=== PATIENT | female | born 1970 | race Caucasian/White ===

== ENCOUNTER → 2019-11-11 15:35 | Outpatient (CLI) | payer OTHER, SELFPAY ==
--- NOTE | ~2019-11-11 | MM_ITS ---
EXAMINATION: MM screening anisa BI w alex HISTORY: Screening mammogram TECHNIQUE: Craniocaudal and mediolateral oblique 3-D tomosynthesis images were obtained and synthetic 2-D images were generated. CAD analysis was submitted and interpreted. COMPARISON: 10/30/2018 Diagnostic right digital mammogram , 12/11/2016, 11/02/2015 bilateral digital screening mammogram examinations BREAST PARENCHYMAL COMPOSITION: The breasts are heterogeneously dense, which may obscure small masses . FINDINGS: There is no evidence of suspicious mass, calcification, or architectural distortion to sugg est malignancy in either breast. There has been no suspicious interval change. IMPRESSION: 1. No mammographic evidence of malignancy. 2. Recommend routine screening mammography in one year. BI-RADS Category 1: Negative Reviewed, dictated and finalized at location A. RANGE TENDER
== END ==
PROVIDERS: Visit Provider Obstetrics & Gynecology
DX: Z12.31 Encounter for screening mammogram for malignant neoplasm of breast (principal)
CPT/HCPCS: 77063; 77067

== ENCOUNTER → 2020-12-01 09:52 | Outpatient (CLI) | payer OTHER, SELFPAY ==
--- NOTE | ~2020-12-01 | MM_ITS ---
EXAMINATION: MM screening [facility] BI w alex HISTORY: Screening mammogram TECHNIQUE: Craniocaudal and mediolateral oblique 3-D tomosynthesis images were obtained and synthetic 2-D images were generated. CAD analysis was submitted and interpreted. COMPARISON: 11/21/2019, 10/30/2018, 10/15/2018, 12/11/2016 BREAST PARENCHYMAL COMPOSITION: The breasts are heterogeneously dense, which may obscure small masses . FINDINGS: There is no evidence of suspicious mass, calcification, or architectural distortion to sugg est malignancy in either breast. There has been no suspicious interval change. IMPRESSION: 1. No mammographic evidence of malignancy. 2. Recommend routine screening mammography in one year. BI-RADS Category 1: Negative Reviewed, dictated and finalized at location A.
== END ==
PROVIDERS: Visit Provider Obstetrics & Gynecology
DX: Z12.31 Encounter for screening mammogram for malignant neoplasm of breast (principal)
CPT/HCPCS: 77063; 77067

== ENCOUNTER → 2021-02-09 13:01 | Outpatient (CLI) | payer OTHER, SELFPAY ==
--- NOTE | ~2021-02-09 | CT_ITS ---
EXAMINATION:CT diagnostic chest wo con DATE: 02/09/2021 13:21 INDICATION: Shortness of breath. TECHNIQUE: Computed tomography (CT) of the chest was performed without intravenous contrast. Automate d exposure control and iterative reconstruction technique were employed. The dose-length product (DLP ) was 54.99 mGy-cm. COMPARISON: None. FINDINGS: There is no pneumonia or pleural effusion. The heart size is normal. No pericardial effusio n. There are coronary artery calcifications. Partially visualized is an 8.5 cm cyst in left kidney. T here is moderate thoracic spondylosis. There is mild chronic anterior wedging of T12 vertebral body. IMPRESSION: 1. Normal lungs. Reviewed, dictated and finalized at location A. IMPRESSION: 1. Normal lungs.
== END ==
DX: E78.2 Mixed hyperlipidemia (principal)
CPT/HCPCS: 71250

== ENCOUNTER → 2021-03-17 11:46 | Outpatient (CLI) | payer OTHER, SELFPAY ==
--- NOTE | ~2021-03-17 | US_ITS ---
Corrected Report Correction to Ordering Provider Order # Associated 03/17/2021 [facility] EXAMINATION: US renal BI EXAM DATE: 03/17/2021 12:05 INDICATION: Cyst of kidney, acquired. TECHNIQUE: Multiple grayscale and Doppler images of the kidneys were obtained (by a technologist who performed the scan) and subsequently reviewed. There is no prior study for comparison. FINDINGS: Right kidney: There is normal contour and echogenicity. It measures 10.1 x 4.0 x 4.4 centimeters. There are no focal renal lesions identified. There is no hydronephrosis. Left kidney: There is normal contour and echogenicity. It measures 12.8 x 5.2 x 5.1 centimeters. There is an anechoic lesion at the superior pole of the right kidney measuring up to 8.5 cm, appearance is consistent with a cyst. There is no hydronephrosis. Bladder unremarkable. IMPRESSION: Large left renal cyst. Reviewed, dictated and finalized at location B. MTDD IMPRESSION: Large left renal cyst.
== END ==
DX: N28.1 Cyst of kidney, acquired (principal)
CPT/HCPCS: 76775

== ENCOUNTER → 2021-11-08 18:07 | Outpatient (CLI) | payer OTHER, SELFPAY ==
--- NOTE | ~2021-11-08 | DEXA_ITS ---
Bone Density Report Name: BUTCH MCCORD Age: 51 Sex: Female Ethnicity: White Date of : 1970 Indication: screening for osteoporosis; prior fracture; Referring Provider: MIGUELITO, TANISHA Mon Study: Bone densitometry was performed. Exam Date: November 08, 2021 Accession number: [id number] Bone Density: Region BMD T-score Z-score Classification AP Spine (L1-L4) 0.956 -0.8 0.0 Normal Femoral Neck (Left) 0.726 -1.1 -0.3 Osteopenia Total Hip (Left) 0.824 -1.0 -0.5 Normal Femoral Neck (Right) 0.692 -1.4 -0.6 Osteopenia Total Hip (Right) 0.790 -1.2 -0.7 Osteopenia Total Hip Mean 0.807 -1.1 -0.6 Osteopenia World Health Organization criteria for BMD impression classify patients as: Normal (T-score at or above -1.0), Osteopenia (T-score between -1.0 and -2.5), or Osteoporosis (T-score at or below -2.5). 10-year Fracture Risk: FRAX not reported because: Premenopausal woman Prior hip or vertebral fracture Treated for osteoporosis Clinical Information Provided by Patient: Have had a previous hip or vertebral fracture Has had a low trauma fracture Is being treated for osteoporosis Has used the following medications: HRT (i.e. estrogen/hormone therapy), Vitamin D Patient maximum height was 63.5 No regular weight bearing exercise Does not regularly consume dairy products Drinks caffeinated beverages Onset of menses at age 15 Premenopausal Number of children 1 Impression: The patient's bone mass is within expected range for age, gender and ethnicity. The patient has risk factors, including: previous fracture. Discussion: It is important to ask patients whether they are taking their medications and to encourage continued and appropriate compliance with their osteoporosis therapies to reduce fracture risk. It is also important to review their risk factors and encourage appropriate calcium and vitamin D intakes, exercise, fall prevention and other lifestyle measures. Follow-Up: Consider a repeat BMD and Vertebral Fracture Assessment (VFA) exam in 2 years or sooner if medically necessary, to reassess this patient's status. Reported by: [facility] on 11/08/2021 6:33:00 PM. Reviewed, dictated and finalized at location Patty MARTINEZ
== END ==
PROVIDERS: PCP Internal Medicine; Visit Provider Internal Medicine
DX: Z78.0 Asymptomatic menopausal state (principal); M85.852 Other specified disorders of bone density and structure, left thigh; M85.851 Other specified disorders of bone density and structure, right thigh
CPT/HCPCS: 77080

== ENCOUNTER → 2021-12-01 14:28 | Outpatient (CLI) | payer OTHER, SELFPAY ==
--- NOTE | ~2021-12-01 | CT_ITS ---
EXAMINATION: CT abdomen wo/w con EXAM DATE: 12/01/2021 15:03 INDICATION: Cyst of kidney . TECHNIQUE: Spiral CT of the abdomen was performed without and then with intravenous injection of 100 mL Omnipaque 350. Axial, coronal and sagittal images of the abdomen were reviewed. The dose-length product (DLP) for this examination was 478.53 mGy-cm. The exposure was tailored according to patien t size (auto mA exposure control), and iterative reconstruction (ASIR) was used as additional dose re duction technique. Correlation is made to kidney ultrasound 03/17/2021. FINDINGS: The liver, spleen, adrenal glands and pancreas are unremarkable. There are gallstones with in an otherwise unremarkable gallbladder. No evidence of obstructive biliary disease. Portal and sp lenic veins are patent. Kidneys enhance symmetrically. There is no hydronephrosis. There is no neph rolithiasis on the noncontrast scan. There is a 9 cm cyst in the superior pole of the left kidney. There is no retroperitoneal lymphadenopathy. The appendix is normal. The stomach and small bowel are unremarkable. There is expected amount of c olonic stool. No free intraperitoneal gas. The heart is normal in size. There are no pericardial or pleural effusions. The lung bases are unremarkable. The bones are unremarkable. IMPRESSION: 1. Large left renal cyst. Reviewed, dictated and finalized at location G. IMPRESSION: 1. Large left renal cyst.
[2021-12-01 14:51] LABS: Estimated Glomerular Filt Rate > 60
== END ==
PROVIDERS: PCP Internal Medicine; Visit Provider Urology
DX: N28.1 Cyst of kidney, acquired (principal)
CPT/HCPCS: 74170; Q9967

== ENCOUNTER → 2022-03-23 14:59 | Outpatient (CLI) | payer OTHER, SELFPAY ==
--- NOTE | ~2022-03-23 | MR_ITS ---
EXAMINATION: MR IAC wo/w con DATE: 03/23/2022 16:04 INDICATION: Asymmetric sensorineural hearing loss, right greater than left TECHNIQUE: Magnetic resonance imaging (MRI) of the brain and brainstem was performed without and with 12 mL Multihance intravenous contrast. Sequences included sagittal and axial T1-weighted FSE, axial diffusion-weighted FS EPI, axial T2*-weighted GRE, axial T2-weighted FLAIR Propeller, axial T2-weight ed Propeller, small pxiwi-fe-ztqw coronal FIESTA, small fmcai-qt-klyq coronal T1-weighted FSE, and sm all nhjfp-zo-fcmb axial T1-weighted SPGR. Postcontrast sequences included axial T1-weighted FSE, smal l ufhcu-ze-evis coronal T1-weighted FSE, and small thsdd-kr-nkuj axial T1-weighted SPGR. Apparent dif fusion coefficient (ADC) maps were created. COMPARISON: None. FINDINGS: There are no areas of restricted diffusion to suggest acute infarction. Tiny T2 hyperintense old lacu selena infarct in the right mid brain in the region of the substantia nigra and zeny cerebri. No intracr anial hemorrhage or abnormal intracranial mass lesion. There are no intraparenchymal signal abnormali ties seen on the other pulse sequences. The ventricles are symmetric and normal in size. There are no abnormal extra-axial fluid collections. Normal seventh/eighth cranial nerve complexes. The cochlea a nd semicircular canals are normal on both the left and right. No cerebellopontine angles masses. No evidence of mastoid or middle ear fluid. Flow voids are seen in the cerebral arteries on the T2-marilynn ghted sequences consistent with their expected patency. Mild mucosal thickening the bilateral ethmoid sinuses. Visualized orbits and soft tissues are unremarkable. There are no areas of abnormal enhance ment on the post contrast images. IMPRESSION: 1. Tiny old lacunar infarct in the right midbrain. Otherwise normal brain. Reviewed, dictated and finalized at location B.
[2022-03-23 15:24] LABS: Estimated Glomerular Filt Rate > 60
== END ==
PROVIDERS: PCP Internal Medicine; Visit Provider Otolaryngology
DX: H90.5 Unspecified sensorineural hearing loss (principal); I63.81 Other cerebral infarction due to occlusion or stenosis of small artery
CPT/HCPCS: 70553; A9577

== ENCOUNTER → 2022-10-23 16:17 | Outpatient (CLI) | payer OTHER, SELFPAY ==
--- NOTE | ~2022-10-23 | MM_ITS ---
EXAMINATION: MM screening anisa BI w alex HISTORY: Screening TECHNIQUE: Craniocaudal and mediolateral oblique 3-D tomosynthesis images were obtained and synthetic 2-D images were generated. CAD analysis was submitted and interpreted. COMPARISON: Comparison to multiple prior studies sequentially, with oldest reviewed study dated 11/02. BREAST PARENCHYMAL COMPOSITION: The breasts are heterogeneously dense, which may obscure small masses FINDINGS: There is no evidence of suspicious mass, calcification, or architectural distortion to sugg est malignancy in either breast. There has been no suspicious interval change. IMPRESSION: 1. No mammographic evidence of malignancy. 2. Recommend routine screening mammography in one year. BI-RADS Category 1: Negative Reviewed, dictated and finalized at location A. PILOT ENGINEER
== END ==
PROVIDERS: PCP Obstetrics & Gynecology; Visit Provider Obstetrics & Gynecology
DX: Z12.31 Encounter for screening mammogram for malignant neoplasm of breast (principal)
CPT/HCPCS: 77063; 77067

== ENCOUNTER → 2022-11-03 09:11 | Outpatient (CLI) | payer OTHER, SELFPAY ==
--- NOTE | ~2022-11-03 | US_ITS ---
US renal BI 11/03/2022 09:52 Procedure: Realtime transabdominal ultrasound of the kidneys and bladder. Indication: Left renal cyst Comparison: 03/17/2021 Findings: Renal echotexture is normal bilaterally without hydronephrosis, contour deforming mass or r enal calculus. There is a 9 cm left renal cyst. The right kidney measures 10.9 cm and left kidney ryder sures 13.1 cm. Bladder within normal limits. Impression: 1: Left renal cyst measuring 9 cm. Reviewed, dictated and finalized at location B. E FERRY OPERATOR Impression: 1: Left renal cyst measuring 9 cm.
== END ==
PROVIDERS: PCP Internal Medicine; Visit Provider Internal Medicine
DX: N28.1 Cyst of kidney, acquired (principal)
CPT/HCPCS: 76775

== ENCOUNTER 2022-11-07 12:05 | Day surgery (SDC) | payer OTHER, SELFPAY ==
[2022-11-01 08:10] VITALS: BMI 25.0
--- NOTE | 2022-11-06 07:54 | SUR.PREOP ---
11/06/2022- contacted patient to confirm approved ride home- patient was planning on taking uber /public transportation home- informed patient of medical transport service [facility] contracts- the number to [facility] was given to patient
--- NOTE | 2022-11-06 15:18 | P.PNAN_ITS ---
Anes - Initial Pre Proc Eval Procedure: Operation Date: 11/07/22 14:00 Proposed Procedures p Esophagogastroduodenoscopy - Jordin Hernandez MD Date/Time: 11/06/22 15:18 Surgeon: Jordin Hernandez MD Pre Op Diagnosis: Other Diseases of Stomach and Duodenum Patient Data Age: 52 Gender: F Height: 1.6 m Weight: 64 kg Allergies Allergy/AdvReac Type Severity Reaction Status Date / Time No Known Allergies Allergy Mild Unverified 03/20/07 13:06 Home Medications Medication Instructions Recorded Confirmed Type sodium,potassium,mag sulfates 17.5 See Rx Instructions PO .COMPLEX 09/08/20 11/01/22 Rx gram-3.13 gram-1.6 gram oral soln #354 mL (Suprep Bowel Prep Kit) lumateperone 42 mg capsule 42 mg PO DAILY 11/01/22 11/01/22 History (Caplyta) pantoprazole 40 mg tablet,delayed 40 mg PO DAILY 11/01/22 11/01/22 History release viloxazine 200 mg capsule,extended 200 mg PO DAILY 11/01/22 11/01/22 History release 24 hr (Qelbree) Patient hx anesthesia problems: none Family hx anesthesia problems: none Results Review: All pre-operative results and documents have been reviewed as part of the pre- operative evaluation. [facility] Past Medical History Medical History (Updated 11/07/22 @ 14:33 by Rodrigo Caldwell DO) Anxiety Asthma Depression GERD (gastroesophageal reflux disease) History of CVA (cerebrovascular accident) seen on CT Social History Social History Smoking status: Never smoker Alcohol intake: current Alcohol use details: once a week Substance use: never Substance use type: does not use Living arrangements: alone Spiritual care concerns: No Anes - Eval Final PreProcedure Day of Procedure 11/06/22 15:18 Patient weight: normal Heart: regular rate and rhythm Lungs: clear to auscultation and normal air movement Airway: Mallampati scale class II Neurological: alert and oriented Last oral intake: >/= 8 hours ASA classification: III Emergent: no Anesthetic plan: proceed Anesthesia type and monitoring: general GIVS and standard monitoring Results Review: All pre-operative results and documents have been reviewed as part of the pre- operative evaluation. Informed Consent: The patient's anesthetic plan and its attendant risks and benefits were discussed with the patient/family/POA. Questions were solicited and answers provided to the satisfaction of the patient/family/POA.
--- NOTE | 2022-11-06 17:16 | PM.HPGS ---
History of Present Illness History of Present Illness Consent: Risks, benefits, and alternatives have been discussed and questions answered. Patient agrees to proceed with procedure. Chief complaint: Other Diseases of Stomach and Duodenum Narrative: Nicole Marina is a 52 year old female referred for endoscopy . She has a couple of issues. She has noticed near the bottom of her ribcage bilaterally protrusion from time to time that she wonders if it may be hernias. She also had a spell last April were for solid months she was unable to eat due to nausea. She lost about 20 lb. She denies dysphagia. She has no history of ulcers. Review of Systems Review of Systems: All systems reviewed & are unremarkable except as noted in HPI and below PMFSH Past Medical History Medical History Anxiety Asthma Depression GERD (gastroesophageal reflux disease) Social History Social History Smoking status: Never smoker Alcohol intake: current Alcohol use details: once a week Substance use: never Substance use type: does not use Living arrangements: alone Spiritual care concerns: No Meds Home Medications and Allergies Home Medications Medication Instructions Recorded Confirmed Type sodium,potassium,mag sulfates 17.5 See Rx Instructions PO .COMPLEX 09/08/20 11/01/22 Rx gram-3.13 gram-1.6 gram oral soln #354 mL (Suprep Bowel Prep Kit) lumateperone 42 mg capsule 42 mg PO DAILY 11/01/22 11/01/22 History (Caplyta) pantoprazole 40 mg tablet,delayed 40 mg PO DAILY 11/01/22 11/01/22 History release viloxazine 200 mg capsule,extended 200 mg PO DAILY 11/01/22 11/01/22 History release 24 hr (Qelbree) Allergies Allergy/AdvReac Type Severity Reaction Status Date / Time No Known Allergies Allergy Mild Unverified 03/20/07 13:06 Exam Const: General: alert Orientation/consciousness: patient oriented x3 Resp: Auscultation: clear to auscultation bilaterally Cardio: Rhythm: regular rhythm GI: GI Palp: Yes Soft to palpation and No Tenderness to palpation present (GI) Neuro: General: patient oriented x3 Assessment and Plan Assessment and plan (1) Dyspepsia: Code(s): R10.13 - Epigastric pain Status: Acute Assessment and Plan: EGD with possible biopsy or dilatation or cautery.
[2022-11-07 13:04] VITALS: BP 143/92; PULSE 75; RESP 18; TEMP 37.4; O2SAT 100; BMI 23.6
[2022-11-07] MEDS: LACTATED RINGERS 1,000 ML 150 ML IV CONT (13:32)
[2022-11-07 14:22] VITALS: BP 112/80; PULSE 81; RESP 14; O2SAT 98
[2022-11-07 14:32] VITALS: BP 130/86; PULSE 66; RESP 16; O2SAT 99
--- NOTE | 2022-11-07 14:33 | WPDANESPN ---
Anes - Prog Note Post-Op Date/Time: 11/07/22 14:33 Cardiovascular status: normal Respiratory status: normal Airway patency: baseline Mental status: baseline Post-Op hydration status: normal Vital Signs: Last Vital Signs Temp 37.4 C 11/07/22 13:04 Pulse 81 11/07/22 14:22 Resp 14 11/07/22 14:22 BP 112/80 11/07/22 14:22 Pulse Ox 98 11/07/22 14:22 O2 Del Method Room Air 11/07/22 14:22 Pain Score (VAS): 0 Post-procedural complaints: none Patient Feedback: Patient satisfied with anesthetic care. Other Findings: Patient vital signs back to baseline. Patient denies nausea and vomiting. Patient's pain under control. Patient OK for discharge.
[2022-11-07 14:42] VITALS: BP 128/80; PULSE 70; RESP 16; O2SAT 99
== END 2022-11-07 15:10 | disposition home or self-care (01) ==
PROVIDERS: PCP Internal Medicine; Visit Provider Internal Medicine Gastroenterology
PROC: 0DJ08ZZ Inspection of Upper Intestinal Tract, Via Natural or Artificial Opening Endoscopic (ICD-10-PCS; CPT 43235; principal; 2022-11-07 14:00)
DX: R10.13 Epigastric pain (principal)
CPT/HCPCS: 43239

== ENCOUNTER → 2023-09-03 15:32 | Outpatient (CLI) | payer OTHER, SELFPAY ==
--- NOTE | ~2023-09-03 | US_ITS ---
EXAMINATION: US carotid duplex BI DATE: 09/03/2023 15:53 INDICATION: Dizziness and giddiness TECHNIQUE: Grayscale, color Doppler, and pulsed Doppler images of the cervical carotid arteries were obtained. The degree of vessel stenosis is placed in one of the following categories: normal, <50%, 5 0-69%, >=70% but less than near-occlusion, near-occlusion, or total occlusion. Note that percent sten osis relative to normal distal artery lumen diameter is indirectly measured from velocity measurement s as described by Steve, et al. Radiology 2003; 229:340-346. COMPARISON: None. FINDINGS: RIGHT: The right common carotid artery (CCA) peak systolic velocity (PSV) is 89 cm/s. The right internal car otid artery (ICA) PSV is 67 cm/s. The right ICA end-diastolic velocity (EDV) is 23 cm/s. The right IC A/CCA PSV ratio is 1.3. Grayscale and color Doppler images yield an estimate of <50% diameter reducti on from plaque in the ICA. The external carotid artery (ECA) PSV is 60 cm/s. There is antegrade flow in the right vertebral artery. LEFT: The left CCA PSV is 77 cm/s. The left ICA PSV is 89 cm/s. The left ICA EDV is 35 cm/s. The left ICA/C CA PSV ratio is 1.2. Grayscale and color Doppler images yield an estimate of <50% diameter reduction from plaque in the ICA. The ECA PSV is 45 cm/s. There is antegrade flow in the left vertebral artery. IMPRESSION: 1. <50% stenosis from minimal plaque in the right internal carotid artery. 2. <50% stenosis from minimal plaque in the left internal carotid artery. Reviewed, dictated and finalized at location A. I CUTTER
== END ==
PROVIDERS: PCP Internal Medicine; Visit Provider Internal Medicine
DX: I65.23 Occlusion and stenosis of bilateral carotid arteries (principal)
CPT/HCPCS: 93880

== ENCOUNTER 2023-12-18 16:14 | Outpatient (CLI) | payer OTHER, SELFPAY ==
--- NOTE | ~2023-12-18 | MM_ITS ---
EXAMINATION: MM screening anisa BI w alex HISTORY: Screening mammogram TECHNIQUE: Craniocaudal and mediolateral oblique 3-D tomosynthesis images were obtained and synthetic 2-D images were generated. CAD analysis was submitted and interpreted. COMPARISON: October 23, 2022, December 01, 2020 bilateral screening mammogram examination BREAST PARENCHYMAL COMPOSITION: The breasts are heterogeneously dense, which may obscure small masses . FINDINGS: There is no evidence of suspicious mass, calcification, or architectural distortion to sugg est malignancy in either breast. There has been no suspicious interval change. IMPRESSION: 1. No mammographic evidence of malignancy. 2. Recommend routine screening mammography in one year. BI-RADS Category 1: Negative Reviewed, dictated and finalized at location A.
== END 2023-12-18 16:15 ==
LOC: MICIMG 16:15
PROVIDERS: PCP Obstetrics & Gynecology; Visit Provider Obstetrics & Gynecology
DX: Z12.31 Encounter for screening mammogram for malignant neoplasm of breast (principal)
CPT/HCPCS: 77063; 77067

== ENCOUNTER 2024-05-02 10:45 | Outpatient (CLI) | payer OTHER, SELFPAY ==
--- NOTE | ~2024-05-02 | DEXA_ITS ---
Bone Density Report Name: BUTCH ELLSWORTH Age: 53 Sex: Female Ethnicity: White Date of : 1970 Indication: postmenopausal; screening for osteoporosis; height loss; asthma or emphysema; Referring Provider: MIGUELITO, TANISHA Mon Study: Bone densitometry was performed. Exam Date: May 02, 2024 Accession number: [id number] Bone Density: Region BMD T-score Z-score Classification AP Spine(L1-L4) 0.938 -1.0 0.0 Normal Femoral Neck (Left) 0.742 -1.0 0.0 Normal Total Hip (Left) 0.908 -0.3 0.3 Normal Femoral Neck (Right) 0.682 -1.5 -0.5 Osteopenia Total Hip (Right) 0.876 -0.5 0.1 Normal Total Hip Mean 0.892 -0.4 0.2 Normal World Health Organization criteria for BMD impression classify patients as: Normal (T-score at or above -1.0), Osteopenia (T-score between -1.0 and -2.5), or Osteoporosis (T-score at or below -2.5). 10-year Fracture Risk(1): Major Osteoporotic Fracture 6.3% Hip Fracture 0.5% Reported Risk Factors: [place] (), Neck BMD=0.682, BMI=25.1 (1) FRAX(R) Version 3.08. Fracture probability calculated for an untreated patient. Fracture probability may be lower if the patient has received treatment. Clinical Information Provided by Patient: Has used the following medications: Calcium Has the following medical conditions: Asthma or Emphysema Patient maximum height was 63.5 No regular weight bearing exercise Drinks caffeinated beverages Onset of menses at age 16 Number of children 1 Impression: The patient has low bone mass, based on the Right Femoral Neck T-score. The patient has an estimated ten-year risk of hip fracture of 0.5% and an estimated ten-year risk of major fracture of 6.3%, based on the WHO FRAX algorithm. Discussion: BONE DENSITY IS LOW AT ONE OR MORE SKELETAL SITES. This patient's lowest T-score is low at one or more skeletal sites. It meets the World Health Organization's (WHO) criteria for ?low bone mass? (T-score between -1.0 and -2.5). The patient's 10-year risk of fracture as calculated by FRAX is less than the threshold where pharmacological therapy is recommended by the National Osteoporosis Foundation (NOF). However, all treatment decisions require clinical judgment and consideration of individual patient factors, including patient preferences, comorbidities, previous drug use, risk factors not captured in the FRAX model (e.g., frailty, falls, vitamin D deficiency, increased bone turnover, interval significant decline in bone density) and possible under or overestimation of fracture risk by FRAX. The patient should follow a healthful lifestyle (good nutrition with adequate calcium and vitamin D, and appropriate weight-bearing exercise). Follow-Up: Consider repeating this study in 2 to 3 years to reassess this patient's status, or soon
== END 2024-05-02 10:46 | disposition home or self-care (01) ==
LOC: ANHIMG 10:46
PROVIDERS: PCP Obstetrics & Gynecology; Visit Provider Internal Medicine
DX: Z78.0 Asymptomatic menopausal state (principal); M85.851 Other specified disorders of bone density and structure, right thigh
CPT/HCPCS: 77080

== ENCOUNTER 2024-06-05 10:52 | Emergency (ER) | payer OTHER, SELFPAY ==
--- NOTE | ~2024-06-05 | CT_ITS ---
EXAMINATION: CTA brain carotid DATE: 06/05/2024 15:51 INDICATION: left sided weakness TECHNIQUE: Computed tomographic angiography (CTA) of the head and neck was performed without and with 100 mL Omnipaque-350 intravenous contrast. Automated exposure control and iterative reconstruction t [employer] were employed. The dose-length product was 864.83 mGy-cm. Maximum intensity projection and volume rendered 3D-reconstructions were created by the technologist on a separate workstation. COMPARISON: CT brain, same date. FINDINGS: CTA HEAD: No large vessel occlusion, aneurysm, high flow vascular malformation, nidus or extravasation. Persist ent origin of the right [employer]BER. Symmetric parenchymal enhancement. Decreased enhancement in the le ft sigmoid sinus. No enhancement noted in the jugular bulb. Minimal enhancement in the left internal jugular vein. The remaining cerebral veins are patent. CTA NECK: Aortic arch and proximal great vessels: Normal arch anatomy. Mild arch calcification. Right common carotid, carotid bifurcation, and internal carotid artery: No plaque.There is 0% stenosi s of the proximal right internal carotid artery relative to normal distal artery lumen diameter (NASC ET criteria). Left common carotid, carotid bifurcation, and internal carotid artery: No plaque.There is 0% stenosis of the proximal left internal carotid artery relative to normal distal artery lumen diameter (NASCET criteria). Vertebral arteries: No significant plaque or stenosis. Other findings: Decreased enhancement in the left internal jugular vein relative to the right. Cervic al spondylosis. IMPRESSION: No large vessel intracranial occlusion, high-grade intracranial stenosis, or aneurysm. No carotid or vertebral artery occlusion, dissection, or significant stenosis. Possible left sigmoid sinus and jugular bulb venous thrombosis, versus artifact from mixing with unop acified venous blood. Consider MRV for further evaluation. Reviewed, dictated and finalized at location K. IMPRESSION: No large vessel intracranial occlusion, high-grade intracranial stenosis, or an eurysm. No carotid or vertebral artery occlusion, dissection, or significant stenosis. Possible left sigmoid sinus and jugular bulb venous thrombosis, versus artifact from mixing with unopacified venous blood. Consider MRV for further evaluation .
--- NOTE | ~2024-06-05 | XR_ITS ---
EXAMINATION: XR chest 1V portable 06/05/2024 11:50 INDICATION: Left arm weakness. Hypertension. PROCEDURE: PA view chest COMPARISON: 08/25/2013 FINDINGS: The lungs are clear. The cardiomediastinal silhouette is within normal limits. There are no pleural effusions. There is no pneumothorax suspected. IMPRESSION: 1: NO ACUTE CARDIOPULMONARY DISEASE. Reviewed, dictated and finalized at location B.
--- NOTE | ~2024-06-05 | CT_ITS ---
EXAMINATION: CT brain wo con DATE: 06/05/2024 11:41 INDICATION: Left arm weakness. TECHNIQUE: Computed tomography (CT) of the head was performed without intravenous contrast. Sagittal and coronal reconstructions were performed. The mA was adjusted according to patient size. Iterative reconstruction technique was employed. The dose-length product was 605.33 mGy-cm. COMPARISON: Brain MR dated 03/23/2022 FINDINGS: No acute intracranial hemorrhage, acute infarction or abnormal extra axial fluid collection. Ventricl es are normal and symmetric. No mass/mass effect. The orbits, paranasal sinuses and mastoid air cell s are normal. IMPRESSION: 1. Normal head CT. Reviewed, dictated and finalized at location A. IMPRESSION: 1. Normal head CT.
[2024-06-05 11:18] VITALS: BP 148/98; PULSE 78; RESP 16; TEMP 36.6; O2SAT 100
--- NOTE | 2024-06-05 11:24 | ECG_ITS ---
Test Date: 2024-06-05 11:28:46 Measurements Intervals [place] Rate: 70 P: 51 [place]: 133 QRS: 63 QRSD: 86 T: 61 QT: 366 QTc: 397 Interpretive Statements SINUS RHYTHM BASELINE ARTIFACT- I, II, III, AVR, AVL NORMAL ECG No previous ECG available for comparison Electronically Signed On 06-05-2024 11:51:46 CDT by Ephraim Dueñas D.O.
[2024-06-05 11:40] LABS: Basophils Percent Auto 0.5 % (0.2-1.2); Eosinophils Absolute Auto 0.1 K/mm3 (0-0.3); Eosinophils Percent Auto 1.2 % (0-4.4); Hematocrit 44.5 % (37.0-47.0); Hemoglobin 15.1 g/dL (12.0-15.0); Immature Granulocyte Absolute 0.02 K/mm3 (0.00-0.031); Immature Granulocyte Percent A 0.2 % (0-0.5); Lymphocytes Absolute Auto 1.46 K/mm3 (0.9-3.2); Lymphocytes Percent Auto 16.5 % (18.3-44.2); Mean Corpuscular HGB Conc 33.9 g/dl (32-36); Mean Corpuscular Hemoglobin 31.1 pg (26-34); Mean Corpuscular Volume 91.8 fl (80-100); Mean Platelet Volume 9.7 fl (7.4-10.4); Monocytes Absolute Auto 0.4 K/mm3 (0.1-0.6); Monocytes Percent Auto 4.6 % (2.6-8.5); Neutrophils Absolute Auto 6.8 K/mm3 (1.3-6.7); Platelet Count Result 166 k/mm3 (150-375); Red Blood Count 4.85 M/mm3 (4.2-5.4); Red Cell Distribution Width 12.7 % (11.5-14.5); White Blood Count 8.9 K/mm3 (4.5-10.0)
[2024-06-05 11:50] LABS: Prothrombin Time 13.4 Seconds (11.1-14.7)
[2024-06-05 11:51] LABS: Partial Thromboplastin Time 26.9 Seconds (22.3-36.8)
[2024-06-05 12:04] LABS: Alanine Aminotransferase 15 U/L (6-35); Albumin Level 4.6 g/dL (3.5-5.1); Alkaline Phosphatase 55 U/L (38-126); Anion Gap 8 mmol/L (4-12); Aspartate Amino Transferase 25 U/L (14-36); Bilirubin,Total 1.3 mg/dL (0.2-1.3); Blood Urea Nitrogen 11 mg/dL (7-17); Calcium 9.6 mg/dL (8.4-10.2); Carbon Dioxide 27 mmol/L (22-30); Chloride 104 mmol/L (98-107); Estimated CRCL calculation 50 ml/min; Estimated Glomerular Filt Rate > 60; Glucose 102 mg/dL (65-110); Potassium 3.8 mmol/L (3.4-5.0); Sodium 139 mmol/L (137-145)
[2024-06-05 12:14] LABS: Troponin I < 0.012 ng/mL (0.000-0.034)
[2024-06-05 13:43] VITALS: BP 140/82; PULSE 68; RESP 16; TEMP 36.6; O2SAT 100
--- NOTE | 2024-06-05 14:25 | ED.EXTPRO ---
HPI - Extremity Problem General Chief complaint: Extremity Problem,Nontraumatic Stated complaint: high blood pressure Time Seen by Provider: 06/05/24 14:04 History of Present Illness HPI Narrative: 53-year-old female presenting to the emergency department for evaluation of some left-sided weakness. Patient states that this morning at approximately 10:15 a.m. she was in class when she reached behind her back with her left arm to grab her phone and noticed that her left arm was not working as well. Patient states that the symptoms lasted approximately 3 minutes. Patient denies any speech issues or symptoms affecting her lower legs. Patient states that the left hand weakness has resolved. Patient reports that she does feel that her bilateral lower legs have been weaker over the course of the last week Patient reports in 2019 she does have prior history of a possible CVA that was incidental and found on imaging. Related Data Home Medications Medication Instructions Recorded Confirmed viloxazine 200 mg capsule,extended 200 mg PO DAILY 11/01/22 11/01/22 release 24 hr (Qelbree) ezetimibe 10 mg tablet 10 mg PO DAILY 05/27/24 Allergies Allergy/AdvReac Type Severity Reaction Status Date / Time No Known Allergies Allergy Mild Verified 06/05/24 14:26 Review of Systems Review of Systems: All systems reviewed & are unremarkable except as noted in HPI and below PMFSH Past Medical History Medical History Anxiety Asthma Depression GERD (gastroesophageal reflux disease) History of CVA (cerebrovascular accident) seen on CT Social History Social History Smoking status: Never smoker Alcohol intake: current Alcohol use details: once a week Substance use: never Substance use type: does not use Living arrangements: alone Spiritual care concerns: No Exam Narrative: APPEARANCE: Well appearing, no pain, no distress, well-nourished. HEAD: normocephalic, atraumatic. EYES: PERRLA/EOMI, conjunctivae clear. NOSE: Normal no drainage EARS:TMS clear with good light reflex. THROAT: Pharynx clear, no exudate. NECK: Supple. No adenopathy, no masses. RESPIRATORY: Airway patent, respirations nonlabored. Clear to auscultation bilaterally, no rales, rhonchi, wheezing. CARDIOVASCULAR: Regular rate and rhythm without murmurs rubs or gallops. ABDOMINAL: Soft, nontender, nondistended, normal bowel sounds MUSCULOSKELETAL: Moves all extremities. Strength/ROM intact, No edema, No calf tenderness. NEURO: Alert. Cranial nerves II through XII intact. Grossly intact. Possible increase in weakness on left arm and left leg but did improve with motivation during the neuro exam. Patient had negative Romberg, normal tandem gait, normal heel and toe stand. SKIN: Warm, dry. Normal Color Course Course Emergency Course: Patient was transferred to [facility] for further neurologic evaluation Vital Signs Vital signs: Vital Signs Temperature 97.8 F 06/05/24 11:18 Pulse Rate 78 06/05/24 11:18 Respiratory Rate 16 06/05/24 11:18 Blood Pressure 148/98 H 06/05/24 11:18 Pulse Oximetry 100 06/05/24 11:18 Oxygen Delivery Room Air 06/05/24 11:18 Temperature 97.8 F 06/05/24 13:43 Pulse Rate 76 06/05/24 19:28 Respiratory Rate 19 06/05/24 19:28 Blood Pressure 144/82 H 06/05/24 19:28 Pulse Oximetry 99 06/05/24 19:28 Oxygen Delivery Room Air 06/05/24 11:18 MDM - Extremity (Nontraumatic) MDM Narrative Medical decision making narrative: 53-year-old female presented emergency department for evaluation for possible CVA. Patient is afebrile with no leukocytosis and hemoglobin of 15.1. INR is 1.0. Patient has no acute abnormalities on her CMP, initial head CT showed no acute intracranial abnormality. Chest x-ray shows no acute cardiopulmonary abnormality. CTA was ordered to evaluate for possible thromb
[2024-06-05 18:37] VITALS: BP 139/93; PULSE 71; RESP 18; O2SAT 99
[2024-06-05] MEDS: ASPIRIN 81 MG CHEWABLE TABLET 324 MG (19:03)
[2024-06-05 19:28] VITALS: BP 144/82; PULSE 76; RESP 19; O2SAT 99
--- NOTE | 2024-06-05 19:52 | PC.NURSE ---
Attempted to call nurse report to JALYN Quezada @ [facility] stated she would call back shortly.
== END 2024-06-05 21:06 | disposition short-term general hospital (02) ==
PROVIDERS: Preventive Medicine Aerospace Medicine; Emergency Provider Emergency Medicine; PCP Internal Medicine
DX: R53.1 Weakness (principal); J45.909 Unspecified asthma, uncomplicated; K21.9 Gastro-esophageal reflux disease without esophagitis; R93.0 Abnormal findings on diagnostic imaging of skull and head, not elsewhere classified
CPT/HCPCS: 36415; 70450; 70496; 70498; 71045; 80053; 84484; 85025; 85610; 85730; 93005; 99285; A9270; Q9967

== ENCOUNTER 2024-06-12 23:14 | Emergency (ER) | payer OTHER, SELFPAY ==
--- NOTE | ~2024-06-12 | XR_ITS ---
EXAMINATION: XR ankle RT min 3V DATE: 06/12/2024 23:34 INDICATION: Right ankle pain. Fall. TECHNIQUE: 3 views of right ankle were obtained. COMPARISON: None. FINDINGS: Alignment is normal. No fracture. Joint spaces are normal. There is an enthesophyte at plan tar aspect of calcaneal tuberosity. Ankle soft tissue swelling is noted. IMPRESSION: 1. No fracture. Reviewed, dictated and finalized at location A. IMPRESSION: 1. No fracture.
[2024-06-12 23:16] VITALS: BP 135/84; PULSE 88; RESP 17; TEMP 36.8; O2SAT 99
--- NOTE | 2024-06-13 00:23 | ED.GENADULT ---
HPI - General Adult General Chief complaint: Extremity Injury, Lower Stated complaint: R ankle pain Time Seen by Provider: 06/12/24 23:54 History of Present Illness HPI narrative: Patient 54-year-old female who presents emergency department with chief complaint of right ankle injury. The patient states she was seen in the emergency department last weekend and was transferred to [facility] the patient had MRI that showed that she did not have a CVA patient was discharged point reports she had no weakness in her arms patient reports no slurred speech no facial droop Related Data Home Medications Medication Instructions Recorded Confirmed viloxazine 200 mg capsule,extended 200 mg PO DAILY 11/01/22 11/01/22 release 24 hr (Qelbree) ezetimibe 10 mg tablet 10 mg PO DAILY 05/27/24 Allergies Allergy/AdvReac Type Severity Reaction Status Date / Time No Known Allergies Allergy Mild Verified 06/12/24 23:15 Review of Systems Review of Systems: A 10 system review of systems was completed on the patient and is negative except for what is stated in the HPI. Nursing and ancillary documentation was reviewed. [facility] Past Medical History Medical History Anxiety Asthma Depression GERD (gastroesophageal reflux disease) History of CVA (cerebrovascular accident) seen on CT Social History Social History Smoking status: Never smoker Alcohol intake: current Alcohol use details: once a week Substance use: never Substance use type: does not use Living arrangements: alone Spiritual care concerns: No Exam Narrative: GENERAL: Well-appearing, well-nourished, and in no acute distress. HEAD: Normocephalic, atraumatic. EYES: PERRLA and EOMI. ENT: Nares clear, no rhinorrhea or epistaxis. Mucous membranes moist. NECK: Supple. CHEST: Clear to auscultation. No respiratory distress. HEART: Regular rate and rhythm. No murmur heard. Normal peripheral pulses. ABDOMEN: Soft, nontender, nondistended, normal active bowel sounds. EXTREMITIES: Normal range of motion tenderness to palpation on the lateral malleolus of the right ankle. No edema. SKIN: Warm, dry, no rash. NEURO: No focal deficits. Alert and oriented x3. PSYCH: Normal mood and affect. Course Vital Signs Vital signs: Vital Signs Temperature 36.8 C 06/12/24 23:16 Pulse Rate 88 06/12/24 23:16 Respiratory Rate 17 06/12/24 23:16 Blood Pressure 135/84 06/12/24 23:16 Pulse Oximetry 99 06/12/24 23:16 Oxygen Delivery Room Air 06/12/24 23:16 Temperature 36.8 C 06/12/24 23:16 Pulse Rate 88 06/12/24 23:16 Respiratory Rate 17 06/12/24 23:16 Blood Pressure 135/84 06/12/24 23:16 Pulse Oximetry 99 06/12/24 23:16 Oxygen Delivery Room Air 06/12/24 23:16 Medical Decision Making MDM Narrative Medical decision making narrative: Differential diagnosis includes ankle sprain, ankle fracture, Patient shows no focal neurological deficits this time Plain film x-ray of the right ankle showed no evidence of fracture The patient will be placed in Alvarez wrap and will be placed in crutches with weight-bearing as tolerated Vital Signs Vital Signs: Vital Signs Temperature 36.8 C 06/12/24 23:16 Pulse Rate 88 06/12/24 23:16 Respiratory Rate 17 06/12/24 23:16 Blood Pressure 135/84 06/12/24 23:16 Pulse Oximetry 99 06/12/24 23:16 Oxygen Delivery Room Air 06/12/24 23:16 Temperature 36.8 C 06/12/24 23:16 Pulse Rate 88 06/12/24 23:16 Respiratory Rate 17 06/12/24 23:16 Blood Pressure 135/84 06/12/24 23:16 Pulse Oximetry 99 06/12/24 23:16 Oxygen Delivery Room Air 06/12/24 23:16 Discharge Plan Discharge Clinical Impression: Right ankle sprain Patient Disposition: Home, Self-Care Condition: Stable Instructions: Antibiotic Form, Ankle Sprain (ED),
[2024-06-13 00:40] VITALS: BP 124/83; PULSE 77; RESP 14; O2SAT 98
== END 2024-06-13 00:44 | disposition home or self-care (01) ==
PROVIDERS: Emergency Provider Emergency Medicine; PCP Internal Medicine
DX: S93.401A Sprain of unspecified ligament of right ankle, initial encounter (principal); J45.909 Unspecified asthma, uncomplicated; K21.9 Gastro-esophageal reflux disease without esophagitis; Z79.899 Other long term (current) drug therapy; X50.9XXA Other and unspecified overexertion or strenuous movements or postures, initial encounter
CPT/HCPCS: 73610; 99283

== ENCOUNTER 2024-06-16 02:00 | Emergency (ER) | payer OTHER, SELFPAY ==
--- NOTE | ~2024-06-16 | XR_ITS ---
Clinical Indication: Anxiety, lightheadedness AP and lateral views of the chest: Comparison: 06/05/2024 Findings: The lungs are clear, without evidence of focal consolidation or pleural effusion. Cardiome diastinal silhouette is within normal limits. Bones and soft tissues are unremarkable. Impression: Normal chest. Reviewed, dictated and finalized at location . Impression: Normal chest.
[2024-06-16 02:02] VITALS: PULSE 118; RESP 23; O2SAT 98
--- NOTE | 2024-06-16 02:05 | ECG_ITS ---
Test Date: 2024-06-16 02:09:41 Measurements Intervals [place] Rate: 93 P: 49 NC: 131 QRS: 56 QRSD: 93 T: 57 QT: 353 QTc: 440 Interpretive Statements BASELINE ARTIFACT, POOR QUALITY TRACING SINUS RHYTHM GROSSLY NORMAL ECG Compared to ECG 06/05/2024 11:28:46 No significant changes Electronically Signed On 06-16-2024 07:32:42 CDT by Surya Orlando M.D.
[2024-06-16 02:16] LABS: Basophils Absolute Auto 0.1 K/mm3 (0.0-0.1); Basophils Percent Auto 0.7 % (0.2-1.2); Eosinophils Absolute Auto 0.4 K/mm3 (0-0.3); Eosinophils Percent Auto 3.6 % (0-4.4); Hematocrit 42.6 % (37.0-47.0); Hemoglobin 15.2 g/dL (12.0-15.0); Immature Granulocyte Absolute 0.02 K/mm3 (0.00-0.031); Immature Granulocyte Percent A 0.2 % (0-0.5); Lymphocytes Absolute Auto 4.03 K/mm3 (0.9-3.2); Lymphocytes Percent Auto 39.9 % (18.3-44.2); Mean Corpuscular HGB Conc 35.7 g/dl (32-36); Mean Corpuscular Hemoglobin 31.7 pg (26-34); Mean Corpuscular Volume 88.8 fl (80-100); Mean Platelet Volume 9.5 fl (7.4-10.4); Monocytes Absolute Auto 0.8 K/mm3 (0.1-0.6); Neutrophils Absolute Auto 4.8 K/mm3 (1.3-6.7); Neutrophils Percent Auto 47.6 % (45.5-73.1); Platelet Count Result 250 k/mm3 (150-375); Red Cell Distribution Width 12.7 % (11.5-14.5); White Blood Count 10.1 K/mm3 (4.5-10.0)
[2024-06-16] MEDS: LORazepam INJ (*CRX) 2 MG/ML VIAL 1 MG IV PUSH (02:23)
[2024-06-16 02:28] LABS: Alanine Aminotransferase 14 U/L (6-35); Albumin Level 4.8 g/dL (3.5-5.1); Alkaline Phosphatase 57 U/L (38-126); Anion Gap 13 mmol/L (4-12); Aspartate Amino Transferase 22 U/L (14-36); Bilirubin,Total 1.4 mg/dL (0.2-1.3); Blood Urea Nitrogen 12 mg/dL (7-17); Calcium 9.8 mg/dL (8.4-10.2); Carbon Dioxide 21 mmol/L (22-30); Chloride 103 mmol/L (98-107); Estimated CRCL calculation 60 ml/min; Estimated Glomerular Filt Rate > 60; Glucose 109 mg/dL (65-110); Potassium 3.3 mmol/L (3.4-5.0); Sodium 137 mmol/L (137-145)
--- NOTE | 2024-06-16 02:33 | ED.GENADULT ---
HPI - General Adult General Chief complaint: Anxiety Stated complaint: anxiety Time Seen by Provider: 06/16/24 02:10 History of Present Illness HPI narrative: patient 54-year-old female who presents emergency department with chief complaint of anxiety. The patient reports that she had a TIA on the of last month the patient reports that she went to sleep around 9:00 p.m. and then woke up around 1 hour prior to arrival the patient states that she felt dizzy felt very anxious started breathing fast and then her hands started cramping up on her patient states both of her hands did this patient reports she has tingling over her body Related Data Home Medications Medication Instructions Recorded Confirmed viloxazine 200 mg capsule,extended 200 mg PO DAILY 11/01/22 11/01/22 release 24 hr (Qelbree) ezetimibe 10 mg tablet 10 mg PO DAILY 05/27/24 Allergies Allergy/AdvReac Type Severity Reaction Status Date / Time niacin Allergy Loss of Verified 06/16/24 02:08 Consciousness penicillin V Allergy Difficulty Verified 06/16/24 02:08 Breathing Review of Systems Review of Systems: A 10 system review of systems was completed on the patient and is negative except for what is stated in the HPI. Nursing and ancillary documentation was reviewed. [facility] Past Medical History Medical History Anxiety Asthma Depression GERD (gastroesophageal reflux disease) History of CVA (cerebrovascular accident) seen on CT Social History Social History Smoking status: Never smoker Alcohol intake: current Alcohol use details: once a week Substance use: never Substance use type: does not use Living arrangements: alone Spiritual care concerns: No Exam Narrative: GENERAL: Well-appearing, well-nourished, and in no acute distress. HEAD: Normocephalic, atraumatic. EYES: PERRLA and EOMI. ENT: Nares clear, no rhinorrhea or epistaxis. Mucous membranes moist. NECK: Supple. CHEST: Clear to auscultation. No respiratory distress. HEART: Regular rate and rhythm. No murmur heard. Normal peripheral pulses. ABDOMEN: Soft, nontender, nondistended, normal active bowel sounds. EXTREMITIES: Normal range of motion. No edema. SKIN: Warm, dry, no rash. NEURO: No focal deficits. Alert and oriented x3. PSYCH: Normal mood and affect. Course Vital Signs Vital signs: Vital Signs Pulse Rate 118 H 06/16/24 02:02 Respiratory Rate 23 H 06/16/24 02:02 Pulse Oximetry 98 06/16/24 02:02 Oxygen Delivery Room Air 06/16/24 02:02 Pulse Rate 118 H 06/16/24 02:02 Respiratory Rate 23 H 06/16/24 02:02 Pulse Oximetry 98 06/16/24 02:02 Oxygen Delivery Room Air 06/16/24 02:02 Medical Decision Making MDM Narrative Medical decision making narrative: differential diagnosis includes hyperventilation, anxiety, electrolyte abnormality, pneumonia patient was showing signs of acute hyperventilation the patient was allowed to slow down her breathing and was treated with anxiolysis the patient has cramping in her hands resided in the patient is now resting comfortably laboratory studies were obtained showed a normal CBC CMP showed a potassium of 3.3 bilirubin was 1.4 he was previously 1.3 chest x-ray showed no focal infiltrate EKG showed sinus rhythm rate of [address] elevation or ST depression Vital Signs Vital Signs: Vital Signs Pulse Rate 118 H 06/16/24 02:02 Respiratory Rate 23 H 06/16/24 02:02 Pulse Oximetry 98 06/16/24 02:02 Oxygen Delivery Room Air 06/16/24 02:02 Pulse Rate 118 H 06/16/24 02:02 Respiratory Rate 23 H 06/16/24 02:02 Pulse Oximetry 98 06/16/24 02:02 Oxygen Delivery Room Air 06/16/24 02:02 Lab Data 06/16/24 02:10 06/16/24 02:10 Labs: Lab Results 06/16/24 Range/Units 02:10 WBC
--- NOTE | 2024-06-16 02:54 | PC.NURSE ---
pt returned from ct via stretcher at this time. Pt resting comfortably on stretcher.
[2024-06-16 04:42] VITALS: BP 134/90; PULSE 86; RESP 15; O2SAT 100
== END 2024-06-16 04:43 | disposition home or self-care (01) ==
PROVIDERS: Emergency Provider Emergency Medicine; PCP Internal Medicine
DX: F41.9 Anxiety disorder, unspecified (principal); J45.909 Unspecified asthma, uncomplicated; F32.A Depression, unspecified; K21.9 Gastro-esophageal reflux disease without esophagitis; Z86.73 Personal history of transient ischemic attack (TIA), and cerebral infarction without residual deficits
CPT/HCPCS: 36415; 71046; 80053; 85025; 93005; 96374; 99284; J2060

== ENCOUNTER 2024-10-01 16:00 | Outpatient (RCR) | payer OTHER, SELFPAY ==
--- NOTE | 2024-09-04 10:27 | OPREHPOC ---
Outpatient Therapy Plan of Care This is a Multidisciplinary Plan of Care that may contain components documented by all disciplines (PT, OT, and ST.) PT Problem 1 PT Problem #1 Knowledge Deficit PT Goal 1 Goal / Goal Update 1. Patient will perform independent HEP 2. Patient will verbalize urge suppression strategies Target Visit 3 PT Problem 2 PT Problem #2 Pain PT Goal 1 Goal / Goal Update 1. Pain with BM no higher than 3/10 Target Visit 4 PT Problem 3 PT Problem #3 Impaired Strength PT Goal 1 Goal / Goal Update 1. Hip abduction 4/5 sonya Target Visit 4 PT Problem 4 PT Problem #4 Impaired Functional ADLs PT Goal 1 Goal / Goal Update 1. Urinary incontinence no more than 1 time a month 2. Fecal incontinence no more than 1 time a month 3. Patient will report no limitations with daily tasks due to prolapse Target Visit 4
--- NOTE | 2024-09-04 10:27 | PTOPEVAL1 ---
Assessment and note entered by Libby Burgess DPT Evaluation Information Assessment Status Evaluation Diagnosis k62.3 ICD-10 Condition Codes (PT) Weakness R53.1,Stress incontinence N39.3 Subjective Information Pt reports she has been diagnosed with a rectal prolapse and has to push it back up after using the restroom. Has been noticing it for at least 10 years and slowly worsening. Reports feeling an annoyance and has pain at times. Difficulty wiping with toilet paper. Highest pain 8/10 and lowest 0 /10. Voids 4-8 times a day and sometimes once at night. Can hold urge 5-10 minutes. Recently noticing urinary incontinence daily (also has had bronchitis and coughing a lot). Denies pain with urination. BM varies, anywhere from 1-2 times a day to 3-4 days in between. Pt does use a squatty potty and does not sit on the toilet more than 5 minutes. Fecal incontinence less often than 1 time a month and has to change clothes. Uses 2 pads a day due to incontinence. Pt has been 4 times, 1 vaginal delivery with long labor and tearing. 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 Mild colitis and diverticulitis. Patient goal: reduce the prolapse Return to MD not scheduled. Reported Pain Level Pain Score 0: Self Report Assessment PT Clinical Summary The patient is presenting to skilled therapy with diagnosis of rectal prolapse. She also reports urinary and fecal incontinence as well as urinary urgency. She presents with decreased hip and core strength, and likely decreased pelvic floor strength/endurance (will fully assess next time per patient request). These impairments are contributing to her pain and incontinence and difficulty with normal activities. She will benefit from skilled therapy to reduce pain, incontinence, and fully function without limitation. Plan of Care Interventions Electrical Stimulation,Hot Pack/Cold Pack,Manual Therapy,Neuro Re-education,Patient/Caregiver Education,Therapeutic Activities,Therapeutic Exercise PT Services Indicated Yes Treatment Frequency and 1 time a week for 4 visits Duration These treatments will address the objective and functional deficits as defined above. The patient will be advanced safely and appropriately in order for the patient to progress towards his/her prior level of function. Additional exercises will be introduced and as well as a comprehensive home exercise program upon discharge, if needed, ?to ensure carryover of functional gains achieved in the clinic. This treatment plan has been reviewed and agreement upon by the patient.
--- NOTE | 2024-10-01 16:34 | OPREHPOC ---
Outpatient Therapy Plan of Care This is a Multidisciplinary Plan of Care that may contain components documented by all disciplines (PT, OT, and ST.) PT Problem 1 PT Problem #1 Knowledge Deficit PT Goal 1 Goal / Goal Update 1. Patient will perform independent HEP 2. Patient will verbalize urge suppression strategies Target Visit 3 Progress Partially Met PT Problem 2 PT Problem #2 Pain PT Goal 1 Goal / Goal Update 1. Pain with BM no higher than 3/10 Target Visit 4 Progress Met PT Problem 3 PT Problem #3 Impaired Strength PT Goal 1 Goal / Goal Update 1. Hip abduction 4/5 sonya Target Visit 4 Progress Met PT Problem 4 PT Problem #4 Impaired Functional ADLs PT Goal 1 Goal / Goal Update 1. Urinary incontinence no more than 1 time a month 2. Fecal incontinence no more than 1 time a month 3. Patient will report no limitations with daily tasks due to prolapse Target Visit 4 Progress Partially Met
--- NOTE | 2024-10-01 16:34 | PTOPDC ---
Assessment and note entered by Libby Burgess DPT Evaluation Information Assessment Status Discharge Diagnosis k62.3 ICD-10 Condition Codes (PT) Weakness R53.1,Stress incontinence N39.3 Subjective Information Pt has not noticed the prolapse or had any pain over the past few weeks. Can hold urge to void a short amount of time. Urinary incontinence a couple times this week, not daily and is a small amount. Pt reports she feels confident with independent HEP at this time. Reported Pain Level Pain Score 0: Self Report Assessment PT Clinical Summary The patient has made excellent progress and reports no pain or symptoms of prolapse since starting therapy. Also reports decreased frequency of incontinence. She does continue to have urinary urgency and educated on urge suppression strategies this visit. Due to her progress, discharge to independent [facility] is recommended at this time. Plan of Care PT Services Indicated No
== END 2024-10-01 17:30 | disposition home or self-care (01) ==
LOC: ANHPT 16:00
PROVIDERS: PCP Internal Medicine; Visit Provider Nurse Practitioner
DX: K62.3 Rectal prolapse (principal)
CPT/HCPCS: 97112; 97140; 97161; 97530

== ENCOUNTER 2024-10-08 16:42 | Emergency (ER) | payer OTHER, SELFPAY ==
[2024-10-08] VITALS (13 sets, daily range): BP systolic 126–156; BP diastolic 82–106; PULSE 67–88; RESP 15–28; TEMP 36.6; O2SAT 99–100
--- NOTE | ~2024-10-08 | CT_ITS ---
EXAMINATION: CT brain wo con DATE: 10/08/2024 17:36 INDICATION: right arm weakness, resolved . TECHNIQUE: Computed tomography (CT) of the head was performed without intravenous contrast. The mA wa s adjusted according to patient size. Iterative reconstruction technique was employed. The dose-lengt h product was 605.33 mGy-cm. COMPARISON: 06/05/2024. FINDINGS: No acute intracranial hemorrhage or extra-axial fluid collection. No hydrocephalus, mass, or herniation. No acute ischemic infarct. Unremarkable dural venous sinus attenuation. No acute osseous abnormality. The aerated spaces are clear. IMPRESSION: No acute intracranial process. Reviewed, dictated and finalized at location K. CTOR LEARNING
--- NOTE | ~2024-10-08 | CT_ITS ---
EXAMINATION: CTA BRAIN/CAROTID DATE: 10/09/2024 00:51 INDICATION: Transient ischemic episode TECHNIQUE: Computed tomographic angiography (CTA) of the head and neck was performed with 100 mL Omni paque-350 intravenous contrast. Multiplanar reconstructions and maximum intensity projection 3D-recon structions of the carotid arteries and of the intracranial arteries were created by the technologist on a separate workstation. Automated exposure control and iterative reconstruction technique were emp loyed.The dose-length product was 977.61 mGy-cm. COMPARISON: None. FINDINGS: Carotid arteries: Visualized aortic arch is normal in caliber with no dissection. There is no evident atherosclerotic p laque with 0% stenosis of the right carotid bulb relative to normal distal artery lumen diameter (DIAMOND CET criteria). There is small amount of atherosclerotic plaque with 0% stenosis of the left carotid b ulb relative to normal distal artery lumen diameter. Visualized apices of the lungs are clear. Cervic al soft tissues are unremarkable. Mild to moderate cervical spondylosis. Intracranial arteries Vertebral arteries are codominant. Minimal nonhemodynamically significant atherosclerotic plaque at t he right carotid siphon. There is no hemodynamically significant stenosis in the vertebral, basilar a nd internal carotid arteries. There are no aneurysms identified. The left A1 and P1 segments are hoffman nt. The right anterior cerebral artery is supplied via a left internal carotid artery and a patent an terior communicating artery. The right posterior cerebral artery supplied via the right internal ramos tid artery and a patent right posterior communicating artery. Cerebral arterial arborization appears symmetric. No abnormally enhancing brain lesions identified. IMPRESSION: 1. 0% stenosis of the right and left carotid bulbs relative to normal distal artery lumen diameter (N ASCET criteria). 2. No cerebral arterial aneurysm, thrombosis or hemodynamically significant stenosis. 3. Normal anatomic variant [place] with the left anterior cerebral artery circulation chowdhury pplied via the left internal carotid artery in the right posterior cerebral artery circulation suppli ed via the right internal carotid artery via patent anterior communicating and right posterior commun icating arteries respectively. Reviewed, dictated and finalized at location B. TAPER MACHINE IMPRESSION: 1. 0% stenosis of the right and left carotid bulbs relative to normal distal ar fanny lumen diameter (NASCET criteria). 2. No cerebral arterial aneurysm, thrombosis or hemodynamically significant everardo nosis. 3. Normal anatomic variant [place] with the left anterior cerebral artery circulation supplied via the left internal carotid artery in the right posterior cerebral artery circulation supplied via the right internal carotid a rtery via patent anterior communicating and right posterior communicating arter ies respectively.
--- NOTE | ~2024-10-08 | XR_ITS ---
EXAMINATION: XR chest 1V DATE: 10/08/2024 17:44 INDICATION: Right arm weakness. TECHNIQUE: A single frontal view of the chest was obtained. COMPARISON: Chest 2 views 06/16/2024 FINDINGS: There is no pneumonia, pleural effusion, or pneumothorax. The heart size is normal. IMPRESSION: 1. No acute cardiopulmonary disease. Reviewed, dictated and finalized at location A. Y GLAZER
--- NOTE | 2024-10-08 17:01 | ED_ITS ---
HPI - Neuro Symptoms/Deficit General Chief Complaint: Neuro Symptoms/Deficit <Divine Spain PA-C - Last Filed: 10/09/24 17:38> Stated Complaint: suspected TIA yesterday <Divine Spain PA-C - Last Filed: 10/09/24 17:38> Time Seen by Provider: 10/08/24 17:01 <Divine Spain PA-C - Last Filed: 10/09/24 17:38> Focused HPI: This is a 54 year old female that presents to the ER for symptoms that happened yesterday. Reports yesterday while she was driving. Reports she started to feel like she couldn't move her head. She was having difficulty opening her mouth. She has weakness in the right arm. This lasted for about 40 minutes. Reports history of TIA and was concerned she had another one. She takes a baby aspirin daily. Denies any current symptoms. GENERAL: Well-appearing, well-nourished, and in no acute distress. HEAD: Normocephalic, atraumatic. CHEST: Clear to auscultation. ?No respiratory distress. HEART: Regular rate and rhythm.? NEURO: ?Alert and oriented x3. Patient screened in triage and initial orders placed.? ?Additional care and disposition to be based upon?diagnostic testing and treatment. <Divine Spain PA-C - Last Filed: 10/09/24 17:38> History of Present Illness HPI Narrative: Right hand dominant Patient presents with neurological symptoms yesterday, concern for TIA. Reports a history of 2 TIAs (06/05/24 and 09/23/24) and high cholesterol. Had an appointment with a neurologist Dr Montes's office, saw Rica (through [facility]) yesterday. As she was driving home, she reports difficulty opening her jaw due to it being clenched. She also had difficulty moving her head. Her right arm was initially gripping the steering wheel tightly and then after she pulled the hand off the steering wheel she felt like it was difficult to control it since it didn't move to the right place when she tried to brush the hair away from her face with this extremity. She felt like she had trouble looking to the right and also difficulty with peripheral vision but didn't try to look to the left or assess each eye individually. She believes the episode lasted approximately 40 (less than 60) minutes. Takes aspirin daily. Symptoms resolved and have not recurred although she states today her brain didn't feel right, foggy. No history of hypertension. No taste changes. History of gestational diabetes but no lingering DM since. Has high cholesterol. 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 She did not assess her speech during this episode. PCP is Dr Barone. <Dianna Cabrera MD - Last Filed: 10/09/24 18:29> Related Data Home Medications: Home Medications ?Medication ?Instructions ?Recorded ?Confirmed ?Last Taken ?Type viloxazine 200 mg capsule,extended 200 mg PO DAILY 11/01/22 11/01/22 Unknown History release 24 hr (Qelbree) ezetimibe 10 mg tablet 10 mg PO DAILY 05/27/24 Unknown History <Divine Spain PA-C - Last Filed: 10/09/24 17:38> Allergies/Adverse Reactions: Allergies Allergy/AdvReac Type Severity Reaction Status Date / Time niacin Allergy Loss of Verified 10/08/24 16:43 Consciousness penicillin V Allergy Difficulty Verified 10/08/24 16:43 Breathing Hzfmscy-[id number] Reductase AdvReac Mild Headache Verified 10/08/24 16:43 Inhibitor <Divine Spain PA-C - Last Filed: 10/09/24 17:38> Review of Systems 2 Review of Systems: All systems reviewed & are unremarkable except as noted in HPI and below <Divine Spain PA-C - Last Filed: 10/09/24 17:38> [facility] Past Medical History Medical History: Medical History (Updated 10/09/24 @ 18:09 by Dianna Cabrera MD) Right hand dominant Gestational diabetes Hyperlipidemia History of CVA (cerebrovascular accident) seen on CT Depression Anxiety GERD (gastroesophageal reflux disease) Asthma <Divine Spain PA-C - Last Filed: 10/09/24 17:38> Social History Social History: Social History Smoking status: Never smoker Alcohol intake: current Alcohol use details: once a week Substance use: never Substance use type: does not use Living arrangements: alone Spiritual care concerns: No <Divine Spain PA-C - Last Filed: 10/09/24 17:38> Exam 2 Narrative: GENERAL: Well-appearing, well-nourished, and in no acute distress. HEAD: Normocephalic, atraumatic. EYES: Non injected, non icteric. EOMI. Visual vega intact. ENT: Nares clear, no rhinorrhea or epistaxis. NECK: Supple. CHEST: Speaking in full sentences. No respiratory distress. HEART: Regular rate and rhythm. . ABDOMEN: Soft, nondistended. EXTREMITIES: Normal range of motion. No lower extremity edema. SKIN: Warm, dry, no rash. NEURO: No focal deficits. Alert and oriented x3.Answers questions appropriately, follows commands appropriately. No facial palsy; facial muscles engage symmetrically in distribution x3 (smile w/o loss of nasolabial fold, furrows brows, closes eyes tightly). No motor drift x4. No ataxia. Sensation intact throughout. No extinction. Speaks clearly w/o aphasia or dysarthria. No abnormal movements appreciated. PSYCH: Normal mood and affect. <Dianna Cabrera MD - Last Filed: 10/09/24 18:29> Course Vital Signs Vital signs: Vital Signs Temperature 97.9 F 10/08/24 16:47 Pulse Rate 83 10/08/24 16:47 Respiratory Rate 16 10/08/24 16:47 Blood Pressure 152/89 H 10/08/24 16:47 Pulse Oximetry 99 10/08/24 16:47 Temperature 97.9 F 10/08/24 16:47 Pulse Rate 82 10/09/24 03:04 Respiratory Rate 15 10/09/24 03:04 Blood Pressure 150/93 H 10/09/24 03:04 Pulse Oximetry 100 10/09/24 03:04 <Divine Spain PA-C - Last Filed: 10/09/24 17:38> Vital Signs Temperature 97.9 F 10/08/24 16:47 Pulse Rate 83 10/08/24 16:47 Respiratory Rate 16 10/08/24 16:47 Blood Pressure 152/89 H 10/08/24 16:47 Pulse Oximetry 99 10/08/24 16:47 Temperature 97.9 F 10/08/24 16:47 Pulse Rate 82 10/09/24 03:04 Respiratory Rate 15 10/09/24 03:04 Blood Pressure 150/93 H 10/09/24 03:04 Pulse Oximetry 100 10/09/24 03:04 <Dianna Cabrera MD - Last Filed: 10/09/24 18:29> MDM - Neuro Symptoms/Deficit MDM Narrative Medical decision making narrative: This is a right hand dominant 54 year old female w/ PMH CVA (per EMR) vs TIA x2 (per patient - in 06/05/24 and 09/23/24) who presents to the emergency department with concern for possible stroke versus TIA that occurred yesterday and lasted approxiamtely 40+ minutes (<60min). She had difficulty opening her mouth due to clenched jaw. She also had difficulty turning her head. She felt her peripheral vision was altered and she had difficulty looking to the right. She also noticed that her right hand was clenching the steering wheel tightly. When she was able to release it, she had trouble controlling it as it didn't move to its intended target of brushing hair off her face. The patient is protecting their airway which is patent. An IV is established by nursing staff blood work sent to the lab for evaluation. An EKG will be performed. Patient's unilateral right upper extremity symptoms don't sound to be weakness. Rather, it seems that there was brief increase tone and this clenching might have caused the change in use. In the emergency department she is afebrile with vital signs notable for hypertension. NIHSS was evaluated per below. The patient was transported to CT scan. Not stroke protocol given symptoms yesterday. NIHSS Level Of consciousness: 0 Month and age: 0 Follows commands: 0 Gaze palsy: 0 Visual vega: 0 Facial palsy: 0 Left arm motor drift: 0 Right arm motor drift: 0 Left leg motor drift: 0 Right leg motor drift: 0 Limb ataxia:0 Sensation:0 Aphasia:0 Dysarthria:0 Extinction:0 Total: 0 CT non con is negative. Patient has comorbidities that complexity management. Namely, history of TIA versus CVA. Labs show mild hypokalemia. Will replete and obtain magnesium level (lab). test negative. If this did represent neurologic deficits, the Improved neuro exam more consistent with TIA (cerebral thrombus/embolus without infarct), although again, it is unclear if this was the case.. ABCD2 Risk Score Age greater than or equal to 60 = 0 SBP greater than or equal to140 or greater than or equal to DBP 90 Yes +1 Speech impairment without weakness : No Unilateral weakness w or w/o speech impairment : No Other symptoms: 0 TIA duration 10-59 min +1 Diabetes 0 Total Score: 2 points - low risk; Per the validation study, 0-3 points confers a 2-day stroke risk of 1.0% and a 7-day stroke risk of 1.2% and a 90-day stroke risk of 3.1%. Discussed with patient that we would obtain CTA and, given otherwise low risk, reasonable to pursue work up in the outpatient setting. No evidence of stenosis on CTA. Shared decision making with patent who is in agreement. Given patient is outside of thrombolytics, will initiate aspirin. She does list an allergy to statins but is otherwise on a medication for cholesterol already. Discharged in stable condition and advised to follow up with PCP and /or neurologist. <Dianna Cabrera MD - Last Filed: 10/09/24 18:29> Differential Diagnosis Differential diagnosis: Likely carpal tunnel syndrome, peripheral neuropathy, cerebrovascular accident, multiple sclerosis, transient cerebral ischemia and other (overuse) < Dianna Cabrera MD - Last Filed: 10/09/24 18:29> Lab Data Attestation: I reviewed the patient's lab results. <Dianna Cabrera MD - Last Filed: 10/09/24 18:29> Lab results narrative: Troponin normal. Cbc unremarkable <Dianna Cabrera MD - Last Filed: 10/09/24 18:29> Result diagrams: 10/08/24 17:14 10/08/24 17:14 <Divine Spain PA-C - Last Filed: 10/09/24 17:38> Labs: Lab Results 10/08/24 10/09/24 10/09/24 Range/Units 17:14 00:16 00:17 WBC 8.4 (4.5-10.0) K/mm3 RBC 4.58 (4.2-5.4) M/mm3 Hgb 13.9 (12.0-15.0) g/dL Hct 41.2 (37.0-47.0) % MCV 90.0 (80-100) fl MCH 30.3 (26-34) pg MCHC 33.7 (32-36) g/dl RDW 12.9 (11.5-14.5) % Plt Count 178 (150-375) k/mm3 MPV 9.9 (7.4-10.4) fl Immature Gran % (Auto) 0.5 (0-0.5) % Neut % (Auto) 62.0 (45.5-73.1) % Lymph % (Auto) 28.3 (18.3-44.2) % [place] % (Auto) 6.3 (2.6-8.5) % Eos % (Auto) 2.3 (0-4.4) % Baso % (Auto) 0.6 (0.2-1.2) % Lymph # (Auto) 2.36 (0.9-3.2) K/mm3 [place] # (Auto) 0.5 (0.1-0.6) K/mm3 Eos # (Auto) 0.2 (0-0.3) K/mm3 Baso # (Auto) 0.1 (0.0-0.1) K/mm3 Abs Immat Gran (auto) 0.04 H (0.00-0.031) K/mm3 Absolute Neuts (auto) 5.2 (1.3-6.7) K/mm3 Absolute Nucleated RBC 0.000 (0.0-0.012) K/mm3 Nucleated RBC % 0.0 (0.0-0.2) % PT 13.6 (11.1-14.7) Seconds INR 1.0 APTT 28.7 (22.3-36.8) Seconds Sodium 137 (137-145) mmol/L Potassium 3.2 L (3.4-5.0) mmol/L Chloride 100 (98-107) mmol/L Carbon Dioxide 25 (22-30) mmol/L Anion Gap 12 (4-12) mmol/L BUN 12 (7-17) mg/dL Creatinine 0.70 (0.7-1.0) mg/dL Estim Creat Clear Calc Not Reportable Estimated GFR > 60 (59 - ) Glucose 109 (65-110) mg/dL Calcium 9.7 (8.4-10.2) mg/dL Magnesium 2.0 (1.6-2.3) mg/dL Total Bilirubin 1.1 (0.2-1.3) mg/dL AST 20 (14-36) U/L ALT 17 (6-35) U/L Alkaline Phosphatase 65 (38-126) U/L Troponin I < 0.012 (0.000-0.034) ng/mL Total Protein 8.0 (6.3-8.2) g/dL Albumin 4.7 (3.5-5.1) g/dL Urine Color Yellow (Yellow) Urine Appearance Clear (Clear) Urine pH 5.5 (5.0-9.0) Ur Specific [place] 1.006 (1.001-1.035) Urine Protein Negative (Negative) mg/dL Urine Glucose (UA) Negative (Negative) mg/dL Urine Ketones Negative (Negative) mg/dL Ur Blood (Man) Negative (Negative) Urine Nitrate Negative (Negative) Urine Bilirubin Negative (Negative) Urine Urobilinogen 0.2 (<2.0) mg/dL Leukocyte Esterase Rfl Negative (Negative) LEONIE/UL Urine RBC 0-2 (0-2) /hpf Urine WBC 0-5 (0-3) /hpf Ur Squamous Epith Cells Moderate (Few) /hpf Urine Bacteria Rare /hpf Urine Casts 0-2 POC Urine HCG, Qual Negative (Negative) <Divine Spain PA-C - Last Filed: 10/09/24 17:38> Lab Results 10/08/24 10/09/24 10/09/24 Range/Units 17:14 00:16 00:17 WBC 8.4 (4.5-10.0) K/mm3 RBC 4.58 (4.2-5.4) M/mm3 Hgb 13.9 (12.0-15.0) g/dL Hct 41.2 (37.0-47.0) % MCV 90.0 (80-100) fl MCH 30.3 (26-34) pg MCHC 33.7 (32-36) g/dl RDW 12.9 (11.5-14.5) % Plt Count 178 (150-375) k/mm3 MPV 9.9 (7.4-10.4) fl Immature Gran % (Auto) 0.5 (0-0.5) % Neut % (Auto) 62.0 (45.5-73.1) % Lymph % (Auto) 28.3 (18.3-44.2) % [place] % (Auto) 6.3 (2.6-8.5) % Eos % (Auto) 2.3 (0-4.4) % Baso % (Auto) 0.6 (0.2-1.2) % Lymph # (Auto) 2.36 (0.9-3.2) K/mm3 [place] # (Auto) 0.5 (0.1-0.6) K/mm3 Eos # (Auto) 0.2 (0-0.3) K/mm3 Baso # (Auto) 0.1 (0.0-0.1) K/mm3 Abs Immat Gran (auto) 0.04 H (0.00-0.031) K/mm3 Absolute Neuts (auto) 5.2 (1.3-6.7) K/mm3 Absolute Nucleated RBC 0.000 (0.0-0.012) K/mm3 Nucleated RBC % 0.0 (0.0-0.2) % PT 13.6 (11.1-14.7) Seconds INR 1.0 APTT 28.7 (22.3-36.8) Seconds Sodium 137 (137-145) mmol/L Potassium 3.2 L (3.4-5.0) mmol/L Chloride 100 (98-107) mmol/L Carbon Dioxide 25 (22-30) mmol/L Anion Gap 12 (4-12) mmol/L BUN 12 (7-17) mg/dL Creatinine 0.70 (0.7-1.0) mg/dL Estim Creat Clear Calc Not Reportable Estimated GFR > 60 (59 - ) Glucose 109 (65-110) mg/dL Calcium 9.7 (8.4-10.2) mg/dL Magnesium 2.0 (1.6-2.3) mg/dL Total Bilirubin 1.1 (0.2-1.3) mg/dL AST 20 (14-36) U/L ALT 17 (6-35) U/L Alkaline Phosphatase 65 (38-126) U/L Troponin I < 0.012 (0.000-0.034) ng/mL Total Protein 8.0 (6.3-8.2) g/dL Albumin 4.7 (3.5-5.1) g/dL Urine Color Yellow (Yellow) Urine Appearance Clear (Clear) Urine pH 5.5 (5.0-9.0) Ur Specific [place] 1.006 (1.001-1.035) Urine Protein Negative (Negative) mg/dL Urine Glucose (UA) Negative (Negative) mg/dL Urine Ketones Negative (Negative) mg/dL Ur Blood (Man) Negative (Negative) Urine Nitrate Negative (Negative) Urine Bilirubin Negative (Negative) Urine Urobilinogen 0.2 (<2.0) mg/dL Leukocyte Esterase Rfl Negative (Negative) LEONIE/UL Urine RBC 0-2 (0-2) /hpf Urine WBC 0-5 (0-3) /hpf Ur Squamous Epith Cells Moderate (Few) /hpf Urine Bacteria Rare /hpf Urine Casts 0-2 POC Urine HCG, Qual Negative (Negative) <Dianna Cabrera MD - Last Filed: 10/09/24 18:29> Imaging Data Radiologist's impression: CTA Head Impression (Stat Rad): No acute occlusion, severe stenosis, or aneurysm. CTA neck impression (stat Rad): No significant stenosis or dissection. < Dianna Cabrera MD - Last Filed: 10/09/24 18:29> ECG Data EKG #1: Attestation: I personally reviewed and interpreted this ECG as follows: < Dianna Cabrera MD - Last Filed: 10/09/24 18:29> ECG completion date: 10/08/24 <Dianna Cabrera MD - Last Filed: 10/09/24 18:29> ECG completion time: 17:09 <Dianna Cabrera MD - Last Filed: 10/09/24 18:29> Interpretation: Sinus rhythm at a rate of 72 beats per minute. DC interval 134. QRS 78. QT/QTC 349/372. Good R-wave progression across the precordial leads. No T-wave inversions. Normal axis. Normal ECG. <Dianna Cabrera MD - Last Filed: 10/09/24 18:29> Critical Care Time Critical Care Time Critical Care Time: No <Divine Spain PA-C - Last Filed: 10/09/24 17:38> Discharge Plan Discharge Clinical Impression: Hypokalemia, Transient neurological symptoms <Divine Spain PA-C - Last Filed: 10/09/24 17:38> Patient Disposition: Home, Self-Care <Divine Spain PA-C - Last Filed: 10/09/24 17:38> Condition: Stable <Divine Spain PA-C - Last Filed: 10/09/24 17:38> Instructions: Antibiotic Form, Transient Ischemic Attack (ED), Hypokalemia (ED) <CRISTIAN Noriega Last Filed: 10/09/24 17:38> Additional Instructions: Other than the slightly low potassium which we supplemented, no marked lab abnormalities the rest of your workup was also without clear etiology for your symptoms including your CTA of the head and neck. Given you are otherwise low risk as we discussed, reasonable to pursue the rest of the work up for consideration of a TIA (transient ischemic attack) in the outpatient setting. Your Primary care provider and/or neurologist should be able to help you arrange this. Return to the emergency department if any new/worsens/recurring/unmanaged symptoms. Start taking a daily aspirin. Continue taking all of your other medications as prescribed. <Divine Spain PA-C - Last Filed: 10/09/24 17:38> Patient Language: Italian <Divine Spain PA-C - Last Filed: 10/09/24 17:38> Prescriptions: New aspirin 81 mg capsule 81 mg PO DAILY Qty: 30 0RF No Action ezetimibe 10 mg tablet 10 mg PO DAILY Qelbree 200 mg capsule,extended release 24hr 200 mg PO DAILY <CRISTIAN Noriega Last Filed: 10/09/24 17:38> Follow-up/Referrals: Dr Montes [Other] (Neurologist) Kraig,Gerard Mon MD [Primary Care Provider] - <Divine Spain PA-C - Last Filed: 10/09/24 17:38> Stand Alone Forms: Work/School Release IP <CRISTIAN Noriega Last Filed: 10/09/24 17:38> Time of Disposition: 02:12 <Divine Spain PA-C - Last Filed: 10/09/24 17:38> 02:12 <Dianna Cabrera MD - Last Filed: 10/09/24 18:29>
--- NOTE | 2024-10-08 17:03 | ECG_ITS ---
Test Date: 2024-10-08 17:09:35 Measurements Intervals Edison Rate: 72 P: 42 IN: 134 QRS: 57 QRSD: 78 T: 63 QT: 349 QTc: 382 Interpretive Statements SINUS RHYTHM Compared to ECG 06/16/2024 02:09:41 No significant changes Electronically Signed On 10-09-2024 14:16:15 TEST CENTER MANAGER by Ana Cristina Nava M.D.
[2024-10-08 17:31] LABS: Basophils Absolute Auto 0.1 K/mm3 (0.0-0.1); Basophils Percent Auto 0.6 % (0.2-1.2); Eosinophils Absolute Auto 0.2 K/mm3 (0-0.3); Eosinophils Percent Auto 2.3 % (0-4.4); Hematocrit 41.2 % (37.0-47.0); Hemoglobin 13.9 g/dL (12.0-15.0); Immature Granulocyte Absolute 0.04 K/mm3 (0.00-0.031); Immature Granulocyte Percent A 0.5 % (0-0.5); Lymphocytes Absolute Auto 2.36 K/mm3 (0.9-3.2); Lymphocytes Percent Auto 28.3 % (18.3-44.2); Mean Corpuscular HGB Conc 33.7 g/dl (32-36); Mean Corpuscular Hemoglobin 30.3 pg (26-34); Mean Platelet Volume 9.9 fl (7.4-10.4); Monocytes Absolute Auto 0.5 K/mm3 (0.1-0.6); Monocytes Percent Auto 6.3 % (2.6-8.5); Neutrophils Absolute Auto 5.2 K/mm3 (1.3-6.7); Platelet Count Result 178 k/mm3 (150-375); Red Blood Count 4.58 M/mm3 (4.2-5.4); Red Cell Distribution Width 12.9 % (11.5-14.5); White Blood Count 8.4 K/mm3 (4.5-10.0)
[2024-10-08 17:44] LABS: Alanine Aminotransferase 17 U/L (6-35); Albumin Level 4.7 g/dL (3.5-5.1); Alkaline Phosphatase 65 U/L (38-126); Anion Gap 12 mmol/L (4-12); Aspartate Amino Transferase 20 U/L (14-36); Bilirubin,Total 1.1 mg/dL (0.2-1.3); Blood Urea Nitrogen 12 mg/dL (7-17); Calcium 9.7 mg/dL (8.4-10.2); Carbon Dioxide 25 mmol/L (22-30); Chloride 100 mmol/L (98-107); Estimated Glomerular Filt Rate > 60; Glucose 109 mg/dL (65-110); Potassium 3.2 mmol/L (3.4-5.0); Sodium 137 mmol/L (137-145)
[2024-10-08 17:53] LABS: Prothrombin Time 13.6 Seconds (11.1-14.7)
[2024-10-08 17:54] LABS: Partial Thromboplastin Time 28.7 Seconds (22.3-36.8)
[2024-10-08 18:01] LABS: Troponin I < 0.012 ng/mL (0.000-0.034)
--- OUTSIDE RECORDS SUMMARY | 2024-10-08 22:18 | XMS_ITS | Encounter Summary ---
Author Organization [facility] Address [address] [place] [address] Phone Care Team Providers Care Baked Goods Stock Clerk Name Role Phone Gerard Cornell MD Unavailable [phone] Gerard Cornell MD Primary Care Provider [phone] Jay Jay Montes MD Unavailable [phone] Reason for Visit * Reason Comments Transient Ischemic Attack * Consult, Test & Initiate Treatment (Routine) - Closed Specialty Diagnoses / Procedures Referred By Contac t Referred To Contact Neurology Diagnoses Transient cerebral ischemic attack, unspecified Gerard Cornell MD Phone: tel: fax: [facility] - Neurology - [place] [address] [place] [address] Phone: tel: fax: Referral ID Status Reason Start Date Expiration Date Visits Re quested Visits Authorized [id number] Closed 1 1 Encounter Details Date Type Department Care Team (Late st Contact Info) Description 10/07/2024 10:00 AM CHANGE NUMBER OPERATOR Office Visit [facility] - Neurology - [place] [address] [place] [address] Rica Davidson, ADVERTISING LAYOUT WORKER, [address] [place] [address] Episodic migraine (Primary Dx); History of TIA (transient ischemic attack) Discharge Disposition: Discharged to home or Selfcare Social History Tobacco Use Types Packs/Day Years Used Date Smoking Tobacco: Former Cigarettes Q uit: 07/31/1994 Smokeless Tobacco: Never Tobacco Cessation:Counseling Given: Not Answered Alcohol Use Standard Drinks/Week Comments Not Currently 0 (1 standard drink = 0.6 oz pur e alcohol) Comments Unknown Sex and Gender Information Value Date Recorded Sex Assigned at Not on file Legal Sex Female 1:55 PM CHANGE NUMBER OPERATOR Gender Identity Not on file Sexual Orientation Not on file documented as of this encounter Last Filed Vital Signs Vital Sign Reading Time Taken Comments Blood Pressure 138/82 10/07/2024 9:56 AM CHANGE NUMBER OPERATOR Pulse 104 10/07/2024 9:56 AM CHANGE NUMBER OPERATOR Temperature 37.1 ??C (98.7 ??F) 10/07/2024 9:56 AM CS T Respiratory Rate 18 10/07/2024 9:56 AM CHANGE NUMBER OPERATOR Oxygen Saturation 100% 10/07/2024 9:56 AM CHANGE NUMBER OPERATOR Inhaled Oxygen Concentration - - Weight 62.1 kg (136 lb 12.8 oz) 10/07/2024 9:56 AM CHANGE NUMBER OPERATOR Height 160 cm (5' 3 ) 10/07/2024 9:56 AM CHANGE NUMBER OPERATOR Body Mass Index 24.23 10/07/2024 9:56 AM CHANGE NUMBER OPERATOR documented in this encounter Plan of Treatment Upcoming Encounters Date Type Department Care Team (Late st Contact Info) Description 01/06/2025 3:00 PM CDT Office Visit [facility] - Neurology - [place] [address] [place] [address] Rica Davidson APRN, [address] [place] [address] documented as of this encounter Visit Diagnoses Diagnosis Episodic migraine- Primary History of TIA (transient ischemic attack) Transient ischemic attack (TIA), and cerebral infarction without residual deficits documented in this encounter Care Teams Baked Goods Stock Clerk Relationship Specialty Start Date End Date Gerard Cornell MD PCP - General Internal Medicine 11/21/23 Gerard Cornell MD Internal Medicine 08/06/23 Jay Jay Montes MD [address] [place] [address] Consulting Physician Neurology 11/21/23 documented as of this encounter
--- OUTSIDE RECORDS SUMMARY | 2024-10-08 22:19 | XMS_ITS | Patient Health Record ---
Author Organization [facility] Address [address] [place] [address] Care Team Providers Care Roofing Superintendent Name Role Phone Gerard Cornell MD Primary Care Provider Unavail able Gisela Ambrosio Unavailable [phone] Migration, Provider Unavailable Unavailable Allergies Allergen (clinical drug ingredient) Drug/Non Drug Allergy documented on EMR Reaction Allergy Type Onset Date Status Substance with 2-nwnfjqu-0-methylgluta ryl-coenzyme A reductase inhibitor mechanism of action (substance) Statins Unknown Drug Allergy Active Reason For Referral No Information Medications Medication SIG (Take, Route, Frequency, Duration) Notes Start Date End Date Status Fenofibrate 145 MG Oral 11/20/2023 Unknown Ergocalciferol 1.25 MG (68861 UT) Oral 11/20/2023 Unknown Qelbree 200 MG 1 capsule Oral Once a day for 90 days Active Pantoprazole Sodium 40 MG Oral 11/20/2023 Unknown Symbicort 80-4.5 MCG/ACT Inhalation 11/20/2023 Unknown lamoTRIgine 25 MG 1 tablet Oral once a day for 90 days Active SUMAtriptan Succinate 50 MG Oral 11/20/2023 Unknown hydrOXYzine HCl 10 MG 1 tablet Oral Once a day for 30 days As needed for anxiety 06/16/2024 Active ESTRADIOL-NORETHINDRON E ACETAT 0.5-0.1 mg Oral *[facility] and Interaction Alerts* 11/20/2023 Unknown Ezetimibe 10 MG Oral 11/20/2023 Unk nown Atorvastatin Calcium 20 MG Oral 11/20/2023 Unknown Immunizations Vaccine Route Administration Date Status Comme nts Pfizer Biontech Covid-19 Vac cine 2nd dose Unknown 03/18/2021 Administered Pfizer Biontech Covid-19 Vac cine 2nd dose Unknown 04/08/2021 Administered Social History Tobacco Use: Social History Observation Description Date Details (start date - stop date) Never Smoker NA - NA Sex Assigned At : Social History Observation Description Sex Assigned At Female Tobacco Control (Standard) Question Answer Notes Tobacco use: Nonsmoker AUDIT-C (Standard) Question Answer Notes Did you have a drink containing alcohol in the p ast year? Yes How often did you have six o r more drinks on one occasion in the past year? Never (0 point) Problems Problem Type SNOMED Code ICD Code Onset Dates Problem Status W/U Status Risk Notes Problem Depressed bipolar I disorder (95229175) Bipolar disorder, current episode depressed, mild or moderate severity, unspecified (F31.30) Active confirmed Problem Severe recurrent major depression without psychotic features (95810980) Major depressive disorder, recurrent severe without psychotic features (F33.2) Active confirmed Problem Generalized anxiety disorder (83416120) Generalized anxiety disorder (F41.1) Active confirmed Problem Posttraumatic stress disorder (38460949) Post-traumatic stress disorder, chronic (F43.12) Active confirmed Problem Attention deficit hyperactivity disorder, predominantly inattentive type (83648894) Attention-deficit hyperactivity disorder, predominantly inattentive type (F90.0) Active confirmed Problem Attention deficit hyperactivity disorder (046178751) ADHD (attention deficit hyperactivity disorder), combined type (F90.2) Active confirmed Vital Signs Height-cm 157.48 cm 11/20/2023 Height 62.00 in 11/20/2023 Encounters Encounter Location Date Provider Diagnosis [facility] [address] [facility] [address] [address] 11/20/2023 Gisela Daily Bipolar disorder, current episode depressed, mild or moderate severity, unspecified F31.30 ; Post-traumatic stress disorder, chronic F43.12 ; Attention-deficit hyperactivity disorder, predominantly inattentive type F90.0 and Generalized anxiety disorder F41.1 [facility] [address] [facility] [address] [address] 12/02/2023 Provider Migration Attention-deficit hyperactivity disorder, predominantly inattentive type F90.[address] [facility] [address] [facility] [address] [place] [address] 03/17/2024 Gisela Ambrosio Bipolar disorder, current episode depressed, mild or moderate severity, unspecified F31.30 ; Attention-deficit hyperactivity disorder, predominantly inattentive type F90.0 ; Generalized anxiety disorder F41.1 and Post-traumatic stress disorder, chronic F43.12 [facility], [facility] [address] [place] [address] 07/02/2024 Gisela Daily Bipolar disorder, current episode depressed, mild or moderate severity, unspecified F31.30 ; Attention-deficit hyperactivity disorder, predominantly inattentive type F90.0 ; Generalized anxiety disorder F41.1 and Post-traumatic stress disorder, chronic F43.12 [facility], [facility] [address] [place] [address] 09/24/2024 Gisela Ambrosio Bipolar disorder, current episode depressed, mild or moderate severity, unspecified F31.30 ; Attention-deficit hyperactivity disorder, predominantly inattentive type F90.0 ; Generalized anxiety disorder F41.1 and Post-traumatic stress disorder, chronic F43.12 [facility], [facility] [address] [place] [address] 12/02/2023 Provider Migration [facility], [facility] [address] [place] [address] 01/25/2024 Provider Migration [facility], [facility] [address] [place] [address] 01/26/2024 Provider Migration [facility], [facility] [address] [place] [address] 03/16/2024 Gisela Ambrosio [facility], [facility] [address] [place] [address] 03/17/2024 Gisela Ambrosio Major depressive disorder, recurrent severe without psychotic features F33.2 and Bipolar disorder, current episode depressed, mild or moderate severity, unspecified F31.30 [facility], [facility] [address] [place] [address] 03/19/2024 Gisela Ambrosio [facility], [facility] [address] [place] [address] 03/19/2024 Gisela Ambrosio [facility], [facility] [address] [place] [address] 03/19/2024 Gisela Daily [facility], [facility] [address] [facility] [address] [place] [address] 09/11/2024 Gisela Daily Attention-deficit hyperactivity disorder, predominantly inattentive type F90.0 [facility] [address] [place] [address] 03/17/2024 Gisela Daily Bipolar disorder, current episode depressed, mild or moderate severity, unspecified F31.30 [facility] [address] [facility] [address] [place] [address] 03/25/2024 Gisela Daily Attention-deficit hyperactivity disorder, predominantly inattentive type F90.0 and ADHD (attention deficit hyperactivity disorder), combined type F90.2 [facility] [address] [facility] [address] [place] [address] 06/15/2024 Gisela Daily Bipolar disorder, current episode depressed, mild or moderate severity, unspecified F31.30 and Attention-deficit hyperactivity disorder, predominantly inattentive type F90.0 [place] [address] [address] 06/16/2024 [place]by [place] Attention-deficit hyperactivity disorder, predominantly inattentive type F90.0 [facility] [address] [address] 06/16/2024 Gisela Daily [place] [address] [address] 06/16/2024 Gisela Daily [facility] [address] [address] 09/15/2024 Gisela Daily Attention-deficit hyperactivity disorder, predominantly inattentive type F90.0 Assessments Encounter Date Diagnosis (ICD Code) Assessment Notes Treatment Notes Treatment Clinical Notes Section Notes 03/17/2024 Bipolar disorder, current episode depressed, mild or moderate severity, unspecified (ICD-10 - F31.30) 03/17/2024 Attention-defici t hyperactivity disorder, predominantly inattentive type (ICD-10 - F90.0) 03/17/2024 Bipolar disorder, current episode depressed, mild or moderate severity, unspecified (ICD-10 - F31.30) 03/25/2024 Attention-defici t hyperactivity disorder, predominantly inattentive type (ICD-10 - F90.0) 06/15/2024 Bipolar disorder, current episode depressed, mild or moderate severity, unspecified (ICD-10 - F31.30) 06/16/2024 Attention-defici t hyperactivity disorder, predominantly inattentive type (ICD-10 - F90.0) 07/02/2024 Bipolar disorder, current episode depressed, mild or moderate severity, unspecified (ICD-10 - F31.30) Lamotrigine is an anticonvulsant and mood stabilizer used in psychiatry. Lamotrigine use is associated with benign rashes (incidence approximately 10%) and rare serious rashes that may require hospitalization and discontinuation of treatment, including Drew-Leroy syndrome and toxic epidermal necrolysis. Pt educated on importance of titration schedule and to take the medication only as prescribed. Pt educated that if they miss 5 or more consecutive doses then this medication will need to be re-titrated to reduce risk of rash. If any rash is noted, patient is instructed to stop taking this medication and call office. If rash is severe, they are to present immediately to the emergency room. 09/11/2024 Attention-defici t hyperactivity disorder, predominantly inattentive type (ICD-10 - F90.0) 09/15/2024 Attention-defici t hyperactivity disorder, predominantly inattentive type (ICD-10 - F90.0) 09/24/2024 Bipolar disorder, current episode depressed, mild or moderate severity, unspecified (ICD-10 - F31.30) Lamotrigine is an anticonvulsant and mood stabilizer used in psychiatry. Lamotrigine use is associated with benign rashes (incidence approximately 10%) and rare serious rashes that may require hospitalization and discontinuation of treatment, including Drew-Leroy syndrome and toxic epidermal necrolysis. Pt educated on importance of titration schedule and to take the medication only as prescribed. Pt educated that if they miss 5 or more consecutive doses then this medication will need to be re-titrated to reduce risk of rash. If any rash is noted, patient is instructed to stop taking this medication and call office. If rash is severe, they are to present immediately to the emergency room. 11/20/2023 Bipolar disorder, current episode depressed, mild or moderate severity, unspecified (ICD-10 - F31.30) 11/20/2023 Generalized anxiety disorder (ICD-10 - F41.1) 11/20/2023 Post-traumatic stress disorder, chronic (ICD-10 - F43.12) 11/20/2023 Attention-defici t hyperactivity disorder, predominantly inattentive type (ICD-10 - F90.0) 12/02/2023 Attention-defici t hyperactivity disorder, predominantly inattentive type (ICD-10 - F90.0) 06/15/2024 Attention-defici t hyperactivity disorder, predominantly inattentive type (ICD-10 - F90.0) 03/17/2024 Generalized anxiety disorder (ICD-10 - F41.1) 03/17/2024 Major depressive disorder, recurrent severe without psychotic features (ICD-10 - F33.2) Electronic Prior Authorization was requested for Vilazodone HCl 10 MG Tablet. Provider can order medication once approval received. 07/02/2024 Attention-defici t hyperactivity disorder, predominantly inattentive type (ICD-10 - F90.0) 09/24/2024 Attention-defici t hyperactivity disorder, predominantly inattentive type (ICD-10 - F90.0) 03/17/2024 Post-traumatic stress disorder, chronic (ICD-10 - F43.12) 03/17/2024 Bipolar disorder, current episode depressed, mild or moderate severity, unspecified (ICD-10 - F31.30) Electronic Prior Authorization was requested for Vilazodone HCl 10 MG Tablet. Provider can order medication once approval received. 03/25/2024 ADHD (attention deficit hyperactivity disorder), combined type (ICD-10 - F90.2) Electronic Prior Authorization was requested for Qelbree 200 MG Capsule Extended Release 24 Hour. Provider can order medication once approval received. 09/24/2024 Generalized anxiety disorder (ICD-10 - F41.1) 07/02/2024 Generalized anxiety disorder (ICD-10 - F41.1) 07/02/2024 Post-traumatic stress disorder, chronic (ICD-10 - F43.12) 09/24/2024 Post-traumatic stress disorder, chronic (ICD-10 - F43.12) 03/17/2024 Other Start vilazodone 10mg daily for mood. Decrease lamictal to 25mg daily, as increase seems to have triggered depression. Patient educated on all medications including potential benefits, side effects, risks. Educated on proper dosing schedule and importance of compliance. 07/02/2024 Other Stop vilazodone due to nausea Continue Qelbree, Lamictal. Patient educated on all medications including potential benefits, side effects, risks. Educated on proper dosing schedule and importance of compliance. 09/24/2024 Other Overall stable, cont current medications. Patient educated on all medications including potential benefits, side effects, risks. Educated on proper dosing schedule and importance of compliance. -Assessment and treatment plan reviewed with patient. -Compliance with treatment plan importance discussed. -Discussed the risks/benefits of this medication -Discussed medication side effects. -Contact office if symptoms worsen. -Discussed that it can take up to 6-8 weeks to see full therapeutic effects of psychotropic medications. -Crisis prevention hotline [id number]. Plan Of Treatment Next Appt Details Provider Name:Gisela Ambrosio, 12/15/2024 08:00:00 AM, [address], [address], [place], [address], Insurance Providers Payer Name Payer Address Payer Phone Subscriber Number Group Number Insured Name Patient Relationship to Insured Coverage Start Date Coverage End Date [facility] [address] [place] [phone] [id number] BUTCH SAINI Self - patient is the insured Medical (General) History Medical History History ICD Code Problems: Attention deficit hyperactivity disorder, predominantly inattentive type Bipolar affective disorder, current epis ode depression Cannabis dependence Chronic post-traumatic stress disorder Generalized anxiety disorder Reactive airway disease osteoporosis, fibromyalgia, scoliosis Jun [id number] TIA Surgical History Surgery Date(Month/Year) Other 09/09/1995 Other 06/09/19962023 christoph
--- OUTSIDE RECORDS SUMMARY | 2024-10-08 22:19 | XMS_ITS ---
Author Organization [facility] Address [address] [facility] [address] [facility] [address] [place] [address] Care Team Providers Care Dairy Manager Name Role Phone Gerard Cornell MD Primary Care Provider Unavail Gisela Perez Unavailable [phone] Medications Medication SIG (Take, Route, Fr equency, Duration) Notes Start Date End Date Status Qelbree 200 MG 1 capsule Oral Once a day for 90 days 11/20/2023 12/14/2024 Active Social History Sex Assigned At : Social History Observation Description Sex Assigned At Female Encounters Encounter Location Date Provider Diagnosis [facility] [address] [facility] [address] [facility] [address] [place] [address] 09/15/2024 Gisela Ambrosio Attention-deficit hyperactivity disorder, predominantly inattentive type F90.0 Assessments Encounter Date Diagnosis (ICD Code) Assessment Notes Treatment Notes Treatment Clinical Notes Section Notes 09/15/2024 Attention-deficit hyperactivity disorder, predominantly inattentive type (ICD-10 - F90.0) Plan Of Treatment Medication Medication Name Sig Start Date Stop Date Notes Qelbree 200 MG 1 capsule Oral Once a day for 90 days 11/1912/14/2024 Next Appt Details Provider Name:Gisela Ambrosio, 12/15/2024 08:00:00 AM, [address], [place], [address], Progress Notes * BUTCH ELLSWORTH LDOB:[birth year] (54 yo F)Acc No.[id number]:09/15/2024 Patient:?BUTCH ELLSWORTH :1970???Age:54 Y???Sex:Female Address:[facility] [address] [facility] [address] * Refills? Refill Qelbree Capsule Extended Release 24 Hour, 200 MG, Oral, 90, 1 capsule, Once a day, 90 days, Refills=0 * true * Date:? 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
--- OUTSIDE RECORDS SUMMARY | 2024-10-08 22:19 | XMS_ITS | Clinical Summary ---
Author Organization [facility] Address [address] [place] [address] Phone Care Team Providers Care Lingo Cleaner Name Role Phone Gerard Cornell MD Unavailable [phone] Gerard Cornell MD Primary Care Provider [phone] Jay Jay Montes MD Unavailable [phone] Allergies Active Allergy Reactions Criticality Noted Date Comments Rosuvastatin Unknown 08/07/2023 Blurry vision Medications busPIRone (BUSPAR) 5 MG Tablet Take 5 mg by mouth 3 times daily. Active Lumateperone Tosylate (Caplyta) 42 MG Capsule Take by mouth. Active cyclobenzaprine (FLEXERIL) 5 MG Tablet Take 5 mg by mouth 3 times daily. Active ezetimibe (ZETIA) 10 MG Tablet Take 10 mg by mouth daily. Active lamoTRIgine (LaMICtal) 25 MG Tablet Take 25 mg by mouth daily. Active Viloxazine HCl ER (Qelbree) 200 MG CAPSULE SR 24 HR Take by mouth. Active aspirin EC 81 MG Tablet Delayed ResponseIndicat ions:Transient Ischemic Attacks Take 81 mg by mouth daily. Indications: Temporary Stroke Active Ubrogepant (Ubrelvy) 50 MG TabletIndicatio ns:Episodic migraine Take 1 Tablet by mouth once as needed for Other (headache/mendel floresita) for up to 1 dose. 10 Tablet 2 5 Active SUMAtriptan (IMITREX) 50 MG Tablet Take 1 Tablet by mouth once as needed for Migraine. Use as directed. May repeat dose in 2 hours if headache recurs. 9 Tablet 3 4 10/07/19 25 Discontinu ed(Alterna te therapy) Encounters Date Type Department Care Team Description [facility]/08[facility] [address] [place] [address] Rica Davidson APRN, COMMERCIAL CREDIT PORTFOLIO MANAGER 10/07/2024 10:00 AM WASTE WATER PLANT OPERATOR [facility] [address] [place] [address] Rica Davidson, PRIMARY PRODUCTS INSPECTORS, COMMERCIAL CREDIT PORTFOLIO MANAGER Episodic migraine (Primary Dx); History of TIA (transient ischemic attack) Discharge Disposition: Discharged to home or Selfcare 10/07/2024 Travel from Last 3 Months Family History Medical History Relation Name Comments Colon Cancer Brother Chronic Obstructive Pulmonary Disease Father Chronic Obstructive Pulmonary Disease Mother Relation Name Status Comments Brother Alive Father Alive Mother Alive Social History Tobacco Use Types Packs/Day Years Used Date Smoking Tobacco: Former Cigarettes Q uit: 07/31/1994 Smokeless Tobacco: Never Tobacco Cessation:Counseling Given: Not Answered Alcohol Use Standard Drinks/Week Comments Not Currently 0 (1 standard drink = 0.6 oz pur e alcohol) Comments Unknown Sex and Gender Information Value Date Recorded Sex Assigned at Not on file Legal Sex Female 1:55 PM WASTE WATER PLANT OPERATOR Gender Identity Not on file Sexual Orientation Not on file Last Filed Vital Signs Vital Sign Reading Time Taken Comments Blood Pressure 138/82 10/07/2024 9:56 AM WASTE WATER PLANT OPERATOR Pulse 104 10/07/2024 9:56 AM WASTE WATER PLANT OPERATOR Temperature 37.1 ??C (98.7 ??F) 10/07/2024 9:56 AM CS T Respiratory Rate 18 10/07/2024 9:56 AM WASTE WATER PLANT OPERATOR Oxygen Saturation 100% 10/07/2024 9:56 AM WASTE WATER PLANT OPERATOR Inhaled Oxygen Concentration - - Weight 62.1 kg (136 lb 12.8 oz) 10/07/2024 9:56 AM WASTE WATER PLANT OPERATOR Height 160 cm (5' 3 ) 10/07/2024 9:56 AM WASTE WATER PLANT OPERATOR Body Mass Index 24.23 10/07/2024 9:56 AM WASTE WATER PLANT OPERATOR Plan of Treatment Upcoming Encounters Date Type Department Care Team (Late st Contact Info) Description 01/06/2025 3:00 PM CDT Office Visit [facility] - [place] [address] [place] [address] Rica Davidson, PRIMARY PRODUCTS INSPECTORS, COMMERCIAL CREDIT PORTFOLIO MANAGER [address] [place] [address] Health Maintenance Due Date Last Done Comments Hepatitis C Virus (HCV) Screening 1970 TdaP Immunization 1970 Hepatitis B Immunization (1 of 3 - 19+ 3-dose series) 1989 Pap Smear 1991 Cervical Cancer Screening (CCS) 2000 HPV/Cotest 2000 Colonoscopy 2015 Colorectal Cancer Screening 2015 Cologuard 2020 Immunochemical Fecal Occult Blood 2020 Mammogram 2020 Pneumococcal Immunization (5 0+ years) (1 of 1 - PCV) 2020 Zoster Immunization (1 of 2) 2020 Influenza Immunization (#1) 2024 SARS-COV-2 Immunization (3 - 2023- season) 2024 04/08/2021, 03/18/2021 Respiratory Syncytial Virus (RSV) Immunization (Adult) (1 - 1-dose 75+ series) 2045 Meningococcal Immunization (ACWY) Aged Out No longer eligible b ased on patient's age to complete this topic Rotavirus Immunization Aged Out No lo nger eligible based on patient's age to complete this topic Insurance [place] [id number] Care Teams Lingo Cleaner Relationship Specialty Start Date End Date Gerard Cornell MD PCP - General Internal Medicine 11/21/23 Gerard Cornell MD Internal Medicine 08/06/23 Jay Jay Montes MD [address] [place] [address] Consulting Physician Neurology 11/21/23
--- OUTSIDE RECORDS SUMMARY | 2024-10-08 22:19 | XMS_ITS | Data Portability ---
Author Organization [facility], Main Office Address [address] [place] [address] Assessment No assessment recorded. Plan of Treatment Reminders Order Date Submit Date Provider Last Modified By Organization Details Last Modified Time Details Appointments None recorded. Lab glycohemogl obin, total, blood [email or web address] [facility] (Lab), [address] [place], [address], 4 08:08:02 lipid panel, serum 20[email or web address] [facility] (Lab), [address] [place], [address], 4 08:08:02 CMP, serum or plasma [email or web address] (Lab), [address] [place], [address], 4 08:08:02 Referral neurologist referral 2022 023 [email or web address] Jay Jay Montes MD, [address], [place], [address], 3 08:01:08 gastroenter ologist referral 2023 024 [email or web address] Jordin Hernandez MD, [address], [facility] [address], [address], 4 08:58:43 neurologist referral - Please call patient to schedule. 2023 024 [email or web address] Jay Jay Montes MD, [address], [place], [address], 4 16:09:05 Procedures None recorded. Surgeries None recorded. Imaging US, duplex, carotid artery 2022 023 [email or web address] [facility], [address], [place], [address], 3 08:06:12 bone density [email or web address] [facility], [address], [place], [address], 4 08:00:04 Medication Orders Medrol (Javy) 4 mg tablets in a dose pack 2023 024 [facility] #[id number], [address] [facility], [place], [address], 4 11:50:07 ezetimibe 10 mg tablet 2023 024 [facility], [address] [place] [address], [address], 4 11:50:01 Patient TargetsNo targets recorded. Patient InstructionsNo instructions recorded. Reason for Referral Neurologist Referral for Diz ziness Referring Physician: Gerard Cornell, Internal Medicine, Encounter Date: 07/31/2023 Theology Professor Referral for Rectal discharge Referring Physician: Gerard Cornell Internal Medicine, Encounter Date: 04/27/2024 Neurologist Referral for Tra nsient cerebral ischemia Please call patient to schedule. Referring Physician: Gerard Cornell Internal Medicine, Encounter Date: 06/15/2024 Results Created Date Observation Date Name Description Value Unit Range Abnormal Flag Note LastModifiedBy Organization Detail LastModifiedTime 02/10/20 24 02/10/2024 LIPID PANEL cholesterol 215 mg/dL 140-19 9 high NIH GRICEL NSUS RECOM MENDA TION FOR GERI STERO L: ADULT CHILD LOW RISK: <200 <170 BORDE RLINE : <200- 239 ----- HIGH RISK: >240 >200 Not Available [facility] (Lab) [address] [place], [address], 02/10/2024 19:50:36 02/10/20 24 02/10/2024 LIPID PANEL triglyceride s 77 mg/dL 0-150 NIH GRICEL NSUS REPOR T RECOM MENDA TION FOR TRIGL YCERI AVINASH: ADULT CHILD LOW RISK: <150 ----- BODER LINE: 150-1 99 ----- HIGH RISK: >200 ----- Not Available [facility] (Lab) [address] [place], [address], 02/10/2024 19:50:36 02/10/20 24 02/10/2024 LIPID PANEL HDL cholesterol 72 mg/dL 40- Not Available [facility] (Lab) [address] [place], [address], 02/10/2024 19:50:36 02/10/20 24 02/10/2024 LIPID PANEL LDL cholesterol, calculated 128 mg/dL 0-130 NIH GRICEL NSUS REPOR T RECOM MENDA TIONS FOR LDL: ADULT CHILD LOW RISK <130 <110 (OPTI MAL LDL) <100 ----- BORDE RLINE : 130-1 59 ----- HIGH RISK: >160 >130 A TRIGL YCERI DE RESUL T >400 INVAL IDATE S THE CALCU LATIO N FOR LDL FRACT IONAT ION - THE LDL RESUL T WILL NOT BE REPOR TERESA. Not Available [facility] (Lab) [address] [place], [address], 02/10/2024 19:50:36 02/10/20 24 02/10/2024 COMPR EHENS JD METAB OLIC PANEL sodium 137 mmol/ L 137-14 5 Not Available [facility] (Lab) [address] [place], [address], 02/10/2024 19:50:41 02/10/20 24 02/10/2024 COMPR EHENS JD METAB OLIC PANEL potassium 4.1 mmol/ L 3.5-5. 1 Not Available [facility] (Lab) [address] [place], [address], 02/10/2024 19:50:41 02/10/20 24 02/10/2024 COMPR EHENS JD METAB OLIC PANEL chloride 105 mmol/ L 98-107 Not Available [facility] (Lab) [address] [place], [address], 02/10/2024 19:50:41 02/10/20 24 02/10/2024 COMPR EHENS JD METAB OLIC PANEL carbon dioxide 27 mmol/ L 22-30 Not Available [facility] (Lab) [address] [place], [address], 02/10/2024 19:50:41 02/10/20 24 02/10/2024 COMPR EHENS JD METAB OLIC PANEL anion gap 9.1 mmol/ L 14-22 low Not Available [facility] (Lab) [address] [place], [address], 02/10/2024 19:50:41 02/10/20 24 02/10/2024 COMPR EHENS JD METAB OLIC PANEL glucose 88 mg/dL 70-99 Not Available [facility] (Lab) [address] [place], [address], 02/10/2024 19:50:41 02/10/20 24 02/10/2024 COMPR EHENS JD METAB OLIC PANEL BUN 12 mg/dL 8-19 Not Available [facility] (Lab) [address] [place], [address], 02/10/2024 19:50:41 02/10/20 24 02/10/2024 COMPR EHENS JD METAB OLIC PANEL creatinine 0.76 mg/dL 0.66-1 .25 Not Available [facility] (Lab) [address] [place], [address], 02/10/2024 19:50:41 02/10/20 24 02/10/2024 COMPR EHENS JD METAB OLIC PANEL GFR >60 Refer ence Range : [place] ge GFR Healt hy Adult : >60 mL/mi n/1.7 3 m2 Chron ic Kidne y Disea se: 15-60 mL/mi n/1.7 3 m2 Kidne y Failu re: <15/m L/min /1.73 m2 www.n iddk. nih.g ov The MDRD study equat ion has not been valid ated in child berry <18 years of age; pregn ant women ; the elder ly >85 years of age; or in some racia l or ethni c subgr oups, such as Hisks nics. Outsi de the valid ated sonya eters , estim ated GFR is less accur ate, requi ring clini mervin judgm ent on a case- by-ca se basis . Clini mervin inter preta tion for other races and ages must be made by the clini yang. The MDRD study equat ion has not been valid ated for the evalu ation of serum creat inine relat ed to nutri kelby l statu s or medic ation usage . For perso ns <18 years of age, a pedia tric GFR calcu lator is avail able on the F websi te: https ://sosa w.kid dora.o rg/pr gerardess ional s/kdo qi/gf r_cal culat or Not Available [facility] (Lab) [address] [place], [address], 02/10/2024 19:50:41 02/10/20 24 02/10/2024 COMPR EHENS JD METAB OLIC PANEL alkaline phosphatase 54 U/L 38-126 Not Available [facility] (Lab) [address] [place], [address], 02/10/2024 19:50:41 02/10/20 24 02/10/2024 COMPR EHENS JD METAB OLIC PANEL alanine aminotransfe rase 15 U/L 0-35 Not Available [facility] (Lab) [address] [place], [address], 02/10/2024 19:50:41 02/10/20 24 02/10/2024 COMPR EHENS JD METAB OLIC PANEL aspartate aminotransfe rase 27 U/L 15-37 Not Available [facility] (Lab) [address] [place], [address], 02/10/2024 19:50:41 02/10/20 24 02/10/2024 COMPR EHENS JD METAB OLIC PANEL bilirubin, total 0.80 mg/dL 0.20-1 .30 Not Available [facility] (Lab) [address] [place], [address], 02/10/2024 19:50:41 02/10/20 24 02/10/2024 COMPR EHENS JD METAB OLIC PANEL calcium 9.3 mg/dL 8.4-10 .2 Not Available [facility] (Lab) [address] [place], [address], 02/10/2024 19:50:41 02/10/20 24 02/10/2024 COMPR EHENS JD METAB OLIC PANEL total protein 7.0 g/dL 6.3-8. 2 Not Available [facility] (Lab) [address] [place], [address], 02/10/2024 19:50:41 02/10/20 24 02/10/2024 COMPR EHENS JD METAB OLIC PANEL albumin 4.6 g/dL 3.4-5. 0 Not Available [facility] (Lab) [address] [place], [address], 02/10/2024 19:50:41 02/10/20 24 02/10/2024 COMPR EHENS JD METAB OLIC PANEL globulin 2.4 g/dL 2.6-4. 2 low Not Available [facility] (Lab) [address] [place], [address], 02/10/2024 19:50:41 02/10/20 24 02/10/2024 COMPR EHENS JD METAB OLIC PANEL A/G ratio 1.9 ratio 1.0-2. 0 Not Available [facility] (Lab) [address] [place], [address], 02/10/2024 19:50:41 02/10/20 24 02/10/2024 TSH thyroid-stim ulating hormone 1.920 uIU/m L 0.465- 4.680 Not Available [facility] (Lab) [address] [place], [address], 02/10/2024 20:30:19 02/10/20 24 02/10/2024 HEMOG LOBIN A1C HA1C 4.8 % 4.0-6. 0 Diabe hilda Scree ezekiel Crite frank: <5.7% Consi stent with absen ce of diabe hilda 5.7-6 .4% Consi stent with incre ased risk for diabe hilda (pred iabet es) >OR=6 .5% Consi stent with diabe hilda REFER ENCE: Diabe hilda Care 2016, 39(Shore ppl.1 ):s13 -s22 Not Available [facility] (Lab) [address] [place], [address], 02/10/2024 20:31:51 09/10/19 24 09/03/2023 US, shayy x, carissa id arter y No observ ation record ed. [email or web address] [facility] [address], [place], [address], 09/11/2023 11:59:18 08/19/01/22/2022 colon oscop y scree ezekiel (PROC ) No observ ation record ed. BARCODE Not Available 2023 18:47:02 05/05/20 24 05/02/2024 bone densi ty No observ ation record ed. [email or web address] [facility] [address], [place], [address], 05/07/2024 10:09:04 06/05/20 24 06/05/2024 XR, chest , 1 view No observ ation record ed. BARCODE Not Available 2023 18:09:21 06/16/20 24 06/16/2024 XR, chest , 2 view No observ ation record ed. BARCODE Not Available 2023 18:06:27 07/08/20 24 06/05/2024 MRI, brain , w/o contr ast No observ ation record ed. BARCODE Not Available 2023 15:32:30 Result Notes None recorded. Problems Name Problem SNOMED Code Status Onset Date Resolution Date Notes Provider Name and Address Organization Details Recorded Time Diarrheal disorder 517521358 Completed Not Available [facility] 3 07:30:26 Hearing loss 46435449 Active 2021 Not Available [facility] 3 07:30:26 Pain in throat 902589662 Completed Not Available [facility] 3 07:30:26 Psychogen ic dyspepsia 233728226 Active 2021 Not Available [facility] 3 07:30:26 Insomnia 812490146 Active Not Available [facility] 3 07:30:26 Asthma 298792845 Active Not Available [facility] 3 07:30:26 Microscop ic hematuria 673927005 Completed 202107/05/2022 Not Available [facility] 3 07:30:26 Fibromyal srinivas 335907172 Active 2020 Not Available [facility] 3 07:30:26 Lacunar infarctio n 445705435 Completed 202107/05/2022 Not Available [facility] 3 07:30:26 Gastroeso phageal reflux disease 398532341 Active Not Available [facility] 3 07:30:27 Fluid level behind tympanic membrane Completed Not Available [facility] 3 07:30:27 Long-term drug therapy Completed 202107/05/2022 Not Available [facility] 3 07:30:27 Adult health examinati on Active 2020 Not Available [facility] 3 07:30:27 Screening for malignant neoplasm of colon Completed 202007/05/2022 Not Available [facility] 3 07:30:27 Low back pain 726810711 Active 2021 Not Available [facility] 3 07:30:27 Foot joint pain 329775744 Completed Not Available [facility] 3 07:30:28 Hypertrig lyceridem ia 050856560 Active 2020 Not Available [facility] 3 07:30:28 Osteopeni a 195409387 Active 2022 Gerard Cornell MD [address] [place] [address], [address] , [facility] 4 08:42:47 Depressiv e disorder 48668741 Active Not Available [facility] 3 07:30:28 Sinusitis 96846545 Active Not Available [facility] 3 07:30:28 Arthritis of spine 990379389 Active 2020 Not Available [facility] 3 07:30:28 Disorder of function of stomach 656553263 Active 2021 Not Available [facility] 3 07:30:28 Attention deficit hyperacti vity disorder 749295099 Active 2021 Not Available [facility] 3 07:30:29 Mixed urinary incontine nce 186516906 Active 2021 Not Available [facility] 3 07:30:29 Chronic recurrent sinusitis 646195908 Completed Not Available [facility] 3 07:30:29 Asymmetri mervin sensorine ural hearing loss 077425542 Completed 202107/05/2022 Not Available [facility] 3 07:30:29 Infection of tick bite 152772624 Completed 202107/05/2022 Not Available [facility] 3 07:30:29 Bilateral tinnitus 36013862726 02 Active 2022 Not Available [facility] 3 07:30:29 Bilateral tinnitus 65497741241 02 Completed 202007/05/2022 Not Available [facility] 3 07:30:30 Anxiety 69412412 Active Not Available [facility] 3 07:30:30 Cough 04456646 Completed 202107/05/2022 Not Available [facility] 3 07:30:30 Compressi on fracture of thoracic vertebra 34611298619 04 Active 2022 Not Available [facility] 3 07:30:30 Compressi on fracture of thoracic vertebra 54653526063 04 Completed 202007/05/2022 Not Available [facility] 3 07:30:30 Cramp 38786073 Completed Not Available [facility] 3 07:30:31 Hyperlipi demia 95633148 Active Not Available [facility] 3 07:30:31 Dyspnea on exertion 37688960 Completed Not Available [facility] 3 07:30:31 Polyp of colon 12683329 Active 2021 Not Available [facility] 3 07:30:31 Rhinitis 80819195 Active Not Available [facility] 3 07:30:31 Cyst of kidney 496159220 Active 2021 Not Available [facility] 3 07:30:31 Posterior rhinorrhe a 69876267 Completed Not Available [facility] 3 07:30:32 Postmenop ausal state 33944182 Completed 202107/05/2022 Not Available [facility] 3 07:30:32 Overactiv e urinary bladder 315427762 Active 2021 Not Available [facility] 3 07:30:32 Palpitati ons 54016863 Completed Not Available [facility] 3 07:30:32 Fatigue 76292973 Completed Not Available [facility] 3 07:30:33 Internal hemorrhoi ds 66681917 Active 2021 Not Available [facility] 3 07:30:33 Bilateral hearing loss 16481588 Active 2020 Not Available [facility] 3 07:30:33 Vertigo 452622445 Active 2022 Gerard Cornell MD [address], [address], [place], [address] , [place] [facility] 3 16:52:05 Dizziness 918496213 Active 2022 Gerard Cornell MD [address], [address], [place], [address] , [place] [facility] 3 10:38:07 Pain of left knee joint 55958036600 4107 Active 2023 Gerard Cornell MD [address], [address], [place], [address] , [place] [facility] 4 09:34:42 Rectal discharge 008219765 Active 2023 Gerard Cornell MD [address], [address], [place], [address] , [place] [facility] 4 17:12:03 Injury of ankle 696763457 Active 2023 Gerard Cornell MD [address], [address], [place], [address] , [place] [facility] 4 10:35:24 Transient cerebral ischemia 720619443 Active 2023 Gerard Cornell MD [address], [address], [place], [address] , [place] [facility] 4 10:36:04 Acute sinusitis 28745769 Active 2023 Mariza Lee LPN null, [facility] 4 11:09:05 Candidias is of [facility] 51979309 Active 2023 Shelly Chao MA null, [facility] 4 13:12:12 Acute bronchiti s 04752204 Active 2023 Gerard Cornell MD [address] [place] [address], [facility] [address], [place], [address] , [facility] 4 11:46:38 Problem Notes None recorded. Procedures Surgical History Date Name Laterality Status Provider Name and Address Organization Details Recorded Time Foot completed Not Available [facility] 09/2022 07:26:14 Orthopedic Procedure completed Not Available [facility] 11/07/2022 07:26:14 Colonoscopy completed Not Available [facility] 11/07/2022 07:26:14 Imaging Results Imaging Date Name Status LastModified by Organiz ation Details LastModified Time 09/03/2023 US, duplex, carotid artery completed [email or web address] [facility] [address], [place], [address], 09/11/2023 11:59:18 01/22/2022 colonoscopy screening (PROC) completed BARCODE Information not available 04/27/2024 18:47:02 05/02/2024 bone density completed [email or web address] [facility] [address], [place], [address], 05/07/2024 10:09:04 06/05/2024 XR, chest, 1 view completed BARCODE Information not available 06/05/2024 18:09:21 06/16/2024 XR, chest, 2 view completed BARCODE Information not available 06/16/2024 18:06:27 06/05/2024 MRI, brain, w/o contrast completed BARCODE Information not available 07/08/2024 15:32:30 Procedure Notes None recorded. Medical Equipment None Reported. Allergies Allergen ID Allergen Name Allergen Category Reaction Reaction Severity Criticality Documentation Date Start Date Code Code System Note Provider Name and Address Organization Details Recorded Time 36337 rosuvasta tin medicatio n Not available Not available Not available 11/07/2022 24091 2 RxNorm bernard rivera n Not Available [facility] 3 07:36:29 Medications Name Sig Start Date Stop Date Status Note LastModified by Organization Details LastModified Time buspirone 5 mg tablet 12/31 completed Not Available Not Available Not Available prednisone 10 mg tablet Take by oral route take 3 tabs for 2 days then 2 tabs for 2 days then 1 tab for 2 days . active Not Available Not Available No t Available doxycycline hyclate 100 mg capsule Take 1 capsule twice a day by oral route. active Not Available Not Available No t Available atorvastati n 20 mg tablet TAKE 1 TABLET BY MOUTH EVERY DAY 01/08 completed Not Available Not Available Not Available atorvastati n 10 mg tablet Take 1 tablet every day by oral route for 30 days. active Not Available Not Available No t Available fluconazole 150 mg tablet TAKE 1 TABLET BY MOUTH ONCE FOR 1 DOSE active Not Available Not Available No t Available meloxicam 15 mg tablet Take 1 tablet every day by oral route. active Not Available Not Available No t Available metronidazo le 0.75 % (37.5 mg/5 gram) vaginal gel active Not Available Not Available Not Available Medrol (Javy) 4 mg tablets in a dose pack take as directed on the package 2023 active Not Available Not Available Not Avai lable dextroamphe tamine-amph etamine 10 mg tablet TAKE 1 TABLET BY MOUTH EVERY MORNING 01/08 completed Not Available Not Available Not Available sertraline 100 mg tablet 07/18 completed Not Available Not Available Not Available sumatriptan 50 mg tablet TAKE 1 TABLET BY MOUTH ONCE NEEDED FOR MIGRAINE DIRECTED MAY REPEAT IN 2 HOURS 04/27 completed Not Available Not Available Not Available metronidazo le 500 mg tablet Take 1 tablet every day by oral route for 7 days. 07/12 completed Not Available Not Available Not Available lamotrigine 25 mg tablet active Not Available Not Available Not Available amoxicillin 875 mg tablet Take 1 tablet every 12 hours by oral route with meals for 10 days. 08/28 completed Not Available Not Available Not Available pantoprazol e 40 mg tablet,lebron yed release 1 tab po qd prn 02/25 completed Not Available Not Available Not Available Advair Diskus 250 mcg-50 mcg/dose powder for inhalation Inhale 1 puff every 12 hours by inhalatio n route. active Not Available Not Available No t Available oxybutynin chloride ER 5 mg tablet,exte nded release 24 hr TAKE 1 TABLET BY MOUTH EVERY DAY 02/25 completed Not Available Not Available Not Available ergocalcife rol (vitamin D2) 1,250 mcg (50,000 unit) capsule one capsule Q week X 90 days then OTC 01/08 completed Not Available Not Available Not Available hydroxyzine HCl 10 mg tablet TAKE 1 TABLET BY MOUTH ONCE DAILY NEEDED FOR ANXIETY active Not Available Not Available No t Available fluticasone propionate 50 mcg/actuati on nasal spray,suspe nsion Inhale 2 sprays every day by intranasa l route at bedtime. 11/06 completed Not Available Not Available Not Available sertraline 50 mg tablet TAKE ONE AND ONE-HALF TABLET BY MOUTH EVERY DAY 07/18 completed Not Available Not Available Not Available dextroamphe tamine-amph etamine 5 mg tablet TAKE 1 TABLET BY MOUTH TWICE A DAY 01/08 completed Not Available Not Available Not Available amoxicillin 875 mg-potassiu m clavulanate 125 mg tablet TAKE 1 TABLET BY MOUTH EVERY 12 HOURS FOR 7 DAYS active Not Available Not Available No t Available escitalopra m 20 mg tablet TAKE 1 TABLET DAILY active Not Available Not Available No t Available ezetimibe 10 mg tablet TAKE 1 TABLET BY MOUTH EVERY DAY. NEEDS APPT FOR FURTHER REFILLS 2023 active Not Available Not Available Not Avai lable cyclobenzap rine 5 mg tablet TAKE 1 TABLET 3 TIMES A DAY BY ORAL ROUTE NEEDED. 12/31 completed Not Available Not Available Not Available aripiprazol e 5 mg tablet 07/31 completed Not Available Not Available Not Available rosuvastati n 20 mg tablet Take 1 tablet every day by oral route for 90 days. 07/31 completed Not Available Not Available Not Available duloxetine 30 mg capsule,del ayed release 11/06 completed Not Available Not Available Not Available duloxetine 60 mg capsule,del ayed release TAKE 1 CAPSULE BY MOUTH EVERY DAY 01/08 completed Not Available Not Available Not Available Mucinex DM 30 mg-600 mg tablet,exte nded release 12 hr Take 1 tablet every 12 hours by oral route as directed for 15 days. 09/02 completed Not Available Not Available Not Available eszopiclone 2 mg tablet Take 1 tablet(s) every day by oral route. 07/18 completed Not Available Not Available Not Available Clindesse 2 % vaginal cream,exten ded release 07/18 completed Not Available Not Available Not Available ProAir HFA 90 mcg/actuati on aerosol inhaler Inhale 2 puffs every 6 hours by inhalatio n route as needed. active Not Available Not Available No t Available aripiprazol e 2 mg tablet 07/31 completed Not Available Not Available Not Available fenofibrate nanocrystal lized 145 mg tablet Take 1 tablet every day by oral route for 30 days. 11/06 completed Not Available Not Available Not Available estradiol-n orethindron e acet 0.5 mg-0.1 mg tablet TAKE 1 TABLET BY MOUTH EVERY DAY 10/29 completed Not Available Not Available Not Available Symbicort 80 mcg-4.5 mcg/actuati on HFA aerosol inhaler Inhale 2 puffs twice a day by inhalatio n route for 30 days. 08/10 completed Not Available Not Available Not Available Pristiq 50 mg tablet,exte nded release Take 1 tablet every day by oral route. active Not Available Not Available No t Available GaviLyte-G 236 gram-22.74 gram-6.74 gram-5.86 gram oral solution USE DIRECTED TAKE 1 GLASS EVERY 20-30 MINUTES 01/08 completed Not Available Not Available Not Available vilazodone 10 mg tablet TAKE 1 TABLET BY MOUTH EVERY DAY WITH FOOD FOR 15 DAYS 04/27 completed Not Available Not Available Not Available Caplyta 42 mg capsule Take 1 capsule every day by oral route at bedtime for 30 days. 12/31 completed Not Available Not Available Not Available Qelbree 200 mg capsule,ext ended release active Not Available Not Available Not Available Vitals Date Recorded Body height Body mass index (BMI) Body weight Body temperature Heart rate Oxygen saturation Oxygen saturation in Arterial blood by Pulse oximetry Systolic blood pressure Diastolic blood pressure Provider Name and Address Organization Details Last Updated DateTime 3 160.02 cm 24.4 kg/m2 96762.7 5 g 97.7 [degF] 73 /min 98 % 98 % 110 mm[Hg] 60 mm[Hg] Ashlee Rutledge CMA [employer] 3 10:00:39 Date Recorded Body height Body mass index (BMI) Body weight Body temperature Heart rate Oxygen saturation Oxygen saturation in Arterial blood by Pulse oximetry Systolic blood pressure Diastolic blood pressure Provider Name and Address Organization Details Last Updated DateTime 4 160.02 cm 25.7 kg/m2 66744.5 3 g 98.8 [degF] 76 /min 98 % 98 % 122 mm[Hg] 64 mm[Hg] Goldie Shane CMA [employer] [facility] [employer] 4 09:07:34 Date Recorded Body height Body mass index (BMI) Body weight Body temperature Heart rate Oxygen saturation Oxygen saturation in Arterial blood by Pulse oximetry Systolic blood pressure Diastolic blood pressure Provider Name and Address Organization Details Last Updated DateTime 4 160.02 cm 25.2 kg/m2 12851.1 2 g 98.2 [degF] 77 /min 99 % 99 % 126 mm[Hg] 74 mm[Hg] Donya Garcia [facility] 4 16:14:09 Date Recorded Body height Body mass index (BMI) Body weight Body temperature Heart rate Oxygen saturation Oxygen saturation in Arterial blood by Pulse oximetry Systolic blood pressure Diastolic blood pressure Provider Name and Address Organization Details Last Updated DateTime 4 160.02 cm 23.7 kg/m2 25237.3 8 g 97.7 [degF] 85 /min 99 % 99 % 110 mm[Hg] 75 mm[Hg] GRETA Vasquez [facility] 4 10:07:52 Date Recorded Body height Provider Name an d Address Organization Details Last Updated DateTime 08/19/2024 160.[address] [employer] [facility] 08/19/2024 11:23:20 Social History Question Answer Notes LastModified by Organization Details LastModified Time Tobacco Smoking Status Former Smoker Not Available [employer] 11/07/2022 07:25:49 Do You Have An Advance Directive? No MIGRATION.0301 [id number] Information not available 11/07/2022 What Is Your Level Of Alcohol Consumption? Moderate MIGRATION.0301 [id number] Information not available 11/07/2022 Do You Wear A Helmet When Biking? No MIGRATION.0301 457111 Information not available 11/07/2022 What Is Your Level Of Caffeine Consumption? Moderate MIGRATION.0301 704927 Information not available 11/07/2022 In The 14 Days Before Symptom Onset, Have You Had Close Contact With A Laboratory-confi rmed COVID-19 While That Case Was Ill? No MIGRATION.0301 [id number] Information not available 11/07/2022 In The 14 Days Before Symptom Onset, Have You Had Close Contact With A Person Who Is Under Investigation For COVID-19 While That Person Was Ill? No MIGRATION.0301 650731 Information not available 11/07/2022 What Type Of Diet Are You Following? REGULAR MIGRATION.0301 818265 Information not available 11/07/2022 What Is The Highest Grade Or Level Of School You Have Completed Or The Highest Degree You Have Received? 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 No MIGRATION.0301 621370 Information not available 11/07/2022 When Did You Quit Smoking? 16+yearssincellydia crow Quit In 1993 2 Pk /day MIGRATION.0301 730778 Information not available 11/07/2022 Do You Use Insect Repellent Routinely? Yes MIGRATION.0301 258888 Information not available 11/07/2022 Where Do You Live? SingleLevelHouse MIGRATION.0301 287330 Information not available 11/07/2022 What Was The Date Of Your Most Recent Tobacco Screening? 07/18/2021 MIGRATION.0301 290087 Information not available 11/07/2022 Have You Ever Been Counseled For Unhealthy Alcohol Use? No MIGRATION.0301 589111 Information not available 11/07/2022 Do You Have Any Pets? Yes MIGRATION.0301 283450 Information not available 11/07/2022 What Is Your Relationship Status? MIGRATION.0301 405032 Information not available 11/07/2022 Do You Use Your Seat Belt Or Car Seat Routinely? Yes MIGRATION.0301 514046 Information not available 11/07/2022 Do You Have Smoke And Carbon Monoxide Detectors In Your Home? Yes MIGRATION.0301 253244 Information not available 11/07/2022 At What Age Did You Start Smoking Tobacco? 12 MIGRATION.0301 086434 Information not available 11/07/2022 Are You Passively Exposed To Smoke? No MIGRATION.0301 761452 Information not available 11/07/2022 Are There Any Smokers In Your House? No MIGRATION.0301 292409 Information not available 11/07/2022 Do You Feel Stressed (tense, Restless, Nervous, Or Anxious, Or Unable To Sleep At Night)? [id number] MIGRATION.0301 261661 Information not available 11/07/2022 Do You Use Any Illicit Or Recreational Drugs? No MIGRATION.0301 068558 Information not available 11/07/2022 Do You Use Sunscreen Routinely? Yes MIGRATION.0301 377436 Information not available 11/07/2022 Has Tobacco Cessation Counseling Been Provided? No MIGRATION.0301 789655 Information not available 11/07/2022 Have You Recently Traveled Abroad? No MIGRATION.0301 238126 Information not available 11/07/2022 Do You Have Any Dietary Restrictions? No MIGRATION.0301 225174 Information not available 11/07/2022 Do You Or Have You Ever Used Any Other Forms Of Tobacco Or Nicotine? No MIGRATION.0301 238704 Information not available 11/07/2022 Sex: Female Functional Status Question Answer Note LastModified by Organizat ion Details LastModified Time What is your exercise level? None [id number] Information not available 11/07/2022 Mental Status None recorded. Family History Relationship Description Onset Age of this Age Resolved Age Notes LastModified by Organization Details LastModified Time Father Diabetes mellitus MIGRATION.146 [id number] Not available 11/07/2022 07:26:15 Brother Malignant neoplastic disease Colon MIGRATION.573 [id number] Not available 11/07/2022 07:26:15 Maternal Grandmother Malignant neoplastic disease Breast MIGRATION.938 [id number] Not available 11/07/2022 07:26:15 Paternal Grandmother Malignant neoplastic disease Breast MIGRATION.477 [id number] Not available 11/07/2022 07:26:15 Maternal Aunt Malignant neoplastic disease Breast MIGRATION.724 [id number] Not available 11/07/2022 07:26:15 Sister Malignant neoplastic disease Thyroi d MIGRATION.321 [id number] Not available 11/07/2022 07:26:15 Paternal Grandfather Malignant neoplastic disease Lung MIGRATION.090 [id number] Not available 11/07/2022 07:26:15 Medical History Condition Response SLEEP APNEA N MRSA N ALLERGIES/HAYFEVER N LUNG DISEASE/DISORDER N INSOMNIA N HISTORY OF DRUG ABUSE N RADIATION / CHEMOTHERAPY N COPD N HIGH CHOLESTEROL / HYPERLIPIDEMIA Y HYPERTHYROIDISM N BLOOD DISEASES N EAR OR HEARING PROBLEMS N HYPOTHYROIDISM N SHINGLES N DEPRESSION (INCLUDING POST ) N HAVE YOU BEEN HOSPITALIZED OR SEEN [facility] IN THE PAST YEAR ? N STROKE/TIA N ULCERS N OBESITY N ANEURYSM N HISTORY WITH COMPLICATIONS WITH ANESTHES IA ? Y ARTHRITIS Y USE OF BLOOD THINNERS N NO SIGNIFICANT PAST MEDICAL HISTORY N DIABETES, TYPE N PARATHYROID DISEASE N ENT N SEASONAL ALLERGIES N HEARTBURN / REFLUX N HEPATITIS / LIVER DISEASE N SLEEP DISORDER N HEADACHES/MIGRAINES N SEIZURES/EPILEPSY N CHF N PACEMAKER N DIZZINESS N HEART DISEASE/HEART PROBLEMS N AIDS/HIV N FRACTURES N HYPERTENSION N CANCER: SPECIFY N TOURETTE'S N ANXIETY DISORDER Y BLOOD TRANSFUSION N ANESTHESIA COMPLICATIONS N ANEMIA/BLOOD DISORDER N CHRONIC EAR INFECTIONS N AUTOIMMUNE DISEASE N TUBERCULOSIS N Gynecological History Statement/Question Response Abnormal Pap N Flow Moderate Weight gain N Dislike of Light during Menstrual Headac he N Do you get headaches during your period N Do your menstrual headaches get severe N Menses Monthly Y STIs/STDs N Obstetrics History GPAL:G 0 P 0 0 0 0 Immunizations Vaccine Type Date Status Note Provider Nam e and Address Organization Details Recorded Time COVID-19, mRNA, LNP-S, PF, 30 mcg/0.3 mL dose 04/08/2021 completed Not Available [facility] 3 07:36:15 COVID-19, mRNA, LNP-S, PF, 30 mcg/0.3 mL dose 03/18/2021 completed Not Available [facility] 3 07:36:15 Past Encounters Encounter ID Performer Location Encounter Start Date Encounter Closed Date Diagnosis/Indication Diagnosis SNOMED-CT Code Diagnosis ICD10 Code Diagnosis Note [id number] [facility] Internal Med [facility] [address] [facility] [place] [address] 07/18/2021 00:00:00 07/18/2021 17:45:25 [id number] [facility] Internal Med [address] [place] [address] 08/10/2021 00:00:00 08/10/2021 11:07:03 [id number] [facility] Internal Med [address] [address] 11/06/2021 00:00:00 11/06/2021 13:29:57 [id number] [facility] Urology [address] [address] 11/13/2021 00:00:00 11/13/2021 10:57:30 [id number] [facility] Internal Med [address] [address] 12/06/2021 00:00:00 12/06/2021 17:04:11 [id number] _ATHENA_M IGRATION_ DEFAULT_1 _1 , 12/06/2021 00:00:00 12/06/2021 12:32:13 [id number] [facility] [address] [address] 01/08/2022 00:00:00 01/08/2022 21:12:00 [id number] [facility] Internal Med [address] [address] 01/19/2022 00:00:00 01/19/2022 12:28:35 [id number] [facility] ENT [place] [address] [place] [address] 03/13/2022 00:00:00 03/13/2022 12:32:30 [id number] [facility] Internal Med [address] [address] 03/29/2022 00:00:00 03/29/2022 17:38:31 [id number] _ATHENA_M IGRATION_ DEFAULT_1 _1 , 05/16/2022 00:00:00 05/16/2022 13:25:10 [id number] [facility] Internal Med [address] [address] 07/05/2022 00:00:00 07/05/2022 17:14:57 [id number] [facility] Internal [address] [address] 10/29/2022 00:00:00 10/29/2022 13:09:42 [id number] Db Giron MD [facility] Urology [place] [address] [facility], [address] [place] [address] 11/26/2022 10:56:09 11/26/2022 11:33:18 Cyst of kidney 536987977 N28.1 normal CT- Urogram at [facility] 03/2021norm al [facility] 03/17/21norm la CT 12/01/21 (slighly larger 9cm)This is a bosniak class 1 simple cyst, benign,-st able on [facility] 10/2022-f/u 1 year Overactive urinary bladder 442900896 N32.81 does not want meds.recom mend avoidance of bladder irritants [id number] Gerard Cornell MD [facility] Internal [address] [address] 12/12/2022 12:11:57 12/12/2022 12:36:52 Gastroesophageal reflux disease 477824242 K21.9 foods to avoid discussed, EGD report discussed [id number] Gerard Cornell MD [facility] Internal Med [address] [place] [address] 02/25/2023 09:34:59 02/25/2023 10:14:54 Hyperlipidemia 27524167 E78.5 much better, keep watching diet Fibromyalgia 756604280 M 79.7 not on meds Anxiety 96623739 F41.9 better with meds Attention deficit hyperactivity disorder 056001707 F90.9 meds help Cyst of kidney 502356795 N28.1 seen urologist Bilateral tinnitus 77050 45769 102 H93.13 seen ENT, not better Bilateral hearing loss 17551213 H91.93 using hearing aids Hypertriglyceridemia 302 831013 E78.1 better, no meds Compressio n fracture of thoracic vertebra 8029823836 104 M48.54XA pain off and on Osteopenia 685259939 M85 .80 take caltrate, dexa 11/2021 Adult [facility] th examination 936790054 Z00.00 adult health examinatio nColonosco py- 01/28, polypMammo gram- 2022- NL per pt [facility] MORTGAGE LOAN REVIEWER orderedDEX A- 11/28Pneumo vax- NEVERFLU- Does not wantCOVID- has had both injections , does not have card on her Overactive urinary bladder 765611155 N32.81 NO MEDS NEEDED Gastroesop hageal reflux disease 064928548 K21.9 improved Diabetes m ellitus screening 751564983 Z13.1 high risk ( gestationa l, ) [id number] Gerard Cornell MD [facility] Internal Med [address] [address] 05/27/2023 16:34:29 05/27/2023 16:52:34 Vertigo 355739207 R42 otc meclizines [facility] [id number] Gerard Cornell MD [facility] Internal [address] [address] 07/31/2023 09:51:36 07/31/2023 10:39:26 Dizziness 598794601 R42 [id number] Gerard Cornell MD [facility] Internal [address] [address] 01/01/2024 08:59:12 01/01/2024 09:37:06 Hyperlipidemia 95895180 E78.5 keep watching diet Fibromyalgia 140201260 M 79.7 not on meds Anxiety 38127337 F41.9 better, no meds Attention deficit hyperactivity disorder 643670401 F90.9 meds help Cyst of kidney 290451981 N28.1 seen urologist Bilateral tinnitus 31617 97595 102 H93.13 seen ENT, better Bilateral hearing loss 62544587 H91.93 has hearing aids Hypertriglyceridemia 302 449203 E78.1 better, no meds Compressio n fracture of thoracic vertebra 4110375052 104 M48.54XA pain off and on Osteopenia 750611050 M85 .80 take caltrate, dexa 11/2021 Adult [facility] th examination 160763599 Z00.00 adult health examinatio nColonosco py- 01/28, polypMammo gram- 2022- NL per pt [facility] MORTGAGE LOAN REVIEWER orderedDEX A- 11/28Pneumo vax- NEVERFLU- Does not wantCOVID- has had both injections , does not have card on her Overactive urinary bladder 898721184 N32.81 NO MEDS NEEDED Gastroesop hageal reflux disease 806799621 K21.9 improved Diabetes m ellitus screening 037548129 Z13.1 high risk ( gestationa l, ) Postmenopausal state 764 26424 Z78.0 Pain of le ft knee joint 1205129902 43085 M25.562 she is using a show insert and feeling better ( could be due to spinal scoliosis ) [id number] Gerard Cornell MD [facility] Internal Med [facility] [address] [place] [address] 04/27/2024 16:05:11 04/27/2024 17:10:57 Low back pain 018211760 M54.50 muscular Rectal discharge 9136915 01 R19.8 [id number] Gerard Cornell MD [facility] Internal [address] [address] 06/15/2024 10:00:20 06/15/2024 10:37:32 Injury of ankle 848044125 S99.911A sprainligh t weight wearing few hrs a day, keep using crutches for this week Transient cerebral ischemia 421841898 G45.9 TO GET ALL THE RECORD [id number] Gerard Cornell MD [facility] Internal Med [address] [place] [address] 08/19/2024 11:16:33 08/19/2024 11:50:59 Hyperlipidemia 44768575 E78.5 keep watching diet Acute bronchitis 9083673 2 J20.9 otc mucinex Health Concerns Section Related Observation LastModified by Organization Detai ls LastModified Time None Recorded Concern Status LastModified by Organization Details LastModified Time None Recorded Advance Directives Directive N: Payers Encounter Date Sequence Insurance Name Policy Number Policy Aleman Covered Member ID Aleman Member ID Guarantor Name 07/31/2023 1 [facility] [id number] Nicole Vazquez [employer] [id number] Nicole Harnetiaux 01/01/2024 1 [facility] [id number] Nicole L Harnetiaux [id number] Nicole Harnetiaux 04/27/2024 1 [facility] [id number] Nicole L H[employer]et[employer]ux [id number] Nicole Harnetiaux 06/15/2024 1 [facility] [id number] Nicole L Harnetiaux [id number] Nicole Harnetiaux 08/19/2024 1 [facility] [id number] Nicole Vazquez [employer] [id number] Nicole Harnetiaux Notes Date Note Type Note Provider Name and Address Organization Details Recorded Time 07/31/2023 text/html she is feeling heaviness win the head, stays for hrs the goes away, symptoms are going on for few months.she had MRI done in 2021, lacunar infarctex smoker for 6 yrs, quit in 1993, was heavy smokeralso having migraine 3 x a month, gets better with otc Gerard Cornell MD [address] [place] [address], [address] [address], [place], [address], [facility] 07/31/2023 10:39:05 01/01/2024 text/html [facility] Also C/o left knee pain, Has been going on for years but lately getting worse, pain is not thee always but some times, no swelling ADHD- meds help, back to workMeds-Qelbree 200mgBipolar disorder-Seeing Dr. Pineda , better with medsAnxiety- no longer taking meds , not under control, waiting for a new psychiatristHyperlipid emia- not on meds, was very high 312, was not on any statins , came down to 191 Migraines- On meds, still misses work sometimes, gets migraines few x a yearMeds- sumatriptan 50mg as neededHypertriglycerid emia- watching diet Fibromyalgia-was using marijuana but not any moreBack pain- due to arthritisAllergic Rhinitis- no longer taking medsAcid Reflex- changed her diet and better , not taking meds, WAS on Pantoprazole 40mg daily , had EGDLeft renal cyst- was 8.5 cm, seen urology at [facility]/o compression fx of thoracic vertebra in the past due to parachute - landing , some tiems gets painCh tinnitus- has hearing aids not helpingHearing loss- has hearing aids, also has tinnitus , seen ENT, had dizziness and betterThoracic spine scoliosis- Not seeing pain management, has tried marijuana but has stopped. Has long as she keeps her stress down her back feels fineHad MRI, has small lacunar infact, no other abnormality, should not effect her any w Gerard Cornell MD [address], [place], [address], [facility] 01/01/2024 09:36:01 04/27/2024 text/html Pt is here today for a burning sensation Mid back like right below her right shoulder blade. Has been bothering her for about 1 month. Has not tried anything for relief.Does have a history of cyst on the kidney.Denies any pain at the moment. No problems urination Had a colonoscopy 2 yrs ago.Staring to have a pinkish brown discharge. Has been going on for about 4-5 months. Not Constant maybe sees it once every 3 weeks. Colonoscopy reviewed, had no hemorrhoids in 2021. Had one polyp removedCould be a little blood. Last seen 4 days ago Gerard Cornell MD [address], [place], [address], [facility] 04/27/2024 17:12:51 06/15/2024 text/html Pt is here today for ankle pain, happened when twisted her right ankleWithin the last 10 daysFriday morning left arm went numb, went to the school nurse and went to [facility], They did a CT with and without and thinks she may had TIA, transferred to [facility] had a MRI and discharge papers diag with a TIA. she was seen by neuro, had w/u. she is on asa, BP was 154still gets dizziness. swelling is there and hard to walk due to pain Also sprained her right ankle a week later and went to [place] for Xrays which were NL Depaul prescribed her Niacin for high chol, took it Saturday and had sweating, warm flushed and thought had a seizure. Did not go to the ER. Just stayed home and rested But stopped taking the Niacin Gerard Cornell MD [address], [place], [address], [facility] 06/15/2024 10:36:40 08/19/2024 text/html pt is here for s ick visit pt has a wet cough with little wheezing and a cough since 11 days with yellow phlegm. pt was on antibiotics 3weeks ago for sinus infection. pt has a yeast infection onset for 3 wks still. otc med are nyquil at night..doesn't seem to help pt wakes up coughing and not sleeping well..she has taken Diflucan and otcpt is fasting ([facility]) Gerard Cornell MD [address], [place], [address], [place] 08/19/2024 11:51:09 OBGyn Episode No OBEpisode recorded.
--- OUTSIDE RECORDS SUMMARY | 2024-10-08 22:19 | XMS_ITS | Encounter Summary ---
Author Organization [facility] Care Team Providers Care Director Of Assisted Living Name Role Phone Gerard Cornell MD Unavailable [phone] Gerard Cornell MD Primary Care Provider [phone] Jay Jay Montes MD Unavailable [phone] Encounter Details Date Type Department Care Team (Latest Contact Info) Description 10/07/2024 Travel Social History Tobacco Use Types Packs/Day Years Used Date Smoking Tobacco: Former Cigarettes Q uit: 07/31/1994 Smokeless Tobacco: Never Alcohol Use Standard Drinks/Week Comments Not Currently 0 (1 standard drink = 0.6 oz pur e alcohol) Comments Unknown Sex and Gender Information Value Date Recorded Sex Assigned at Not on file Legal Sex Female 1:55 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 Gender Identity Not on file Sexual Orientation Not on file documented as of this encounter Plan of Treatment Upcoming Encounters Date Type Department Care Team (Late st Contact Info) Description 01/06/2025 3:00 PM CDT Office Visit [facility] - Neurology - [place] [address] [place] [address] Rica Davidson APRN, MIDDLEWARE ARCHITECT [address] [place] [address] documented as of this encounter Visit Diagnoses Not on filedocumented in this encounter Care Teams Director Of Assisted Living Relationship Specialty Start Date End Date Gerard Cornell MD PCP - General Internal Medicine 11/21/23 Gerard Cornell MD Internal Medicine 08/06/23 Jay Jay Montes MD [address] [place] [address] Consulting Physician Neurology 11/21/23 documented as of this encounter
--- OUTSIDE RECORDS SUMMARY | 2024-10-08 22:19 | XMS_ITS | Encounter Summary ---
Author Organization [facility] Address [address] [place] [address] Phone Care Team Providers Care Fig Bar Machine Operator Name Role Phone Gerard Cornell MD Unavailable [phone] Gerard Cornell MD Primary Care Provider Jay Jay Montes MD Unavailable [phone] Encounter Details Date Type Department Care Team (Late st Contact Info) Description 10/08/2024 Telephone [facility] - Neurology [facility] [address] [place] [address] Rica Davidson, TOMBSTONE ERECTOR, THERAPY TECHNICIAN [address] [place] [address] Social History Tobacco Use Types Packs/Day Years Used Date Smoking Tobacco: Former Cigarettes Q uit: 07/31/1994 Smokeless Tobacco: Never Alcohol Use Standard Drinks/Week Comments Not Currently 0 (1 standard drink = 0.6 oz pur e alcohol) Comments Unknown Sex and Gender Information Value Date Recorded Sex Assigned at Not on file Legal Sex Female 1:55 PM 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 She noted her mouth clenched and she couldn't open it. She could not look side to side.she also noted that she tried to move a hair out of her face but her arm wouldn't do what she wanted. [id number] minutes or so. Patient was advised to call 911 or proceed to the ER next time. Anytime her symptoms last 30 minutes or more. Patient stated she had thought about doing that yesterday but she had her dog in the car with her. Advised this is really important as not to delay care. UREMENT PSYCHOLOGIST documented in this encounter Plan of Treatment Upcoming Encounters Date Type Department Care Team (Late st Contact Info) Description 01/06/2025 3:00 PM CDT Office Visit [facility] - Neurology - [place] [address] [place] [address] Rica Davidson APRN, THERAPY TECHNICIAN [address] [place] [address] documented as of this encounter Visit Diagnoses Not on filedocumented in this encounter Care Teams Fig Bar Machine Operator Relationship Specialty Start Date End Date Gerard Cornell MD PCP - General Internal Medicine 11/21/23 Gerard Cornell MD Internal Medicine 08/06/23 Jay Jay Montes MD [address] [place] [address] Consulting Physician Neurology 11/21/23 documented as of this encounter
--- OUTSIDE RECORDS SUMMARY | 2024-10-08 22:19 | XMS_ITS ---
Author Organization [facility] Address [address] [facility] [address] [facility] [address] [place] [address] Care Team Providers Care Gre Tutor Name Role Phone Gerard Cornell MD Primary Care Provider Unavail Gisela Perez Unavailable [phone] Medications Medication SIG (Take, Route, Fr equency, Duration) Notes Start Date End Date Status Qelbree 200 MG 1 capsule Oral Once a day for 90 days 11/20/2023 12/10/2024 Active Social History Sex Assigned At : Social History Observation Description Sex Assigned At Female Encounters Encounter Location Date Provider Diagnosis [facility] [facility] [address] [facility] [address] [place] [address] 09/11/2024 Gisela Ambrosio Attention-deficit hyperactivity disorder, predominantly inattentive type F90.0 Assessments Encounter Date Diagnosis (ICD Code) Assessment Notes Treatment Notes Treatment Clinical Notes Section Notes 09/11/2024 Attention-deficit hyperactivity disorder, predominantly inattentive type (ICD-10 - F90.0) Plan Of Treatment Medication Medication Name Sig Start Date Stop Date Notes Qelbree 200 MG 1 capsule Oral Once a day for 90 days 11/1912/10/2024 Next Appt Details Provider Name:Gisela Ambrosio, 12/15/2024 08:00:00 AM, [address], [address], [place], [address], Progress Notes * BUTCH ELLSWORTH LDOB:[birth year] (54 yo F)Acc No.[id number]:09/11/2024 Patient:?BUTCH ELLSWORTH :1970???Age:54 Y???Sex:Female Address:[facility] [place], [address] * Refills? Refill Qelbree Capsule Extended Release 24 Hour, 200 MG, Oral, 90, 1 capsule, Once a day, 90 days, Refills=0 Subjective: * Chief Complaints: * ??? * Medical History:? * Surgical History:? * Hospitalization/Major Diagno stic Procedure:? * Medications:? Objective: * Vitals:? * Physical Examination:? Assessment: * Assessment: 1.?Attention-deficit hyperac tivity disorder, predominantly inattentive type - F90.0??? Plan: * Treatment: * Procedure Codes:? * true * Date:? Generated for Theron fisher/Rosalie/Karo on:?10/08/2024 10:18 PM SPRINKLER FITTER
--- OUTSIDE RECORDS SUMMARY | 2024-10-08 22:19 | XMS_ITS ---
Author Organization [facility] As [facility] Address [address] [facility] [address] [place] [address] Care Team Providers Care Nursing Aide Name Role Phone Gerard Cornell MD Primary Care Provider Unavail able DailyRudi Unavailable [phone] Allergies Allergen (clinical drug ingredient) Drug/Non Drug Allergy documented on EMR Reaction Allergy Type Onset Date Status Substance with 8-tjczodf-7-methylgluta ryl-coenzyme A reductase inhibitor mechanism of action (substance) Statins Unknown Drug Allergy Active REASON FOR VISIT follow up Medications Medication SIG (Take, Route, Frequency, Duration) Notes Start Date End Date Status Fenofibrate 145 MG Oral 11/20/2023 Unknown Ergocalciferol 1.25 MG (12476 UT) Oral 11/20/2023 Unknown ESTRADIOL-NORETHINDRON E ACETAT 0.5-0.1 mg Oral *[facility] for [facility]Rx and Interaction Alerts* 11/20/2023 Unknown Ezetimibe 10 MG Oral 11/20/2023 Unk nown Atorvastatin Calcium 20 MG Oral 11/20/2023 Unknown Qelbree 200 MG 1 [...] days As needed for anxiety 06/16/2024 Active Social History Tobacco Use: Social History Observation [...] in the past year? Never (0 point) Encounters Encounter Location Date Provider Diagnosis [facility] [place] ([facility] [address] [facility] [address] [place] [address] 09/24/2024 Rudi Ambrosio Bipolar disorder, current episode depressed, mild or moderate severity, unspecified F31.30 ; Attention-deficit hyperactivity disorder, predominantly inattentive type F90.0 ; Generalized anxiety disorder F41.1 and Post-traumatic stress disorder, chronic F43.12 Assessments Encounter Date Diagnosis (ICD Code) Assessment Notes Treatment Notes Treatment Clinical Notes Section Notes 09/24/2024 Bipolar disorder, current episode depressed, mild [...] to present immediately to the emergency room. 09/24/2024 Attention-defici t hyperactivity disorder, predominantly inattentive type (ICD-10 - F90.0) 09/24/2024 Generalized anxiety disorder (ICD-10 - F41.1) 09/24/2024 Post-traumatic stress disorder, chronic (ICD-10 - F43.12) 09/24/2024 Other Overall stable, cont current medications. [...] effects of psychotropic medications. -Crisis prevention hotline 988. Plan Of Treatment Medication Medication Name Sig Start Date Stop Date Notes Qelbree 200 MG 1 capsule Oral Once a day for 90 days lamoTRIgine 25 MG 1 tablet Oral once a day for 90 days Treatment Notes Assessment Notes Bipolar disorder, current ep isode depressed, mild or moderate severity, unspecified Lamotrigine is an anticonvulsant and moo d stabilizer used in psychiatry. Lamotrigine use is [...] to present immediately to the emergency room. Other Overall stable, cont current medications. Patient educated on all medications including potential benefits, side effects, risks. Educated on proper dosing schedule and importance of compliance. Next Appt Details Follow Up: 3 Months, Reason: medication follow up Provider Name:Rudi Ambrosio, 12/15/2024 08:00:00 AM, [address], [facility] [address], [place], [address], Progress Notes * BUTCH ELLSWORTH LDOB:[birth year] (54 yo F)Acc No.[id number]:09/24/2024 Patient:?BUTCH ELLSWORTH Provider:?RUDI AMBROSIO PMHNP :1970???Age:54 Y???Sex:Female D ate:09/24/2024 Address:[facility] [address] [facility] Pcp:Gerard Cornell MD Subjective: * Chief Complaints: * ???Follow up * HPI: ???History of Presenting Problem:?Anxiety?Rates anxiety 7/10 with 10 being most severe.?.?Depression?Rates depression 3/10 with 10 being most severe.?.?Mood lability?denies manic symptoms.?.?Psychosis?No hx psychosis?.?Suicidal ideation Passive, denies plan or intent.?.?ADHD?Stable on Qelbree.?Psychotherapy?[facility]?.?Here for medication follow up. Vilazodone discontinued last apt. Reports she was having increased anxiety the other night and took a hydroxyzine for the first time which helped resolve the anxiety. Reports sone her mini stroke, I am obsessed with my health . Anxiety has been heightened lately since stroke. Has been seeing a new counselor, talking over her emotions triggers. Has had one panic attack since last apt. Depression is overall stable. No suicidal ideation. ADHD is stable on Qelbree.? Sleep is good, getting about 8 hours nightly. Energy is fair.? Appetite is good. ???Depression Screening:?LUANNE-7 (2018 Edition)?Feeling nervous, anxious, or on edge?Several days,?Not being able to stop or control worrying?Several days,?Worrying too much about different things?Several days,?Trouble relaxing?Several days,?Being so restless that it is hard to sit still?Several days,?Becoming easily annoyed or irritable?Several days,?Feeling afraid as if something awful might happen?Not at all.?Renfrew-Suicide Severity Rating Scale:?Suicide Risk (CSRS-screener)?in the past one month Have you wished you were or wished you could go to sleep and not wake up??No.?Depression screening:?PHQ-9?Little interest or pleasure in doing things?Several days,?Feeling down, depressed, or hopeless?More than half the days,?Trouble falling or staying asleep, or sleeping too much?Several days,?Feeling tired or having little energy?Several days,?Poor appetite or overeating?Not at all,?Feeling bad about yourself or that you are a failure, or have let yourself or your family down?Not at all,?Trouble concentrating on things, such as reading the newspaper or watching television?Several days,?Moving or speaking so slowly that other people could have noticed; or the opposite, being so fidgety or restless that you have been moving around a lot more than usual?Not at all,?Thoughts that you would be better off or of hurting yourself in some way?Not at all,?Total Score?6,?Interpretation?Mild Depression.?Intervention?Depression Screening Findings?Positve,?Follow-Up for Depression?Mental health treatment assessment, Patient follow-up to return when and if necessary,?Additional Evaluation for Depression?Psychiatric interview and evaluation,?Name of the standardized tool used for adult depression screening:?Patient Health Questionnaire (PHQ-9).? * ROS:?General / Constitutional:?Patient denies?change in appetite, headache, lightheadedness, night sweats, sleep disturbance, weight gain, weight loss.?Cardiovascular:?Patient denies?palpitations.?Neurologic:?Patient denies?confusion, tic, tremor.?Psychiatric:?Patient denies?auditory / visual hallucinations, delusions, suicidal thoughts, tigist, psychosis.?Comments?See HPI for details.? * Medical History:? * Surgical History:?Other 09/1995Other 06/09/[id number], 2024 [facility] [place] * Hospitalization/Major Diagno stic Procedure:? * Family History:?Maternal Aun t: Alcohol abuse , Hypothyroidism .?Unspecified Relation: Attention deficit hyperactivity disorder , Alcohol abuse , Substance abuse .?Paternal Aunt: Secondary hyperthyroidism .?Mother: Alcohol abuse .?Maternal Grandmother: Suicide .?Brother: Malignant neoplasm of bone .? * Social History:?Tobacco Use:?Tobacco Control (Standard)?Tobacco use:?Nonsmoker.?Migrated Social History:?Migrated Social History: Alcohol Intake: None 12/26/2022,Tobacco Years: Former smoker 01/17/2022,Smoking Status: 15 05/27/2023. ???Drug/Alcohol:?AUDIT-C (Standard)?Did you have a drink containing alcohol in the past year??Yes,?How often did you have six or more drinks on one occasion in the past year??Never (0 point).?Miscellaneous:?Advance Care Planning?Are you your own decision-maker?Yes,?Do you have Power of City Editor for Health or Medical??No.? * Medications:?TakinghydrOXYzi ne HCl 10 MG Tablet 1 tablet Oral Once a day As needed for anxietylamoTRIgine 25 MG Tablet 1 tablet Oral once a day Qelbree 200 MG Capsule Extended Release 24 Hour 1 capsule Oral Once a day , stop date 12/14/2024Taking hydrOXYzine HCl 10 MG Tablet 1 tablet Oral Once a day As needed for anxietyTaking lamoTRIgine 25 MG Tablet 1 tablet Oral once a day Taking Qelbree 200 MG Capsule Extended Release 24 Hour 1 capsule Oral Once a day , stop date 12/14/2024UnknownSUMAtriptan Succinate 50 MG Tablet Oral Pantoprazole Sodium 40 MG Tablet Delayed Release Oral Symbicort 80-4.5 MCG/ACT Aerosol Inhalation Fenofibrate 145 MG Tablet Oral Ergocalciferol 1.25 MG (48018 UT) Capsule Oral Atorvastatin Calcium 20 MG Tablet Oral ESTRADIOL-NORETHINDRONE ACETAT 0.5-0.1 mg Tablet Oral , Notes to Pharmacist: *Reorder from [employer] for eRx and Interaction Alerts*Ezetimibe 10 MG Tablet Oral Medication List reviewed and reconciled with the patientUnknown SUMAtriptan Succinate 50 MG Tablet Oral Unknown Pantoprazole Sodium 40 MG Tablet Delayed Release Oral Unknown Symbicort 80-4.5 MCG/ACT Aerosol Inhalation Unknown Fenofibrate 145 MG Tablet Oral Unknown Ergocalciferol 1.25 MG (07543 UT) Capsule Oral Unknown Atorvastatin Calcium 20 MG Tablet Oral Unknown ESTRADIOL-NORETHINDRONE ACETAT 0.5-0.1 mg Tablet Oral , Notes to Pharmacist: *[facility] for eRx and Interaction Alerts*Unknown Ezetimibe 10 MG Tablet Oral Medication List reviewed and reconciled with the patient * Allergies:?Statinsno[Allergi es Verified] Objective: * Vitals:? * Examination: ???Psychiatry: ?Appearance:?well-groomed.?Abnormal body movements:?none.?Affect / mood:?sad.?Attention:?good.?Attitude:?cooperative.?Homicidal ideation:?none.?Suicidal ideation:?none.?Degree of awareness of surroundings:?within normal limits.?Delusions:?no.?Hallucinations:?no.?Insight:?good.?Judgement:?good.?Orientation:?awake, alert and oriented x 3.?Perceptual disorders:?no perceptual disorder noted.?Psychomotor activity:?within normal range.?Speech / language:?normal rate, volume, and articulation (RVR).?Thought content:?appropriate.?Thought process:?intact.? Assessment: * Assessment: 1.?Bipolar disorder, current episode depressed, mild or moderate severity, unspecified - F31.30 (Primary)???2.?Attention-deficit hyperactivity disorder, predominantly inattentive type - F90.0???3.?Generalized anxiety disorder - F41.1???4. Post-traumatic stress disorder, chronic - F43.12??? Plan: * Treatment: 2.?Attention-deficit hyperac tivity disorder, predominantly inattentive type? Refill Qelbree Capsule Extended Release 24 Hour, 200 MG, 1 capsule, Oral, Once a day, 90 days, 90, Refills 0.?? 3.?Others? Notes: Overall stable, cont current medications. Patient educated on all medications including potential benefits, side effects, risks. Educated on proper dosing schedule and importance of compliance. ?? Clinical Notes: -Assessment and treatment plan reviewed with patient. -Compliance with treatment plan importance discussed. -Discussed the risks/benefits of this medication -Discussed medication side effects. -Contact office if symptoms worsen. -Discussed that it can take up to 6-8 weeks to see full therapeutic effects of psychotropic medications. -Crisis prevention hotline 988. ?? * Procedure Codes:?62341 BEHAV ASSMT W/SCORE & DOCD/STAND [id number] VISIT COMPLEXITY INHERENT TO ONGOING CARE RELATED TO A PATIENT'S SINGLE, SERIOUS CONDITION OR A COMPLEX [id number] CLIN DEPRESSION SCREEN DOC * Follow Up:?3 Months (Reason: medication follow up) * Billing Information: * Visit Code:? 80767 OFFICE OUTPATIENT VISIT 15 MINUTES EXPANDED HISTORY AND EXAM/LOW MEDICAL DECISION MAKING. * Procedure Codes:? 78705 BEHAV ASSMT W/SCORE & DOCD/STAND INSTRUMENT. G2211 VISIT COMPLEXITY INHERENT TO ONGOING CARE RELATED TO A PATIENT'S SINGLE, SERIOUS CONDITION OR A COMPLEX CONDITION. G8431 CLIN DEPRESSION SCREEN DOC. * RVENTION SPECIALIST Sign off status: Completed true * Provider:?RAVI RANDLE Date:? Generated for Theron fisher/Rosalie/eTavesmitting on:?10/08/2024 10:19 PM INTERVENTION SPECIALIST History and Physical Notes * HPI (History of Present Illness) Category Sub-Category Detail Notes Category Not es History of Presenting Problem Anxiety Rates anxiety 7/10 with 10 b eing most severe. Here for medication follow up. Vilazodone discontinued last apt. Reports she was having increased anxiety the other night and took a hydroxyzine for the first time which helped resolve the anxiety. Reports sone her mini stroke, I am obsessed with my health . Anxiety has been heightened lately since stroke. Has been seeing a new counselor, talking over her emotions triggers. Has had one panic attack since last apt. Depression is overall stable. No suicidal ideation. ADHD is stable on Qelbree. Sleep is good, getting about 8 hours nightly. Energy is fair. Appetite is good. Depression Rates depression 3/1 0 with 10 being most severe. Suicidal ideation Passive, denies plan or intent. Psychosis No hx psychosis Mood lability denies manic symptom s. ADHD Stable on Qelbree Psychotherapy Aly[facility]- [facility] Depression screening PHQ-9 Little inte rest or pleasure in doing things: Several days Feeling down, depressed, or hopeless: Mo re than half the days Trouble falling or staying asleep, or sl eeping too much: Several days Feeling tired or having little energy: S everal days Poor appetite or overeating: Not at all Feeling bad about yourself o r that you are a failure, or have let yourself or your family down: Not at all Trouble concentrating on thi ngs, such as reading the newspaper or watching television: Several days Moving or speaking so slowly that other people could have noticed; or the opposite, being so fidgety or restless that you have been moving around a lot more than usual: Not at all Thoughts that you would be b jesus off or of hurting yourself in some way: Not at all Total Score: 6 Interpretation: Mild Depression Intervention Depression Screening Findings: P ositve Follow-Up for Depression: [facility] health treatment assessment, Patient follow-up to return when and if necessary Additional Evaluation for Depression: Ps ychiatric interview and evaluation Name of the standardized too l used for adult depression screening:: Patient Health Questionnaire (PHQ-9) Depression Screening LUANNE-7 (2018 Edition) Feelin g nervous, anxious, or on edge: Several days Not being able to stop or control worryi ng: Several days Worrying too much about different things : Several days Trouble relaxing: Several days Being so restless that it is hard to sit still: Several days Becoming easily annoyed or irritable: Se veral days Feeling afraid as if something awful mendel ht happen: Not at all Renfrew-Suicide Severity Rating Scale Suicide Risk (CSRS-screener) in the past one month Have you wished you were or wished you could go to sleep and not wake up?: No Examination Category Sub-Category Detail Notes Category Not es Psychiatry Appearance: well-groomed Attitude: cooperative Psychomotor activity: within normal rang e Abnormal body movements: none Attention: good Degree of awareness of surroundings: wit hin normal limits Orientation: awake, alert and namrata ented x 3 Affect / mood: sad Speech / language: normal rate, volume, and articulation (RVR) Insight: good Judgement: good Thought process: intact Thought content: appropriate Perceptual disorders: no perceptual diso rder noted Suicidal ideation: none Homicidal ideation: none Delusions: no Hallucinations: no
[2024-10-08] MEDS: POTASSIUM BICARBONATE 25 MEQ TABEF PO (22:51)
[2024-10-08] MEDS: ASPIRIN 81 MG CHEWABLE TABLET 324 MG PO (22:51)
[2024-10-09 00:24] LABS: Add Urine Microscopic? NO; Appearance Urine Clear (Clear); Bilirubin Urine Negative (Negative); Blood Urine Negative (Negative); Color Urine Yellow (Yellow); Glucose Urine UA Negative (Negative); Ketones Urine Negative (Negative); Leukocyte Esterase Ur Negative LEU/UL (Negative); Nitrate Urine Negative (Negative); Protein Urine Negative (Negative); Specific Grav Ur 1.006 (1.001-1.035); Urobilinogen Urine 0.2 mg/dL (<2.0); pH Urine 5.5 (5.0-9.0)
[2024-10-09 02:13] LABS: BEDSIDEPREGUCG Negative (Negative)
[2024-10-09 02:22] LABS: Bacteria Urine Rare /hpf; Non Pathogenic Casts 0-2; RBC Urine 0-2 /hpf (0-2); Squamous Epithelial Cell Urine Moderate /hpf (Few); WBC Urine 0-5 /hpf (0-3)
[2024-10-09 03:04] VITALS: BP 150/93; PULSE 82; RESP 15; O2SAT 100
== END 2024-10-09 03:06 | disposition home or self-care (01) ==
PROVIDERS: Physician Assistant; Emergency Provider Student in an Organized Health Care Education/Training Program; PCP Internal Medicine
DX: E87.6 Hypokalemia (principal); R29.818 Other symptoms and signs involving the nervous system; J45.909 Unspecified asthma, uncomplicated; E78.5 Hyperlipidemia, unspecified; K21.9 Gastro-esophageal reflux disease without esophagitis; Z86.73 Personal history of transient ischemic attack (TIA), and cerebral infarction without residual deficits; Z79.82 Long term (current) use of aspirin
CPT/HCPCS: 36415; 70450; 70496; 70498; 71045; 80053; 81003; 81025; 83735; 84484; 85025; 85610; 85730; 93005; 99284; A9270; Q9967

== ENCOUNTER 2024-10-14 19:55 | Emergency (ER) | payer OTHER, SELFPAY ==
--- NOTE | ~2024-10-14 | XR_ITS ---
Portable chest x-ray Comparison: 10/08/2024 Clinical History: Shortness of breath Findings: Lungs are clear, without focal consolidation or pleural effusion. Cardiomediastinal silho uette is stable. Bones and soft tissues are unremarkable. Impression: Clear lungs. Reviewed, dictated and finalized at location . R CLEANER Impression: Clear lungs.
--- OUTSIDE RECORDS SUMMARY | 2024-10-14 19:52 | XMS_ITS | Clinical Summary ---
Author Organization [facility] Address [address] [place] [address] Phone Care Team Providers Care Advertising Inserter Name Role Phone Gerard Cornell MD Unavailable [phone] Gerard Cornell MD Primary Care Provider [phone] Jay Jay Montes MD Unavailable [phone] Rica Davidson APRN, SALES ACCOUNT EXECUTIVE Unavailable + [phone] Allergies Active Allergy Reactions Criticality Noted Date [...] 1 dose. 10 Tablet 2 5 Active meclizine (ANTIVERT) 12.5 MG TabletIndicatio ns:Dizziness Take 1 Tablet by mouth every 8 hours as needed for Dizziness. 90 Tablet 3 5 Active SUMAtriptan (IMITREX) 50 MG Tablet Take 1 Tablet by mouth once as needed for Migraine. Use as directed. May repeat dose in 2 hours if headache recurs. 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 Gender Identity Not on file Sexual Orientation Not on file Last Filed Vital Signs Vital Sign Reading Time Taken Comments Blood Pressure 138/82 10/07/2024 9:56 AM 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 Pulse 104 10/07/2024 9:56 AM 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 Temperature 37.1 C (98.7 F) 10/07/2024 9:56 AM 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 Respiratory Rate 18 10/07/2024 9:56 AM 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 Oxygen Saturation 100% 10/07/2024 9:56 AM [employer]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 Inhaled Oxygen Concentration - - Weight 62.1 kg (136 lb 12.8 oz) 10/07/2024 9:56 AM 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 Height 160 cm (5' 3 ) 10/07/2024 9:56 AM 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 Body Mass Index 24.23 10/07/2024 9:56 AM [employer]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 Plan of Treatment Upcoming Encounters Date Type Department Care Team (Late st Contact Info) Description 11/18/2024 5:00 PM CDT Appointment [facility] MRI [address] [place] [address] Rica Davidson APRN, SALES ACCOUNT EXECUTIVE [address] [place] [address] Discharge Disposition: Discharged to home or Selfcare 01/06/2025 3:00 PM CDT [facility] [place] [place] [address] Rica Davidson APRN, SALES ACCOUNT EXECUTIVE [address] [place] [address] Health Maintenance Due Date Last Done Comments [...] Immunization (#1) 2024 SARS-COV-2 Immunization (3 - season) 2024 04/08/2021, 03/18/2021 Respiratory Syncytial Virus (RSV) Immunization (Adult) (1 - 1-dose 75+ series) 2045 Meningococcal Immunization (ACWY) Aged Out No longer eligible b ased on patient's age to complete this topic Rotavirus Immunization Aged Out No lo nger eligible based on patient's age to complete this topic Insurance Care Teams Advertising Inserter Relationship Specialty Start Date End Date Gerard Cornell MD PCP - General Internal Medicine 11/21/23 Gerard Cornell MD Internal Medicine 08/06/23 Jay Jay Montes MD [address] [place] [address] Consulting Physician Neurology 11/21/23 Rica Davidson APRN, SALES ACCOUNT EXECUTIVE [address] [place] [address] Nurse Practitioner Advanced Practice Nurse 10/07/24
--- OUTSIDE RECORDS SUMMARY | 2024-10-14 19:53 | XMS_ITS | Data Portability ---
Author Organization [facility], Main Office Address [address] [place] [address] Assessment No assessment recorded. Plan of Treatment Reminders Order Date Submit Date Provider Last Modified By Organization Details Last Modified Time Details Appointments None recorded. Lab glycohemogl obin, total, blood 2023 024 [email or web address] [facility] (Lab), [address] [place], [address], 4 08:08:02 lipid panel, serum 2023 024 [email or web address] [facility] (Lab), [address] [place], [address], 4 08:08:02 CMP, serum or plasma [email or web address] (Lab), [address] [place], [address], 4 08:08:02 Referral neurologist referral 2022 023 [email or web address] Jay Jay Montes MD, [address], [place], [address], 3 08:01:08 gastroenter ologist referral 2023 024 [email or web address] Jordin Hernandez MD, [address], [facility] [address], [address], 4 08:58:43 neurologist referral - Please call patient to schedule. 2023 024 [email or web address] Jay Jay Montes MD, [address], [place], [address], 5 10:24:23 Procedures None recorded. Surgeries None recorded. Imaging US, duplex, carotid artery 2022 023 [email or web address] [facility], [address], [place], [address], 3 08:06:12 bone density [email or web address] [facility], [address], [place], [address], 4 08:00:04 Medication Orders Medrol (Javy) 4 mg tablets in a dose pack 2023 024 [id number], [address] [facility], [place], [address], 4 11:50:07 ezetimibe 10 mg tablet 2023 024 [email or web address], [address] [place] [address], [address], 4 11:50:01 Patient TargetsNo targets recorded. Patient InstructionsNo instructions recorded. Reason for Referral Neurologist Referral for Diz ziness Referring Physician: Gerard Cornell, Internal Medicine, Encounter Date: 07/31/2023 Easement Man Referral for Rectal discharge Referring Physician: Gerard [...] ----- HIGH RISK: >240 >200 Not Available [facility] (Lab) [address] [place], [address], 02/10/2024 19:50:36 02/10/20 24 02/10/2024 LIPID PANEL triglyceride s 77 mg/dL 0-150 NIH GRICEL NSUS REPOR T RECOM MENDA TION FOR TRIGL YCERI AVINASH: ADULT CHILD LOW RISK: <150 ----- BODER LINE: 150-1 99 ----- HIGH RISK: >200 ----- Not Available [facility] (Lab) [address] [place], [address], 02/10/2024 19:50:36 02/10/20 24 02/10/2024 LIPID PANEL HDL cholesterol 72 mg/dL 40- Not Available [facility] (Lab) [address] [place], [address], 02/10/2024 19:50:36 02/10/20 24 02/10/2024 LIPID PANEL [...] WILL NOT BE REPOR TERESA. Not Available [facility] (Lab) [address] [place], [address], 02/10/2024 19:50:36 02/10/20 24 02/10/2024 COMPR EHENS JD METAB OLIC PANEL sodium 137 mmol/ L 137-14 5 Not Available [facility] (Lab) [address] [place], [address], 02/10/2024 19:50:41 02/10/20 24 02/10/2024 COMPR EHENS JD METAB OLIC PANEL potassium 4.1 mmol/ L 3.5-5. 1 Not Available [facility] (Lab) [address] [place], [address], 02/10/2024 19:50:41 02/10/20 24 02/10/2024 COMPR EHENS JD METAB OLIC PANEL chloride 105 mmol/ L 98-107 Not Available [facility] (Lab) [address] [place], [address], 02/10/2024 19:50:41 02/10/20 24 02/10/2024 COMPR EHENS JD METAB OLIC PANEL carbon dioxide 27 mmol/ L 22-30 Not Available [facility] (Lab) [address] [place], [address], 02/10/2024 19:50:41 02/10/20 24 02/10/2024 COMPR EHENS JD METAB OLIC PANEL anion gap 9.1 mmol/ L 14-22 low Not Available [facility] (Lab) [address] [place], [address], 02/10/2024 19:50:41 02/10/20 24 02/10/2024 COMPR EHENS JD METAB OLIC PANEL glucose 88 mg/dL 70-99 Not Available [facility] (Lab) [address] [place], [address], 02/10/2024 19:50:41 02/10/20 24 02/10/2024 COMPR EHENS JD METAB OLIC PANEL BUN 12 mg/dL 8-19 Not Available [facility] (Lab) [address] [place], [address], 02/10/2024 19:50:41 02/10/20 24 02/10/2024 COMPR EHENS JD METAB OLIC PANEL creatinine 0.76 mg/dL 0.66-1 .25 Not Available [facility] (Lab) [address] [place], [address], 02/10/2024 19:50:41 02/10/20 24 02/10/2024 COMPR EHENS JD METAB OLIC PANEL GFR >60 Refer ence Range : Wilmot ge GFR Healt hy Adult : >60 [...] or ethni c subgr oups, such as Hismn nics. Outsi de the valid ated sonya [...] s/kdo qi/gf r_cal culat or Not Available [facility] (Lab) [address] [place], [address], 02/10/2024 19:50:41 02/10/20 24 02/10/2024 COMPR EHENS JD METAB OLIC PANEL alkaline phosphatase 54 U/L 38-126 Not Available [facility] (Lab) [address] [place], [address], 02/10/2024 19:50:41 02/10/20 24 02/10/2024 COMPR EHENS JD METAB OLIC PANEL alanine aminotransfe rase 15 U/L 0-35 Not Available [facility] (Lab) [address] [place], [address], 02/10/2024 19:50:41 02/10/20 24 02/10/2024 COMPR EHENS JD METAB OLIC PANEL aspartate aminotransfe rase 27 U/L 15-37 Not Available [facility] (Lab) [address] [place], [address], 02/10/2024 19:50:41 02/10/20 24 02/10/2024 COMPR EHENS JD METAB OLIC PANEL bilirubin, total 0.80 mg/dL 0.20-1 .30 Not Available [facility] (Lab) [address] [place], [address], 02/10/2024 19:50:41 02/10/20 24 02/10/2024 COMPR EHENS JD METAB OLIC PANEL calcium 9.3 mg/dL 8.4-10 .2 Not Available [facility] (Lab) [address] [place], [address], 02/10/2024 19:50:41 02/10/20 24 02/10/2024 COMPR EHENS JD METAB OLIC PANEL total protein 7.0 g/dL 6.3-8. 2 Not Available [facility] (Lab) [address] [place], [address], 02/10/2024 19:50:41 02/10/20 24 02/10/2024 COMPR EHENS JD METAB OLIC PANEL albumin 4.6 g/dL 3.4-5. 0 Not Available [facility] (Lab) [address] [place], [address], 02/10/2024 19:50:41 02/10/20 24 02/10/2024 COMPR EHENS JD METAB OLIC PANEL globulin 2.4 g/dL 2.6-4. 2 low Not Available [facility] (Lab) [address] [place], [address], 02/10/2024 19:50:41 02/10/20 24 02/10/2024 COMPR EHENS JD METAB OLIC PANEL A/G ratio 1.9 ratio 1.0-2. 0 Not Available [facility] (Lab) [address] [place], [address], 02/10/2024 19:50:41 02/10/20 24 02/10/2024 TSH thyroid-stim ulating hormone 1.920 uIU/m L 0.465- 4.680 Not Available [facility] (Lab) [address] [place], [address], 02/10/2024 20:30:19 02/10/20 24 02/10/2024 HEMOG LOBIN A1C HA1C 4.8 % 4.0-6. 0 Diabe hilda Scree ezekiel Crite frank: <5.7% Consi stent with absen ce of diabe hilda 5.7-6 .4% Consi stent with incre ased risk for diabe hilda (pred iabet es) >OR=6 .5% Consi stent with diabe hilda REFER ENCE: Diabe hilda Care 2016, 39(Shore ppl.1 ):s13 -s22 Not Available [facility] (Lab) [address] [place], [address], 02/10/2024 20:31:51 09/10/19 24 09/03/2023 US, shayy x, carissa id arter y No observ ation record ed. [email or web address] [facility] [address], [place], [address], 09/11/2023 11:59:18 08/19/01/22/2022 colon oscop y scree ezekiel (PROC ) No observ ation record ed. BARCODE Not Available 2023 18:47:02 05/05/20 24 05/02/2024 bone densi ty No observ ation record ed. [email or web address] [facility] [address], [place], [address], 05/07/2024 10:09:04 06/05/20 24 06/05/2024 XR, chest , 1 view No observ ation record ed. BARCODE Not Available 2023 18:09:21 06/16/20 24 06/16/2024 XR, chest , 2 view No observ ation record ed. BARCODE Not Available 2023 18:06:27 07/08/20 24 06/05/2024 MRI, brain , w/o contr ast No observ ation record ed. BARCODE Not Available 2023 15:32:30 10/12/19 25 10/08/2024 CT, brain , w/o contr ast No observ ation record ed. [email or web address] Not Available 2024 08:34:52 10/12/19 25 10/08/2024 CT, angio gram, head, w/wo contr ast No observ ation record ed. [email or web address] Not Available 2024 08:34:52 Result Notes None recorded. Problems Name Problem SNOMED Code Status Onset Date Resolution Date Notes Provider Name and Address Organization Details Recorded Time Diarrheal disorder 332565468 Completed Not Available [facility] 3 07:30:26 Hearing loss 07439188 Active 2021 Not Available [facility] 3 07:30:26 Pain in throat 180587885 Completed Not Available [facility] 3 07:30:26 Psychogen ic dyspepsia 544197495 Active 2021 Not Available [facility] 3 07:30:26 Insomnia 142190116 Active Not Available [facility] 3 07:30:26 Asthma 128958956 Active Not Available [facility] 3 07:30:26 Microscop ic hematuria 848731376 Completed 202107/05/2022 Not Available [facility] 3 07:30:26 Fibromyal srinivas 629438079 Active 2020 Not Available [facility] 3 07:30:26 Lacunar infarctio n 084400010 Completed 202107/05/2022 Not Available [facility] 3 07:30:26 Gastroeso phageal reflux disease 301547640 Active Not Available [facility] 3 07:30:27 Fluid level behind tympanic membrane Completed Not Available [facility] 3 07:30:27 Long-term drug therapy Completed 202107/05/2022 Not Available [facility] 3 07:30:27 Adult health examinati on Active 2020 Not Available [facility] 3 07:30:27 Screening for malignant neoplasm of colon Completed 202007/05/2022 Not Available [facility] 3 07:30:27 Low back pain 767154980 Active 2021 Not Available [facility] 3 07:30:27 Foot joint pain 305488863 Completed Not Available [facility] 3 07:30:28 Hypertrig lyceridem ia 750646666 Active 2020 Not Available [facility] 3 07:30:28 Osteopeni a 902966775 Active 2022 Gerard Cornell MD [address] [place] [address], [address] , [facility] 4 08:42:47 Depressiv e disorder 55502083 Active Not Available [facility] 3 07:30:28 Sinusitis 33425902 Active Not Available [facility] 3 07:30:28 Arthritis of spine 666500776 Active 2020 Not Available [facility] 3 07:30:28 Disorder of function of stomach 648229805 Active 2021 Not Available [facility] 3 07:30:28 Attention deficit hyperacti vity disorder 404578700 Active 2021 [facility] Available [facility] 3 07:30:29 Mixed urinary incontine nce 254053253 Active 2021 Not Available [facility] 3 07:30:29 Chronic recurrent sinusitis 281531254 Completed Not Available [facility] 3 07:30:29 Asymmetri mervin sensorine ural hearing loss 044560294 Completed 202107/05/2022 Not Available [facility] 3 07:30:29 Infection of tick bite 479359215 Completed 202107/05/2022 Not Available [facility] 3 07:30:29 Bilateral tinnitus 50175781369 02 Active 2022 Not Available [facility] 3 07:30:29 Bilateral tinnitus 63542247954 02 Completed 202007/05/2022 Not Available [facility] 3 07:30:30 Anxiety 05312893 Active Not Available [facility] 3 07:30:30 Cough 79851739 Completed 202107/05/2022 Not Available [facility] 3 07:30:30 Compressi on fracture of thoracic vertebra 45067281255 04 Active 2022 Not Available [facility] 3 07:30:30 Compressi on fracture of thoracic vertebra 63881792942 04 Completed 202007/05/2022 Not Available [facility] 3 07:30:30 Cramp 28876660 Completed Not Available [facility] 3 07:30:31 Hyperlipi demia 38127676 Active Not Available [facility] 3 07:30:31 Dyspnea on exertion 36037281 Completed Not Available [facility] 3 07:30:31 Polyp of colon 16351960 Active 2021 Not Available [facility] 3 07:30:31 Rhinitis 72348192 Active Not Available [facility] 3 07:30:31 Cyst of kidney 960960770 Active 2021 Not Available [facility] 3 07:30:31 Posterior rhinorrhe a 12338973 Completed Not Available [facility] 3 07:30:32 Postmenop ausal state 26062239 Completed 202107/05/2022 Not Available [facility] 3 07:30:32 Overactiv e urinary bladder 757410335 Active 2021 Not Available [facility] 3 07:30:32 Palpitati ons 94413820 Completed Not Available [facility] 3 07:30:32 Fatigue 94061967 Completed Not Available [facility] 3 07:30:33 Internal hemorrhoi ds 39442854 Active 2021 Not Available [facility] 3 07:30:33 Bilateral hearing loss 99176946 Active 2020 Not Available [facility] 3 07:30:33 Vertigo 352638728 Active 2022 Gerard Cornell MD [address], [address], [place], [address] , [place] [facility] 3 16:52:05 Dizziness 628466809 Active 2022 Gerard Cornell MD [address], [address], [place], [address] , [facility] 3 10:38:07 Pain of left knee joint 86803992638 4107 Active 2023 Gerard Cornell MD [address], [address], [place], [address] , [facility] 4 09:34:42 Rectal discharge 962706354 Active 2023 Gerard Cornell MD [address], [address], [place], [address] , [place] [facility] 4 17:12:03 Injury of ankle 043297891 Active 2023 Gerard Cornell MD [address], [address], [place], [address] , [facility] 4 10:35:24 Transient cerebral ischemia 696496822 Active 2023 Gerard Cornell MD [address], [facility] [address], [place], [address] , [facility] 4 10:36:04 Acute sinusitis 14938072 Active 2023 Mariza Lee LPN null, [facility] 4 11:09:05 Candidias [facility] 52983257 Active 2023 Shelly Chao MA null, [facility] 13:12:12 Acute bronchiti s 67941364 Active 2023 Gerard Cornell MD [address], [facility] [address], [place], [address] , [facility] 4 11:46:38 Problem Notes None recorded. Procedures Surgical History Date Name Laterality Status Provider Name and Address Organization Details Recorded Time Foot completed Not Available [facility] 09/2022 07:26:14 Orthopedic Procedure completed Not Available [facility] 11/07/2022 07:26:14 Colonoscopy completed Not Available [facility] 11/07/2022 07:26:14 Imaging Results Imaging Date Name Status LastModified by Organiz ation Details LastModified Time 09/03/2023 US, duplex, carotid artery completed [email or web address] [facility] [address], [place], [address], 09/11/2023 11:59:18 01/22/2022 colonoscopy screening (PROC) completed BAR[facility] Information not available 04/27/2024 18:47:02 05/02/2024 bone density completed [email or web address] [facility] [address], [place], [address], 05/07/2024 10:09:04 06/05/2024 XR, chest, 1 view completed [facility] Information not available 06/05/2024 18:09:21 06/16/2024 XR, chest, 2 view completed [facility] Information not available 06/16/2024 18:06:27 06/05/2024 MRI, brain, w/o contrast completed [facility] Information not available 07/08/2024 15:32:30 10/08/2024 CT, brain, w/o contrast completed Information not available 10/14/2024 08:34:52 10/08/2024 CT, angiogram, head, w/wo contrast completed Information not available 10/14/2024 08:34:52 Procedure Notes None recorded. Medical Equipment None Reported. Allergies Allergen ID Allergen Name Allergen Category Reaction Reaction Severity Criticality Documentation Date Start Date Code Code System Note Provider Name and Address Organization Details Recorded Time 53386 rosuvasta tin medicatio n Not available Not available Not available 11/07/2022 25594 2 RxNorm blurr y visio n Not Available [facility] 07:36:29 Medications Name Sig Start Date Stop [...] EVERY DAY. NEEDS APPT FOR FURTHER REFILLS 12/11/ 2024 active Not Available Not Available Not Avai [...] Updated DateTime 3 160.02 cm 24.4 kg/m2 39957.7 5 g 97.7 [degF] 73 /min 98 % 98 % 110 mm[Hg] 60 mm[Hg] Ashlee Rutledge CMA [email or web address] 3 10:00:39 Date Recorded Body height Body mass index (BMI) Body weight Body temperature Heart rate Oxygen saturation Oxygen saturation in Arterial blood by Pulse oximetry Systolic blood pressure Diastolic blood pressure Provider Name and Address Organization Details Last Updated DateTime 4 160.02 cm 25.7 kg/m2 32987.5 3 g 98.8 [degF] 76 /min 98 % 98 % 122 mm[Hg] 64 mm[Hg] Goldie Shane CMA [employer] [facility] 4 09:07:34 Date Recorded Body height Body mass index (BMI) Body weight Body temperature Heart rate Oxygen saturation Oxygen saturation in Arterial blood by Pulse oximetry Systolic blood pressure Diastolic blood pressure Provider Name and Address Organization Details Last Updated DateTime 4 160.02 cm 25.2 kg/m2 77114.1 2 g 98.2 [degF] 77 /min 99 % 99 % 126 mm[Hg] 74 mm[Hg] Donya Garcia [employer] [facility] 4 16:14:09 Date Recorded Body height Body mass index (BMI) Body weight Body temperature Heart rate Oxygen saturation Oxygen saturation in Arterial blood by Pulse oximetry Systolic blood pressure Diastolic blood pressure Provider Name and Address Organization Details Last Updated DateTime 160.02 cm 23.7 kg/m2 09142.3 8 g 97.7 [degF] 85 /min 99 % 99 % 110 mm[Hg] 75 mm[Hg] GRETA Vasquez PR [employer] [facility] 10:07:52 Date Recorded Body height Provider Name an d Address Organization Details Last Updated DateTime 08/19/2024 160.02 cm Vaishali Gannonbronson PR [employer] [facility] 08/19/2024 11:23:20 Social History Question Answer Notes LastModified by Organization Details LastModified Time Tobacco Smoking Status Former Smoker Not Available [facility] 11/07/2022 07:25:49 Do You Have An Advance Directive? No MIGRATION.0301 [id number] Information not available 11/07/2022 What Is Your Level Of Alcohol Consumption? Moderate MIGRATION.0301 780236 Information not available 11/07/2022 Do You Wear A Helmet When Biking? No MIGRATION.0301 434116 Information not available 11/07/2022 What Is Your Level Of Caffeine Consumption? Moderate MIGRATION.0301 910069 Information not available 11/07/2022 In The 14 Days Before Symptom Onset, Have You Had Close Contact With A Laboratory-confi rmed COVID-19 While That Case Was Ill? No MIGRATION.0301 832077 Information not available 11/07/2022 In The 14 Days Before Symptom Onset, Have You Had Close Contact With A Person Who Is Under Investigation For COVID-19 While That Person Was Ill? No MIGRATION.0301 371289 Information not available 11/07/2022 What Type Of Diet Are You Following? REGULAR MIGRATION.0301 440892 Information not available 11/07/2022 What Is The Highest Grade Or Level Of School You Have Completed Or The Highest Degree You Have Received? 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 No MIGRATION.0301 974022 Information not available 11/07/2022 When Did You Quit Smoking? 16+yearssinyariel estevezpatricia Quit In 1993 2 Pk /day MIGRATION.0301 761339 Information not available 11/07/2022 Do You Use Insect Repellent Routinely? Yes MIGRATION.0301 746905 Information not available 11/07/2022 Where Do You Live? [place]LevelHouse MIGRATION.0301 342653 Information not available 11/07/2022 What Was The Date Of Your Most Recent Tobacco Screening? 07/18/2021 MIGRATION.0301 172352 Information not available 11/07/2022 Have You Ever Been Counseled For Unhealthy Alcohol Use? No MIGRATION.0301 749078 Information not available 11/07/2022 Do You Have Any Pets? Yes MIGRATION.0301 352919 Information not available 11/07/2022 What Is Your Relationship Status? MIGRATION.0301 423036 Information not available 11/07/2022 Do You Use Your Seat Belt Or Car Seat Routinely? Yes MIGRATION.0301 885931 Information not available 11/07/2022 Do You Have Smoke And Carbon Monoxide Detectors In Your Home? Yes MIGRATION.0301 896886 Information not available 11/07/2022 At What Age Did You Start Smoking Tobacco? 12 MIGRATION.0301 003199 Information not available 11/07/2022 Are You Passively Exposed To Smoke? No MIGRATION.0301 832357 Information not available 11/07/2022 Are There Any Smokers In Your House? No MIGRATION.0301 019256 Information not available 11/07/2022 Do You Feel Stressed (tense, Restless, Nervous, Or Anxious, Or Unable To Sleep At Night)? [id number] MIGRATION.0301 602245 Information not available 11/07/2022 Do You Use Any Illicit Or Recreational Drugs? No MIGRATION.0301 607987 Information not available 11/07/2022 Do You Use Sunscreen Routinely? Yes MIGRATION.0301 413497 Information not available 11/07/2022 Has Tobacco Cessation Counseling Been Provided? No MIGRATION.0301 017364 Information not available 11/07/2022 Have You Recently Traveled Abroad? No MIGRATION.0301 339709 Information not available 11/07/2022 Do You Have Any Dietary Restrictions? No MIGRATION.0301 621931 Information not available 11/07/2022 Do You Or Have You Ever Used Any Other Forms Of Tobacco Or Nicotine? No MIGRATION.0301 777957 Information not available 11/07/2022 Sex: Female Functional Status Question Answer Note LastModified by Organizat ion Details LastModified Time What is your exercise level? None MIGRATION.[id number] Information not available 11/07/2022 Mental Status None recorded. Family History Relationship Description Onset Age of this Age Resolved Age Notes LastModified by Organization Details LastModified Time Father Diabetes mellitus MIGRATION.629 [id number] Not available 11/07/2022 07:26:15 Brother Malignant neoplastic disease Colon MIGRATION.137 [id number] Not available 11/07/2022 07:26:15 Maternal Grandmother Malignant neoplastic disease Breast MIGRATION.681 [id number] Not available 11/07/2022 07:26:15 Paternal Grandmother Malignant neoplastic disease Breast MIGRATION.937 3649897 Not available 11/07/2022 07:26:15 Maternal Aunt Malignant neoplastic disease Breast MIGRATION.109 [id number] Not available 11/07/2022 07:26:15 Sister Malignant neoplastic disease Thyroi d MIGRATION.236 [id number] Not available 11/07/2022 07:26:15 Paternal Grandfather Malignant neoplastic disease Lung MIGRATION.053 [id number] Not available 11/07/2022 07:26:15 Medical History Condition Response SLEEP APNEA N MRSA N ALLERGIES/HAYFEVER N LUNG DISEASE/DISORDER N INSOMNIA N HISTORY OF DRUG ABUSE N COPD N RADIATION / CHEMOTHERAPY N HIGH CHOLESTEROL / HYPERLIPIDEMIA Y HYPERTHYROIDISM N BLOOD DISEASES N EAR OR HEARING PROBLEMS N HYPOTHYROIDISM N SHINGLES N DEPRESSION (INCLUDING POST ) N HAVE YOU BEEN HOSPITALIZED OR SEEN IN [facility] IN THE PAST YEAR ? N STROKE/TIA N ULCERS N OBESITY N HISTORY WITH COMPLICATIONS WITH ANESTHES IA ? Y ANEURYSM N ARTHRITIS Y USE OF BLOOD THINNERS N NO SIGNIFICANT PAST MEDICAL HISTORY N DIABETES, TYPE N PARATHYROID DISEASE N ENT N SEASONAL ALLERGIES N HEARTBURN / REFLUX N HEPATITIS / LIVER DISEASE N SLEEP DISORDER N SEIZURES/EPILEPSY N HEADACHES/MIGRAINES N CHF N PACEMAKER N DIZZINESS N AIDS/HIV N HEART DISEASE/HEART PROBLEMS N FRACTURES N HYPERTENSION N CANCER: SPECIFY N TOURETTE'S N ANXIETY DISORDER Y BLOOD TRANSFUSION N ANEMIA/BLOOD DISORDER N ANESTHESIA COMPLICATIONS N CHRONIC EAR INFECTIONS N AUTOIMMUNE DISEASE [...] mcg/0.3 mL dose 04/08/2021 completed Not Available [facility] 3 07:36:15 COVID-19, mRNA, LNP-S, PF, 30 mcg/0.3 mL dose 03/18/2021 completed Not Available [facility] 3 07:36:15 Past Encounters Encounter ID Performer Location Encounter Start Date Encounter Closed Date Diagnosis/Indication Diagnosis SNOMED-CT Code Diagnosis ICD10 Code Diagnosis Note [id number] [facility] 06 [address] [address] 07/18/2021 00:00:00 07/18/2021 17:45:25 [id number] [facility] [address] [address] 08/10/2021 00:00:00 08/10/2021 11:07:03 [id number] [facility] [address] [address] 7 11/06/2021 00:00:00 11/06/2021 13:29:57 [id number] [facility] [address] [address] 11/13/2021 00:00:00 11/13/2021 10:57:30 [id number] [facility] [address] [address] 12/06/2021 00:00:00 12/06/2021 17:04:11 [id number] _ATHENA_M IGRATION_ DEFAULT_1 _1 , 12/06/2021 00:00:00 12/06/2021 12:32:13 [id number] [facility] [address] [address] 01/08/2022 00:00:00 01/08/2022 21:12:00 [id number] [facility] [address] [place] [address] 01/19/2022 00:00:00 01/19/2022 12:28:35 [id number] [facility] [address] [place] [address] 03/13/2022 00:00:00 03/13/2022 12:32:30 [id number] [facility] [address] [address] 03/29/2022 00:00:00 03/29/2022 17:38:31 [id number] _ATHENA_M IGRATION_ DEFAULT_1 _1 , 05/16/2022 00:00:00 05/16/2022 13:25:10 [id number] [facility] [address] [address] 07/05/2022 00:00:00 07/05/2022 17:14:57 [id number] [facility] [address] [address] 10/29/2022 00:00:00 10/29/2022 13:09:42 [id number] Db Giron MD [facility] [place] [address] [facility], [address] [place] [address] 11/26/2022 10:56:09 11/26/2022 11:33:18 Cyst of kidney 777516993 N28.1 normal CT- [facility]gram at [facility] 03/2021norm al HANDY 03/17/21norm la CT 12/01/21 (slighly larger 9cm)This is a bosniak class 1 simple cyst, benign,-st able on [facility] 10/2022-f/u 1 year Overactive urinary bladder 994616798 N32.81 does not want meds.recom mend avoidance of bladder irritants [id number] Gerard Cornell MD [facility] [address] [place] [address] 12/12/2022 12:11:57 12/12/2022 12:36:52 Gastroesophageal reflux disease 639933447 K21.9 foods to avoid discussed, EGD report discussed [id number] Gerard Cornell MD [facility] [address] [place] [address] 02/25/2023 09:34:59 02/25/2023 10:14:54 Hyperlipidemia 47878156 E78.5 much better, keep watching diet Fibromyalgia 431098537 M 79.7 not on meds Anxiety 34002345 F41.9 better with meds Attention deficit hyperactivity disorder 964793504 F90.9 meds help Cyst of kidney 847176170 N28.1 seen urologist Bilateral tinnitus 99893 06315 102 H93.13 seen ENT, not better Bilateral hearing loss 17831753 H91.93 using hearing aids Hypertriglyceridemia 302 905936 E78.1 better, no meds Compressio n fracture of thoracic vertebra 7076711393 104 M48.54XA pain off and on Osteopenia 080038854 M85 .80 take caltrate, dexa 11/2021 Adult [facility] th examination 661046693 Z00.00 adult health examinatio nColonosco py- 01/28, polypMammo gram- 2022- NL per pt [facility] BUSINESS OBJECTS CONSULTANT orderedDEX A- 11/28Pneumo vax- NEVERFLU- Does not wantCOVID- has had both injections , does not have card on her Overactive urinary bladder 912380402 N32.81 NO MEDS NEEDED Gastroesop hageal reflux disease 973624883 K21.9 improved Diabetes m ellitus screening 785153355 Z13.1 high risk ( gestationa l, ) [id number] Gerard Cornell MD [facility] [address] [facility] [place] [address] 05/27/2023 16:34:29 05/27/2023 16:52:34 Vertigo 851749433 R42 otc meclizines rachael hydrated [id number] Gerard Cornell MD [facility] Internal Med [address] [facility] [place] [address] 07/31/2023 09:51:36 07/31/2023 10:39:26 Dizziness 050857198 R42 [id number] Gerard Cornell MD [facility] Internal Med [facility] [address] [facility] [place] [address] 01/01/2024 08:59:12 01/01/2024 09:37:06 Hyperlipidemia 93242194 E78.5 keep watching diet Fibromyalgia 031701760 M 79.7 not on meds Anxiety 92857507 F41.9 better, no meds Attention deficit hyperactivity disorder 492060425 F90.9 meds help Cyst of kidney 276673632 N28.1 seen urologist Bilateral tinnitus 30851 53005 102 H93.13 seen ENT, better Bilateral hearing loss 02716727 H91.93 has hearing aids Hypertriglyceridemia 302 443529 E78.1 better, no meds Compressio n fracture of thoracic vertebra 9207020628 104 M48.54XA pain off and on Osteopenia 494366849 M85 .80 take caltrate, dexa 11/2021 Adult [facility] th examination 781661444 Z00.00 adult health examinatio nColonosco py- 01/28, polypMammo gram- 2022- NL per pt [facility] BUSINESS OBJECTS CONSULTANT orderedDEX A- 11/28Pneumo vax- NEVERFLU- Does not wantCOVID- has had both injections , does not have card on her Overactive urinary bladder 072678225 N32.81 NO MEDS NEEDED Gastroesop hageal reflux disease 398913968 K21.9 improved Diabetes m ellitus screening 518566282 Z13.1 high risk ( gestationa l, ) Postmenopausal state 764 28289 Z78.0 Pain of le ft knee joint 4886118839 35821 M25.562 she is using a show insert and feeling better ( could be due to spinal scoliosis ) [id number] Gerard Cornell MD [facility] Internal Med [facility] [address] [facility] [place] [address] 04/27/2024 16:05:11 04/27/2024 17:10:57 Low back pain 579752609 M54.50 muscular Rectal discharge 4729259 01 R19.8 [id number] Gerard Cornell MD [facility] Internal Med [facility] [address] [facility] [place] [address] 06/15/2024 10:00:20 06/15/2024 10:37:32 Injury of ankle 036716128 S99.911A sprainligh t weight wearing few hrs a day, keep using crutches for this week Transient cerebral ischemia 401031450 G45.9 TO GET ALL THE RECORD [id number] Gerard Cornell MD [facility] Internal Med [address] [place] [address] 08/19/2024 11:16:33 08/19/2024 11:50:59 Hyperlipidemia 10785454 E78.5 keep watching diet Acute bronchitis 9385379 2 J20.9 otc mucinex Health Concerns Section Related Observation LastModified by Organization Detai ls LastModified Time None Recorded Concern Status LastModified by Organization Details LastModified Time None Recorded Advance Directives Directive N: Payers Encounter Date Sequence Insurance Name Policy Number Policy Aleman Covered Member ID Aleman Member ID Guarantor Name 07/31/2023 1 [facility] [id number] Nicole L Harnetiaux [id number] Nicole Harnetiaux 01/01/2024 1 [facility] [id number] Nicole L Harnetiaux [id number] Nicole Harnetiaux 04/27/2024 1 [facility] [id number] Nicole L Harnetiaux [id number] Nicole Harnetiaux 06/15/2024 1 [facility] [id number] Nicole L Harnetiaux [id number] Nicole Harnetiaux 08/19/2024 1 [facility] [id number] Nicole L Harnetiaux [id number] Nicole Harnetiaux Notes Date Note Type Note [...] gets better with otc Gerard Cornell MD [address] [facility], [place], [address], [facility] [employer] 07/31/2023 10:39:01/01/2024 text/html She is here toda y for her Routine follow up Also C/o [...] cyst- was 8.5 cm, seen urology at [facility]/o compression fx of thoracic vertebra in [...] her any w Gerard Cornell MD [address] [facility], [facility] [address], [place], [address], [place] [facility] [employer] 01/01/2024 09:36:01 04/27/2024 text/html Pt is here [...] days ago Gerard Cornell MD [address], [address], [place], [address], [employer] 04/27/2024 17:12:51 06/15/2024 text/html Pt is here today for ankle pain, happened when twisted her right ankleWithin the last 10 daysFriday morning left arm went numb, went to the school nurse and went to [place], They did a CT with and without and thinks she may had TIA, transferred to [facility] had a MRI and discharge papers diag with a TIA. she was seen by neuro, had w/u. she is on asa, BP was 154still gets dizziness. swelling is there and hard to walk due to pain Also sprained her right ankle a week later and went to [place] for Xrays which were NL [facility] prescribed her Niacin for high chol, took it Saturday and had sweating, warm flushed and thought had a seizure. Did not go to the ER. Just stayed home and rested But stopped taking the Niacin Gerard Cornell MD [address], [place], [address], [employer] 06/15/2024 10:36:40 08/19/2024 text/html pt is here [...] has taken Diflucan and otcpt is fasting ([facility]) Gerard Cornell MD [address], [place], [address], [employer] 08/19/2024 11:51:09 OBGyn Episode No OBEpisode recorded.
[2024-10-14 19:55] VITALS: BP 146/95; PULSE 115; RESP 24; TEMP 36.7; O2SAT 99
[2024-10-14 20:02] LABS: Glucose Point of Care 103 mg/dl (65-105)
[2024-10-15 02:08] VITALS: BP 132/91; PULSE 100; RESP 17; RESP 20; O2SAT 100
[2024-10-15 03:06] VITALS: BP 118/79; PULSE 93; RESP 14; O2SAT 98
--- NOTE | 2024-10-15 03:40 | ED.GENADULT ---
HPI - General Adult General Chief complaint: Unspecified Stated complaint: possible TIA, panic attack Time Seen by Provider: 10/15/24 02:53 Source: patient Mode of arrival: EMS Limitations: no limitations History of Present Illness HPI narrative: Patient prsents with shortness of breath and rapid breathing. She had these symptoms before a previous TIA and was concerned. In total she states she has had 3 TIAs, one 06/05/24 based on imaging findings, one on 09/23/24 for which she did not present but she states she was verbally diagnosed as a TIA by her neurologist after the fact when she reported her symptoms which included R eye blindness and then again last /Saturday when she was seen by myself. Symptoms at that time did not seem entirely consistent with a TIA. She did note that she had an abnormality with one of her arms but it was after clenching the steering wheel tightly during an episode in which her mouth was clenched and she felt like she couldn't turn her neck from side to side. Patient believes today's episode might have been a panic attack but the CECILIA had preceded her first TIA and for this reason she came to the ED. She already has a neurologist and underwent MRI in May 2024 and has an upcoming MRI scheduled in a few weeks. Today she felt lightheaded and weak, uneasy. She denies any dizziness. No unilateral symptoms or mouth clenching tight. She endorses carotid artery disease with her last US in 2020 and doesn't know if she needs another one. In general, she at first denies a cough but then states in retrospect that she has occasionally been bringing up very thick mucous. No nausea but she has been developing a sore throat and her head has been pounding. History of anxiety and she states she had already calmed down a bit by the time she called ems but still wanted to come to the ED. She notes that in the waiting room her Cardiomobile EKG device/machine that she wears indicated her heart rate was high so while in the waiting room she took a tablet of hydroxyzine that she takes for anxiety (although only the second time ever taking this med). PCP Abisai. Related Data Home Medications ?Medication ?Instructions ?Recorded ?Confirmed ?Last Taken ?Type viloxazine 200 mg capsule,extended 200 mg PO DAILY 11/01/22 11/01/22 Unknown History release 24 hr (Qelbree) ezetimibe 10 mg tablet 10 mg PO DAILY 05/27/24 Unknown History Allergies Allergy/AdvReac Type Severity Reaction Status Date / Time niacin Allergy Loss of Verified 10/14/24 19:50 Consciousness penicillin V Allergy Difficulty Verified 10/14/24 19:50 Breathing Hbprgah-ECD-XoG Reductase AdvReac Mild Headache Verified 10/14/24 19:50 Inhibitor PMFSH Past Medical History Medical History (Updated 10/16/24 @ 00:01 by Background Jennie) Right hand dominant Gestational diabetes Hyperlipidemia History of CVA (cerebrovascular accident) seen on CT Depression Anxiety GERD (gastroesophageal reflux disease) Asthma Social History Social History Smoking status: Never smoker Alcohol intake: current Alcohol use details: once a week Substance use: never Substance use type: does not use Living arrangements: alone Spiritual care concerns: No Exam Narrative: GENERAL: Well-appearing, well-nourished, and in no acute distress. HEAD: Normocephalic, atraumatic. EYES: Non injected, non icteric ENT: Nares clear, no rhinorrhea or epistaxis. NECK: Supple. CHEST: Speaking in full sentences. No respiratory distress. HEART: Regular rate and rhythm. . ABDOMEN: Soft, nondistended. EXTREMITIES: Normal range of motion. No lower extremity edema. SKIN: Warm, dry, no rash. NEURO: No focal deficits. Alert and oriented x3. No abnormal movement. Speaks clearly without aphasia or dysarthria. Moves extremities x4. Grossly normal / symmetric facial movements. PSYCH: Normal mood and affect. Calm. not tearful. Appropriate behavior and eye contact. Course Vital Signs Vital signs: Vital Signs Temperature 98.0 F 10/14/24 19:55 Pulse Rate 115 H 10/14/24 19:55 Respiratory Rate 24 H 10/14/24 19:55 Blood Pressure 146/95 H 10/14/24 19:55 Pulse Oximetry 99 10/14/24 19:55 Temperature 98.0 F 10/14/24 19:55 Pulse Rate 83 10/15/24 04:56 Respiratory Rate 18 10/15/24 04:56 Blood Pressure 125/82 10/15/24 04:56 Pulse Oximetry 100 10/15/24 04:56 Medical Decision Making [facility] Narrative Medical decision making narrative: Patient presents with acute onset shortnesss of breath and rapid breathing which had preceded her first TIA so she came to the ED. She believes it might have been anxiety and took a hydroxyzine tablet she is prescribed while waiting in the waiting room. this helped. In the emergency department she is afebrile with vital signs notable for tachycardia, tachypnea, and hypertension initially on arrival but all resolved on repeat. Point of care glucose normal. Patient does state that she has a sore throat and headache and had a cough for few weeks but no nausea. Her age, presence of cough, absence of lymphadenopathy, and absence of fever point against strep so will not obtain testing for this but will obtain viral swab And administer a 1 time dose of dexamethasone as this has been shown to improve times symptom resolution pharyngitis. Patient endorses carotid artery disease however CTA obtained last week did not suggest this; low/no utility in repeating. She also had no unilateral symptoms or neurological symptoms during today's episode so it does not appear today was a TIA. Given patient presented last week with concern for TIA and at the time the workup showed hypokalemia, will obtain baseline labs to see if this is also present again today. Will also brought in an add TSH and D-dimer given she was tachycardic and short of breath and keeps having recurrent symptoms. She tests positive for COVID and thsi explains her headache, sore throat, etc.. Discharged home in stable condition and advised follow up with her PCP and neurologist. Already has an MRI scheduled in a few weeks for further work up. Differential Diagnosis Differential Diagnosis: panick attack, acute viral syndrome/influenza/covid; Vital Signs Vital Signs: Vital Signs Temperature 98.0 F 10/14/24 19:55 Pulse Rate 115 H 10/14/24 19:55 Respiratory Rate 24 H 10/14/24 19:55 Blood Pressure 146/95 H 10/14/24 19:55 Pulse Oximetry 99 10/14/24 19:55 Temperature 98.0 F 10/14/24 19:55 Pulse Rate 83 10/15/24 04:56 Respiratory Rate 18 10/15/24 04:56 Blood Pressure 125/82 10/15/24 04:56 Pulse Oximetry 100 10/15/24 04:56 Lab Data Lab results reviewed: Yes I reviewed the patient's lab results. Lab results narrative: Thrombocytopenia 10/15/24 04:26 10/15/24 04:26 Labs: Lab Results 10/14/24 10/15/24 10/15/24 Range/Units 19:59 04:26 04:58 WBC 4.8 (4.5-10.0) K/mm3 RBC 4.26 (4.2-5.4) M/mm3 Hgb 13.0 (12.0-15.0) g/dL Hct 38.7 (37.0-47.0) % MCV 90.8 (80-100) fl MCH 30.5 (26-34) pg MCHC 33.6 (32-36) g/dl RDW 12.8 (11.5-14.5) % Plt Count 129 L (150-375) k/mm3 MPV 9.7 (7.4-10.4) fl Immature Gran % (Auto) 0.0 (0-0.5) % Neut % (Auto) 76.7 H (45.5-73.1) % Lymph % (Auto) 11.7 L (18.3-44.2) % [place] % (Auto) 7.5 (2.6-8.5) % Eos % (Auto) 3.5 (0-4.4) % Baso % (Auto) 0.6 (0.2-1.2) % Lymph # (Auto) 0.56 L (0.9-3.2) K/mm3 [place] # (Auto) 0.4 (0.1-0.6) K/mm3 Eos # (Auto) 0.2 (0-0.3) K/mm3 Baso # (Auto) 0.0 (0.0-0.1) K/mm3 Abs Immat Gran (auto) 0.00 (0.00-0.031) K/mm3 Absolute Neuts (auto) 3.7 (1.3-6.7) K/mm3 Absolute Nucleated RBC 0.000 (0.0-0.012) K/mm3 Nucleated RBC % 0.0 (0.0-0.2) % % Immature Plt Fraction 2.9 (0.9-11.2) % D-Dimer < 0.27 (<0.48) ug/mL Sodium 137 (137-145) mmol/L Potassium 3.8 (3.4-5.0) mmol/L Chloride 102 (98-107) mmol/L Carbon Dioxide 26 (22-30) mmol/L Anion Gap 9 (4-12) mmol/L BUN 9 (7-17) mg/dL Creatinine 0.70 (0.7-1.0) mg/dL Estim Creat Clear Calc 65 ml/min Estimated GFR > 60 (59 - ) Glucose 83 (65-110) mg/dL POC Capillary Glucose 103 (65-105) mg/dl Calcium 9.3 (8.4-10.2) mg/dL Magnesium 1.9 (1.6-2.3) mg/dL Total Bilirubin 0.9 (0.2-1.3) mg/dL AST 22 (14-36) U/L ALT 15 (6-35) U/L Alkaline Phosphatase 62 (38-126) U/L Troponin I < 0.012 (0.000-0.034) ng/mL Total Protein 7.0 (6.3-8.2) g/dL Albumin 4.4 (3.5-5.1) g/dL TSH (Reflex) 2.420 (0.465-4.68) uIU/mL Urine Color Yellow (Yellow) Urine Appearance Clear (Clear) Urine pH 7.0 (5.0-9.0) Ur Specific [place] 1.017 (1.001-1.035) Urine Protein Negative (Negative) mg/dL Urine Glucose (UA) Negative (Negative) mg/dL Urine Ketones 1+ H (Negative) mg/dL Ur Blood (Man) Negative (Negative) Urine Nitrate Negative (Negative) Urine Bilirubin Negative (Negative) Urine Urobilinogen 1.0 (<2.0) mg/dL Leukocyte Esterase Rfl Negative (Negative) LEONIE/UL Influenza A (RT-PCR) Negative (Negative) Influenza B (RT-PCR) Negative (Negative) RSV (RT-PCR) Negative (Negative) SARS-CoV-2 RNA (RT-PCR) Positive A (Negative) Imaging Data Attestation: I personally reviewed and interpreted this imaging study as follows: My impression: Diffuse haziness but symmetric and throughout entire body without focal infiltrate thus likely due to issue with penetration rather than acute intrathoracic process Radiologist's impression: Impression: Clear lungs. ECG Data EKG #1: Attestation: I personally reviewed and interpreted this ECG as follows: ECG completion date: 10/14/24 ECG completion time: 21:03 Interpretation: Sinus tachycardia at a rate of 113 beats per minute. NJ interval 129. QRS 85. QT/ QTC 3 9/376. Good R-wave progression across the precordial leads. No T-wave inversions. EKG #2: Attestation: I personally reviewed and interpreted this ECG as follows: ECG completion date: 10/15/24 ECG completion time: 04:21 Interpretation: normal sinus rhythm at a rate of 94 beats per minute. NJ interval 132. QRS 80. QT/QTC 332/383. Good R-wave progression across the precordial leads. Normal axis. No T-wave inversions. Normal ECG. Discharge Plan Discharge Clinical Impression: COVID-19, Thrombocytopenia Patient Disposition: Home, Self-Care Condition: Stable Instructions: Antibiotic Form, Viral Syndrome (ED), Thrombocytopenia (ED), COVID-19 (Coronavirus Disease 2019) (ED) Additional Instructions: you tested positive for COVID. This can explain of your symptoms of the cough, sore throat, lightheadedness and weakness that you have been experiencing. rest and maintain your hydration. Acetaminophen/Tylenol (maximum 4000 mg per day) is safe to take with NSAIDs (ibuprofen/Motrin) for pain relief and/or fever. Follow-up with primary care physician and keep any and all appointments that are upcoming with your neurologist / for MRI / etc. Patient Language: Israeli Prescriptions: New ibuprofen 600 mg tablet 600 mg PO TID PRN (Reason: pain) Qty: 20 0RF acetaminophen 500 mg capsule 1,000 mg PO Q6H PRN (Reason: pain) Qty: 20 0RF Cepacol Sore Throat-Cough 5-7.5 mg lozenge 1 denia PO Q4H PRN (Reason: cough) Qty: 16 0RF benzonatate 100 mg capsule 100 mg PO BID PRN (Reason: cough) Qty: 20 0RF No Action ezetimibe 10 mg tablet 10 mg PO DAILY aspirin 81 mg capsule 81 mg PO DAILY Qty: 30 0RF Qelbree 200 mg capsule,extended release 24hr 200 mg PO DAILY Follow-up/Referrals: Kraig,Gerard Mon MD [Primary Care Provider] - Stand Alone Forms: Work/School Release IP Time of Disposition: 05:44
--- NOTE | 2024-10-15 03:51 | ECG_ITS ---
Test Date: 2024-10-15 04:21:49 Measurements Intervals [place] Rate: 94 P: 47 OR: 132 QRS: 61 QRSD: 80 T: 58 QT: 332 QTc: 415 Interpretive Statements SINUS RHYTHM BASELINE ARTIFACT- I, II, AVR, AVL NORMAL ECG Compared to ECG 10/08/2024 17:09:35 No significant changes Electronically Signed On 10-15-2024 06:19:33 TIMING ADJUSTER by Ephraim Dueñas D.O.
--- OUTSIDE RECORDS SUMMARY | 2024-10-15 03:53 | XMS_ITS | Clinical Summary ---
Author Organization [facility] Address [address] [place] [address] Phone Care Team Providers Care Golf Player Assistant Name Role Phone Gerard Cornell MD Unavailable [phone] Gerard Cornell MD Primary Care Provider [phone] Jay Jay Montes MD Unavailable [phone] Rica Davidson APRN, ENTERER Unavailable + [phone] Allergies Active Allergy Reactions Criticality Noted Date [...] Type Department Care Team Description 10/08/2024 Telephone [facility] [address] [place] [address] Rica Davidson APRN, ENTERER 10/07/2024 10:00 AM PAROLE HEARING OFFICER Office Visit [facility] [address] [place] [address] Rica Davidson APRN, ENTERER Episodic migraine (Primary Dx); History of TIA [...] on file Legal Sex Female 1:55 PM PAROLE HEARING OFFICER Gender Identity Not on file Sexual Orientation Not on file Last Filed Vital Signs Vital Sign Reading Time Taken Comments Blood Pressure 138/82 10/07/2024 9:56 AM PAROLE HEARING OFFICER Pulse 104 10/07/2024 9:56 AM PAROLE HEARING OFFICER Temperature 37.1 C (98.7 F) 10/07/2024 9:56 AM PAROLE HEARING OFFICER Respiratory Rate 18 10/07/2024 9:56 AM PAROLE HEARING OFFICER Oxygen Saturation 100% 10/07/2024 9:56 AM PAROLE HEARING OFFICER Inhaled Oxygen Concentration - - Weight 62.1 kg (136 lb 12.8 oz) 10/07/2024 9:56 AM PAROLE HEARING OFFICER Height 160 cm (5' 3 ) 10/07/2024 9:56 AM PAROLE HEARING OFFICER Body Mass Index 24.23 10/07/2024 9:56 AM PAROLE HEARING OFFICER Plan of Treatment Upcoming Encounters Date Type Department Care Team (Late st Contact Info) Description 11/18/2024 5:00 PM CDT Appointment [facility] MRI [address] [place] [address] Rica Davidson APRN, ENTERER [address] [place] [address] Discharge Disposition: Discharged to home or Selfcare 01/06/2025 3:00 PM CDT [facility] [place] [place] [address] Rica Davidson APRN, ENTERER [address] [place] [address] Health Maintenance Due Date Last Done Comments [...] to complete this topic Insurance Care Teams Golf Player Assistant Relationship Specialty Start Date End Date Gerard Cornell MD PCP - General Internal Medicine 11/21/23 Gerard Cornell MD Internal Medicine 08/06/23 Jay Jay Montes MD [address] [place] [address] Consulting Physician Neurology 11/21/23 Rica Davidson APRN, ENTERER [address] [place] [address] Nurse Practitioner Advanced Practice Nurse 10/07/24
[2024-10-15] MEDS: dexAMETHasone 2 MG TABLET 10 MG PO (04:27)
[2024-10-15 04:37] LABS: Basophils Percent Auto 0.6 % (0.2-1.2); Eosinophils Absolute Auto 0.2 K/mm3 (0-0.3); Eosinophils Percent Auto 3.5 % (0-4.4); Hematocrit 38.7 % (37.0-47.0); Immature Platelet Fraction Pct 2.9 % (0.9-11.2); Lymphocytes Absolute Auto 0.56 K/mm3 (0.9-3.2); Lymphocytes Percent Auto 11.7 % (18.3-44.2); Mean Corpuscular HGB Conc 33.6 g/dl (32-36); Mean Corpuscular Hemoglobin 30.5 pg (26-34); Mean Corpuscular Volume 90.8 fl (80-100); Mean Platelet Volume 9.7 fl (7.4-10.4); Monocytes Absolute Auto 0.4 K/mm3 (0.1-0.6); Monocytes Percent Auto 7.5 % (2.6-8.5); Neutrophils Absolute Auto 3.7 K/mm3 (1.3-6.7); Neutrophils Percent Auto 76.7 % (45.5-73.1); Platelet Count Result 129 k/mm3 (150-375); Red Blood Count 4.26 M/mm3 (4.2-5.4); Red Cell Distribution Width 12.8 % (11.5-14.5); White Blood Count 4.8 K/mm3 (4.5-10.0)
[2024-10-15 04:56] VITALS: BP 125/82; PULSE 83; RESP 18; O2SAT 100
[2024-10-15 04:58] LABS: Troponin I < 0.012 ng/mL (0.000-0.034)
[2024-10-15 05:06] LABS: Add Urine Microscopic? NO; Appearance Urine Clear (Clear); Bilirubin Urine Negative (Negative); Blood Urine Negative (Negative); Color Urine Yellow (Yellow); Glucose Urine UA Negative (Negative); Ketones Urine 1+ mg/dL (Negative); Leukocyte Esterase Ur Negative LEU/UL (Negative); Nitrate Urine Negative (Negative); Protein Urine Negative (Negative); Specific Grav Ur 1.017 (1.001-1.035)
[2024-10-15 05:13] LABS: Influenza A QL RT-PCR Negative (Negative); Influenza B QL RT-PCR Negative (Negative); RSV RNA, RT-PCR Negative (Negative); SARS-CoV-2 RNA PCR Positive (Negative)
[2024-10-15 05:32] LABS: D Dimer < 0.27 ug/mL (<0.48)
[2024-10-15 07:11] LABS: Alanine Aminotransferase 15 U/L (6-35); Albumin Level 4.4 g/dL (3.5-5.1); Alkaline Phosphatase 62 U/L (38-126); Anion Gap 9 mmol/L (4-12); Aspartate Amino Transferase 22 U/L (14-36); Bilirubin,Total 0.9 mg/dL (0.2-1.3); Blood Urea Nitrogen 9 mg/dL (7-17); Calcium 9.3 mg/dL (8.4-10.2); Carbon Dioxide 26 mmol/L (22-30); Chloride 102 mmol/L (98-107); Estimated CRCL calculation 65 ml/min; Estimated Glomerular Filt Rate > 60; Glucose 83 mg/dL (65-110); Magnesium 1.9 mg/dL (1.6-2.3); Potassium 3.8 mmol/L (3.4-5.0); Sodium 137 mmol/L (137-145)
== END 2024-10-15 05:53 | disposition home or self-care (01) ==
PROVIDERS: Emergency Provider Student in an Organized Health Care Education/Training Program; PCP Internal Medicine
DX: U07.1 COVID-19 (principal); D69.6 Thrombocytopenia, unspecified; Z86.73 Personal history of transient ischemic attack (TIA), and cerebral infarction without residual deficits; E78.5 Hyperlipidemia, unspecified; F41.8 Other specified anxiety disorders; K21.9 Gastro-esophageal reflux disease without esophagitis; J45.909 Unspecified asthma, uncomplicated
CPT/HCPCS: 36415; 71045; 80053; 81003; 82948; 83735; 84443; 84484; 85025; 85055; 85380; 87637; 93005; 99284; J8540

== ENCOUNTER 2024-11-03 10:25 | Outpatient (CLI) | payer OTHER, SELFPAY ==
--- NOTE | ~2024-11-03 | CT_ITS ---
EXAMINATION: CT abdomen wo/w con DATE: 11/03/2024 10:58 INDICATION: Renal cyst TECHNIQUE: Computed tomography (CT) of the abdomen was performed without and with 100 mL Omnipaque-35 0 intravenous contrast. Automated exposure control and iterative reconstruction technique were employ ed. The dose-length product was 358.10 mGy-cm. COMPARISON: CT dated 12/01/2021 and ultrasound dated 12/01/2022 FINDINGS: Lung bases are clear. Heart size is normal. No pericardial or pleural effusion. Liver, gallbladder, s pleen, pancreas and right kidney are normal. There is been some interval increase in size of a large simple appearing left renal cyst currently measuring 9.1 x 7.8 cm maximal transaxial dimensions versu s 8.5 x 7.1 cm at the time of the prior study. Visualized portions of bowels are unremarkable. No pat hologically enlarged abdominal or upper pelvic lymphadenopathy. Chronic anterior wedging at T12 with 20% anterior vertebral body height loss. There is severe disc height loss with degenerative endplate changes at T11-T12. IMPRESSION: 1. Interval increase in size of a now 9.1 x 7.8 cm simple appearing left renal cyst. Reviewed, dictated and finalized at location B. ING INSPECTOR
== END 2024-11-03 10:26 | disposition home or self-care (01) ==
LOC: MICIMG 10:26
PROVIDERS: PCP Internal Medicine; Visit Provider Internal Medicine
DX: N28.1 Cyst of kidney, acquired (principal)
CPT/HCPCS: 74170; Q9967

== ENCOUNTER 2024-11-03 10:30 | Outpatient (CLI) | payer OTHER, SELFPAY ==
--- NOTE | ~2024-11-03 | MR_ITS ---
EXAMINATION: MR brain/brain stem wo con DATE: 11/03/2024 11:18 INDICATION: Transient ischemic attack. TECHNIQUE: Magnetic resonance imaging (MRI) of the brain and brainstem was performed without intraven ous contrast. COMPARISON: Brain MRI 03/23/2022, head CT 10/09/2024 FINDINGS: There is no intracranial hemorrhage, acute infarction, or abnormal intracranial mass lesion . There are 3 foci of increased T2-weighted signal intensity in the cerebral white matter, which is n ormal for the patient's age. The ventricles are normal in size. The orbits are normal. There is mild mucosal thickening in the ethmoid sinuses. The mastoid air cells are normal. IMPRESSION: 1. Normal brain. Reviewed, dictated and finalized at location A. ANIC FOREMAN IMPRESSION: 1. Normal brain.
== END 2024-11-03 10:31 | disposition home or self-care (01) ==
LOC: MICIMG 10:31
PROVIDERS: PCP Internal Medicine; Visit Provider Clinical Nurse Specialist Adult Health
DX: R42 Dizziness and giddiness (principal); Z86.73 Personal history of transient ischemic attack (TIA), and cerebral infarction without residual deficits
CPT/HCPCS: 70551

== ENCOUNTER 2025-04-02 13:00 | Outpatient (CLI) | payer OTHER, SELFPAY ==
--- NOTE | ~2025-04-02 | MM_ITS ---
EXAMINATION: MM screening anisa BI w alex HISTORY: Screening TECHNIQUE: Craniocaudal and mediolateral oblique 3-D tomosynthesis images were obtained and synthetic 2-D images were generated. CAD analysis was submitted and interpreted. COMPARISON: Comparison to multiple prior studies sequentially, with oldest reviewed study dated 02/2019. BREAST PARENCHYMAL COMPOSITION: Dense: The breasts are heterogeneously dense, which may obscure small masses FINDINGS: There is no evidence of suspicious mass, calcification, or architectural distortion to sugg est malignancy in either breast. There has been no suspicious interval change. IMPRESSION: 1. No mammographic evidence of malignancy. 2. Recommend routine screening mammography in one year. BI-RADS Category 1: Negative Reviewed, dictated and finalized at location A.
== END 2025-04-02 13:01 | disposition home or self-care (01) ==
LOC: MICIMG 13:01
PROVIDERS: PCP Internal Medicine; Visit Provider Obstetrics & Gynecology
DX: Z12.31 Encounter for screening mammogram for malignant neoplasm of breast (principal)
CPT/HCPCS: 77063; 77067